=== PATIENT | male | born 1965 | race Caucasian/White ===

== ENCOUNTER 2022-01-29 08:58 | Inpatient (IN) | payer SELFPAY ==
[2022-01-29] VITALS (26 sets, daily range): BP systolic 138–198; BP diastolic 70–113; PULSE 56–64; RESP 12–18; TEMP 36.2–36.6; O2SAT 97–100; BMI 37.8
--- NOTE | ~2022-01-29 | XR_ITS ---
EXAMINATION: XR small bowel follow through DATE: 02/02/2022 15:17 INDICATION: Abdominal pain and bloating, nausea and diarrhea. TECHNIQUE: Textile Artist radiograph(s) of the abdomen was/were obtained. Oral contrast was administered, and sequential radiographs of the abdomen were obtained until oral contrast was noted to be in the proxi mal colon. 9 overhead radiographs and 4 fluoroscopic images of the small bowel were obtained. Fluoros copy exposure time was 0.7 minutes. COMPARISON: CT dated 02/08/2022 FINDINGS: Transit time from the stomach to proximal colon was approximately 60 minutes. There is normal caliber and mucosal fold pattern throughout the small bowel. Terminal ileum is normal. Small amount of contr ast extends into the appendix. IMPRESSION: 1. Normal small bowel follow-through. Reviewed, dictated and finalized at location A. GN INTERN
--- NOTE | ~2022-01-29 | CT_ITS ---
EXAMINATION: CT brain wo con DATE: 02/05/2022 17:04 INDICATION: New onset dizziness TECHNIQUE: Computed tomography (CT) of the head was performed without intravenous contrast. Sagittal and coronal reconstructions were performed. The mA was adjusted according to patient size. Iterative reconstruction technique was employed. The dose-length product was 681.00 mGy-cm. COMPARISON: None FINDINGS: No acute intracranial hemorrhage, acute infarction or abnormal extra axial fluid collection. Ventricl es are normal and symmetric. No mass/mass effect. Multiple symmetric dystrophic calcification is at t he bilateral basal ganglia. The orbits, paranasal sinuses and mastoid air cells are normal. Intracran ial calcified cerebral atherosclerosis is noted. IMPRESSION: 1. No acute intracranial process. Reviewed, dictated and finalized at location A. ESS CONSULTANT
--- NOTE | ~2022-01-29 | MR_ITS ---
EXAMINATION: MR brain/brain stem wo/w con DATE: 02/05/2022 17:39 INDICATION: New onset dizziness TECHNIQUE: Magnetic resonance imaging (MRI) of the brain and brainstem was performed without and with 20 mL Multihance intravenous contrast. Sequences included sagittal and axial T1-weighted SE, axial d iffusion-weighted FS SE, axial T2*-weighted GRE, axial 3D SWAN, axial T2-weighted FLAIR, and axial T2 -weighted FSE. Postcontrast axial and coronal T1-weighted SE was obtained. Apparent diffusion coeffic ient (ADC) maps were created. COMPARISON: Head CT dated 02/05/2022 FINDINGS: There are no areas of restricted diffusion to suggest acute infarction. No intracranial hemorrhage or abnormal intracranial mass lesion. There are a few scattered small foci of nonspecific increased T2- weighted signal intensity in the cerebral white matter which is within normal limits for age. Suscept ibility artifact associated with the dystrophic calcification is at the bilateral basal ganglia. Ther e are no intraparenchymal signal abnormalities seen on the other pulse sequences. The ventricles are symmetric and normal in size with normal variant cavum septum pellucidum at vergae. There are no abno rmal extra-axial fluid collections. Flow voids are seen in the cerebral arteries on the T2-weighted s equences consistent with their expected patency. No mastoid effusion. Visualized orbits and soft tiss ues are unremarkable. There are no areas of abnormal enhancement on the post contrast images. IMPRESSION: 1. Mild age-related changes in the brain. No acute intracranial process or abnormal enhancing brain l esions. Reviewed, dictated and finalized at location A. AKER IMPRESSION: 1. Mild age-related changes in the brain. No acute intracranial process or abno rmal enhancing brain lesions.
--- NOTE | ~2022-01-29 | CT_ITS ---
EXAMINATION: CT abdomen pelvis w con DATE: 01/29/2022 13:00 INDICATION: Abdomen pain, diarrhea. Neuroendocrine tumor. TECHNIQUE: Computed tomography (CT) of the abdomen and pelvis was performed with 100 cc Omnipaque 350 intravenous contrast. The dose-length product was 1834.80 mGy-cm. Automated exposure control and ite rative reconstruction technique were employed. COMPARISON: CT dated 08/23/2018 FINDINGS: There is a subsolid nodule near the right cardiophrenic angle measuring 1.3 cm. There is a nearby calcified nodule at the cardiophrenic angle, benign. There is a 5 mm right upper lobe nodule, image 3. No significant pleural or pericardial effusion. There is cirrhosis of the liver. Splenomegaly. There is ascites. There is a stable 8 cm mesenteric ma ss containing calcifications without significant change from prior study allowing for technique. Ther e is an enlarged left periaortic lymph node at the level of the left renal vein measuring 2.9 cm. Col onic diverticulosis without evidence for diverticulitis. Slight enlargement of small bowel mesenteric mass on the right measuring 3.1 x 1.8 cm compared with 2.2 x 1.8 cm on prior examination. There are additional borderline sized left periaortic and common iliac artery lymph nodes. There are interverte bral lymph nodes bilaterally. Nonobstructive bowel gas pattern. No acute osseous abnormality. IMPRESSION: 1. Right-sided pulmonary nodules, largest being some solid measuring 1.3 cm, possibly metastases. 2: Mesenteric masses, consistent with carcinoid. 3: Abdominal lymphadenopathy. 4: Cirrhosis of the liver with portal hypertension. Ascites. Reviewed, dictated and finalized at location A. R FABRICATION OPERATOR IMPRESSION: 1. Right-sided pulmonary nodules, largest being some solid measuring 1.3 cm, po ssibly metastases. 2: Mesenteric masses, consistent with carcinoid. 3: Abdominal lymphadenopathy. 4: Cirrhosis of the liver with portal hypertension. Ascites.
[2022-01-29 09:25] LABS: Basophils Percent Auto 0.4 % (0.2-1.2); Eosinophils Absolute Auto 0.1 K/mm3 (0-0.3); Eosinophils Percent Auto 3.9 % (0-4.4); Hematocrit 24.9 % (42.0-52.0); Hemoglobin 7.9 g/dL (14.0-18.0); Immature Granulocyte Absolute 0.01 K/mm3 (0.00-0.031); Immature Granulocyte Percent A 0.4 % (0-0.5); Immature Platelet Fraction Pct 4.8 % (0.9-11.2); Lymphocytes Absolute Auto 0.63 K/mm3 (0.9-3.2); Lymphocytes Percent Auto 27.3 % (18.3-44.2); Mean Corpuscular HGB Conc 31.7 g/dl (32-36); Mean Corpuscular Hemoglobin 26.8 pg (26-34); Mean Corpuscular Volume 84.4 fl (80-100); Mean Platelet Volume 10.1 fl (7.4-10.4); Monocytes Absolute Auto 0.2 K/mm3 (0.1-0.6); Monocytes Percent Auto 9.1 % (2.6-8.5); Neutrophils Absolute Auto 1.4 K/mm3 (1.3-6.7); Neutrophils Percent Auto 58.9 % (45.5-73.1); Platelet Count Result 90 k/mm3 (150-375); Red Blood Count 2.95 M/mm3 (4.6-6.20); White Blood Count 2.3 K/mm3 (4.5-10.0)
[2022-01-29 09:33] LABS: Alanine Aminotransferase 13 U/L (6-50); Albumin Level 3.6 g/dL (3.5-5.1); Alkaline Phosphatase 137 U/L (38-126); Anion Gap 5 mmol/L (8-16); Aspartate Amino Transferase 27 U/L (17-59); Bilirubin,Total 1.4 mg/dL (0.2-1.3); Blood Urea Nitrogen 16 mg/dL (9-20); Calcium 8.6 mg/dL (8.4-10.2); Carbon Dioxide 25 mmol/L (22-30); Chloride 108 mmol/L (98-107); Estimated CRCL calculation 86 ml/min; Estimated Glomerular Filt Rate > 60; Glucose 98 mg/dL (65-110); Lipase 122 U/L (23-300); Potassium 3.4 mmol/L (3.4-5.0); Sodium 138 mmol/L (137-145)
[2022-01-29 09:54] LABS: Anisocytosis 2+ (NORMAL); Platelet Estimate Decreased (Adequate); Poikilocytosis 2+ (NORMAL)
[2022-01-29 09:55] LABS: Ovalocytes 1+ (NORMAL)
[2022-01-29 09:57] LABS: Schistocytes None Seen (NORMAL)
[2022-01-29 12:38] LABS: Appearance Urine Clear (Clear); Bilirubin Urine 3+ (Negative); Blood Urine Trace-intact (Negative); Color Urine Amber (Yellow); Glucose Urine UA Negative (Negative); Ketones Urine 1+ mg/dL (Negative); Leukocyte Esterase Ur Negative LEU/UL (Negative); Nitrate Urine Positive (Negative); Protein Urine 2+ mg/dL (Negative); Specific Grav Ur >= 1.030 (1.001-1.035); pH Urine 5.5 (5.0-9.0)
[2022-01-29 12:40] LABS: Bacteria Urine Trace /hpf; Mucus Urine Few /lpf; RBC Urine 21-50 /hpf (0-2); Squamous Epithelial Cell Urine Rare /hpf (Few); WBC Urine 0-3 /hpf
[2022-01-29 13:04] LABS: Add Urine Microscopic? YES
--- NOTE | 2022-01-29 13:21 | ED.ABDPAIN ---
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 Patient states yesterday he noticed bright red stool in his diarrhea and on the toilet paper. Patient denies fever, nausea or vomiting. States the abdominal pain is diffuse. Describes pain as cramping sensation comes in waves. Patient states that his oncologist is at [facility] in [place]. Related Data Allergies Allergy/AdvReac Type Severity Reaction Status Date / Time meperidine Allergy Intermediate Hives / Verified 01/29/22 08:45 Red Face morphine Allergy Intermediate Hives / Verified 01/29/22 08:45 Red Face Penicillins Allergy Intermediate Hives / Verified 01/29/22 08:45 Red Face Review of Systems Review of Systems: CONSTITUTIONAL: Denies fever, chills, or sweats. EYES: Denies visual changes, redness, or discharge. ENT: Denies rhinorrhea, congestion, sore throat, or otalgia. CARDIOVASCULAR: Denies chest pain, palpitations, or edema. RESPIRATORY: Denies cough or dyspnea. GASTROINTESTINAL: Reports abdominal pain, diarrhea GENITOURINARY: Denies dysuria or hematuria. SKIN: Denies rash or itching. MUSCULOSKELETAL: Denies back pain, joint pain, or myalgia. NEUROLOGIC: Denies headache, numbness, dizziness, or weakness. PSYCHIATRIC: Denies anxiety or depression. [facility] Past Medical History Medical History (Updated 01/29/22 @ 14:41 by Aleksandar Allen APRN) HTN (hypertension) with goal to be determined Neuroendocrine cancer Right below-knee amputee Surgical History Surgical History (Updated 01/29/22 @ 14:28 by Pamela Carter NP) H/O hernia repair H/O shoulder surgery Family History Family History (Updated 01/29/22 @ 14:29 by Pamela Carter NP) Mother Diabetes mellitus Cancer Father Diabetes mellitus Heart disease Social History Social History Social History: 2 children disabled Smoking status: Never smoker Exam Narrative: GENERAL: Chronically ill-appearing HEAD: Normocephalic, atraumatic. EYES: Conjunctivae normal, PERRLA and EOMI. CHEST: Clear to auscultation. No respiratory distress. No wheezes rales or rhonchi. No tenderness. HEART: Regular rate and rhythm. No murmur heard. Normal peripheral pulses. ABDOMEN: Soft, diffuse tenderness, morbidly obese nondistended, normal active bowel sounds. BACK: No CVA tenderness EXTREMITIES: right BKA SKIN: Warm, dry, no rash. No noted wounds NEURO: No focal deficits. Alert and oriented x3. MAEW. CN's II-XI intact bilaterally PSYCH: Cooperative. Normal mood and affect. Course Course Emergency Course: 0: Case with Dr. Raj Reece. He is willing to consult patient. Vital Signs Vital signs: Vital Signs Temperature 36.2 C L 01/29/22 09:10 Pulse Rate 56 L 01/29/22 09:10 Respiratory Rate 16 01/29/22 09:10 Blood Pressure 138/70 01/29/22 09:10 Pulse Oximetry 97 01/29/22 09:10 Oxygen Delivery Room Air 01/29/22 09:10 Temperature 36.2 C L 01/29/22 09:10 Pulse Rate 56 L 01/29/22 12:36 Respiratory Rate 12 01/29/22 12:36 Blood Pressure 186/86 H 01/29/22 12:36 Pulse Oximetry 98 01/29/22 12:36 Oxygen Delivery Room Air 01/29/22 09:10 MDM - Abdominal Pain MDM Narrative Medical decision making narrative: 56-year-old male history of diabetes and paraganglioma in multiple sites presented the emergency room with complaints of abdominal pain and diarrhea. Patient states that he was getting his oncological care at [facility] in [place], but had not seen his oncologist since September due to lack of insurance. Patient also remarked that he was havi
--- NOTE | 2022-01-29 14:25 | PM.IMHP ---
H&P: HPI History of Present Illness Date/Time: 01/29/22 14:25 Chief Complaint: Abdominal pain Narrative: The patient has a history appeared ganglioma in multiple sites including his abdomen. The patient came to the emergency room with complaints of abdominal pain for the last 4 months. He has also had diarrhea intermittently for the last 12 days. The patient noticed that he has bright red stool in his diarrhea and on his toilet paper. He denies any fever nausea vomiting. The patient was seeing an oncologist at [facility] in [place] but stated that he ran out of insurance. The patient is having cramping abdominal pain that comes and goes in waves. His H&H is 10.[address] of the abdomen as read as 1. Right-sided pulmonary nodules, largest being some solid measuring 1.3 cm, possibly metastases. 2: Mesenteric masses, consistent with carcinoid. 3: Abdominal lymphadenopathy. 4:? Cirrhosis of the liver with portal hypertension. Ascites. GI and Oncology have been consulted Urine is positive for UTI. He is negative for influenza A/B and COVID. The patient is being admitted to observation on the date of service of 01/29/2022 Review of Systems Review of Systems: See HPI All systems reviewed & are unremarkable except as noted in HPI and below Constitutional: Constitutional: Reports as per HPI and Reports no additional constitutional complaints Eyes: Eyes: Reports as per HPI and Reports no additional eye complaints ENT: Reports system reviewed and no additional complaints, except as documented and Reports Normal hearing present Cardiovascular: Cardiovascular: Reports no additional cardiovascular complaints Respiratory: Respiratory: Reports no additional respiratory complaints and Reports no additional respiratory complaints Gastrointestinal: Gastrointestinal: Reports as per HPI and Reports no additional gastrointestinal complaints Musculoskeletal: Musculoskeletal: Reports no additional musculoskeletal complaints Integumentary/Breasts: Skin/Breast: Reports system reviewed and no additional complaints, except as docu and Reports as per HPI Neurologic: Reports system reviewed and no additional complaints, except as documented, Reports as per HPI and Reports Normal hearing present Psychiatric: Psychiatric: Reports no additional psychiatric complaints and Reports as per HPI Endocrine: Endocrine: Reports no additional endocrine complaints Hematologic/Lymphatic: Hematologic/Lymphatic: Reports no additional hematologic/lymphatic complaints Allergic/Immunologic: Allergic/Immunologic: Reports no additional allergic/immunologic complaints PMFSH Past Medical History Medical History HTN (hypertension) with goal to be determined Neuroendocrine cancer Right below-knee amputee Surgical History Surgical History H/O hernia repair H/O shoulder surgery Family History Family History Mother Diabetes mellitus Cancer Father Diabetes mellitus Heart disease Social History Social History (Updated 01/29/22 @ 17:49 by Pamela Carter NP) Social History: The patient is and has 2 children. He is Disabled. 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 The patient stated he never smoked. He does not use any alcohol marijuana illicit drugs. Code status DNR Smoking status: Never smoker Meds Home Medications and Allergies Allergies Allergy/AdvReac Type Severity Reaction Status Date / Time meperidine Allergy Intermediate Hives / Verified 01/29/22 08:45 Red Face morphine Allergy Intermediate Hives / Verified 01/29/22 08:45 Red Face Penicillins Allergy Intermediate Hives / Verified 01/29/22 08:45 Red Face Vital Signs Vital Signs - 24 hr 01/29/22 09:10 01/29/22 12:36 Temperature 36.2 C L Pulse Rate 56
[2022-01-29 14:49] LABS: Influenza A QL RT-PCR Negative (Negative); Influenza B QL RT-PCR Negative (Negative); SARS-CoV-2 RNA PCR Negative
--- NOTE | 2022-01-29 16:19 | PC.NURSE ---
regular diet food tray ordered
--- NOTE | 2022-01-29 17:55 | ADMGEN ---
This patient, Gino Murphy, was admitted to Medical Room 254-01. Patient/family oriented to hospital policies and general routines including ID bracelet, bed and alarms, visiting hours, pain management, procedures, bathroom and other care routines, personal items, smoking policy, room service/diet, and visiting hours. Information on how to activate the Rapid Response Team has been discussed. Patient/Family are encouraged to report perceived risks to care and to ask questions if they do not understand what they are told or what they should do.
--- NOTE | 2022-01-29 18:51 | PC.NURSE ---
Patient cannot recall current medications, will need to call PCP office in the AM to get current medication list.
[2022-01-29 18:52] LABS: Glucose Point of Care 104 mg/dl (65-105)
[2022-01-29 19:09] LABS: Hematocrit 25.8 % (42.0-52.0); Hemoglobin 8.2 g/dL (14.0-18.0)
[2022-01-29 19:34] LABS: Hemoglobin A1C 4.7 % (<5.7)
[2022-01-29] MEDS: hydrALAZINE HCL 20 MG/ML VIAL 10 MG IV PUSH (20:53)
[2022-01-29] MEDS: FAMOTIDINE 20 MG/2 ML VIAL IV PUSH (20:53)
[2022-01-29] MEDS: hydrOXYzine pamoate 25 MG CAPSULE PO (23:42)
[2022-01-29] MEDS: ZOLPIDEM TARTRATE (*CRX) 5 MG TABLET 10 MG PO (23:42)
[2022-01-30 00:24] LABS: Glucose Point of Care 130 mg/dl (65-105)
[2022-01-30 00:24] LABS: Glucose Point of Care 90 mg/dl (65-105)
[2022-01-30 01:23] LABS: Hematocrit 23.7 % (42.0-52.0); Hemoglobin 7.6 g/dL (14.0-18.0)
[2022-01-30] MEDS: SODIUM CHLORIDE 0.9% IV 1,000 ML 125 ML IV CONT ×3 (02:59→20:51)
[2022-01-30 03:33] VITALS: BP 177/98; PULSE 60; RESP 18; TEMP 36.6; O2SAT 100
[2022-01-30] MEDS: hydrALAZINE HCL 20 MG/ML VIAL 10 MG IV PUSH (04:56)
[2022-01-30 06:08] VITALS: BP 157/75
[2022-01-30 06:34] LABS: Basophils Percent Auto 0.4 % (0.2-1.2); Eosinophils Absolute Auto 0.1 K/mm3 (0-0.3); Eosinophils Percent Auto 2.5 % (0-4.4); Hematocrit 25.3 % (42.0-52.0); Hemoglobin 7.8 g/dL (14.0-18.0); Immature Granulocyte Absolute 0.01 K/mm3 (0.00-0.031); Immature Granulocyte Percent A 0.4 % (0-0.5); Immature Platelet Fraction Pct 4.5 % (0.9-11.2); Lymphocytes Absolute Auto 0.71 K/mm3 (0.9-3.2); Lymphocytes Percent Auto 29.8 % (18.3-44.2); Mean Corpuscular HGB Conc 30.8 g/dl (32-36); Mean Corpuscular Hemoglobin 25.7 pg (26-34); Mean Corpuscular Volume 83.5 fl (80-100); Mean Platelet Volume 9.9 fl (7.4-10.4); Monocytes Absolute Auto 0.2 K/mm3 (0.1-0.6); Monocytes Percent Auto 8.4 % (2.6-8.5); Neutrophils Absolute Auto 1.4 K/mm3 (1.3-6.7); Neutrophils Percent Auto 58.5 % (45.5-73.1); Platelet Count Result 89 k/mm3 (150-375); Red Blood Count 3.03 M/mm3 (4.6-6.20); White Blood Count 2.4 K/mm3 (4.5-10.0)
[2022-01-30 06:51] LABS: Magnesium 1.5 mg/dL (1.6-2.3)
[2022-01-30 06:56] LABS: Platelet Estimate Decreased (Adequate)
[2022-01-30 06:56] LABS: Lactic Acid Reflex 0.8 mmol/L (0.7-2.0)
[2022-01-30 06:57] LABS: Ovalocytes 2+ (NORMAL)
[2022-01-30 06:58] LABS: Schistocytes Rare (NORMAL); Tear Drop Cells 1+ (NORMAL)
[2022-01-30] MEDS: FAMOTIDINE 20 MG/2 ML VIAL IV PUSH ×2 (08:17→20:48)
[2022-01-30 09:12] LABS: Glucose Point of Care 92 mg/dl (65-105)
[2022-01-30] MEDS: cefTRIAXone 2 GM in SODIUM CHLORIDE 0.9% IV 100 ML 200 ML IVPB (09:45)
--- NOTE | 2022-01-30 10:28 | WPDGICN ---
Assessment and Plan Assessment and plan (1) Rectal bleeding: Code(s): K62.5 - Hemorrhage of anus and rectum Status: Acute Assessment and Plan: Patient with rectal bleeding associated with diarrhea. After having had diarrhea for this 3 weeks patient had bright red blood per rectum yesterday. I suspect this may be from hemorrhoids but cannot exclude colitis or other lesions in the colon. To evaluate this more thoroughly, initially I would recommend stool cultures be obtained. Subsequently colonoscopy can be performed early next week. Patient will require laxative preparation for this. (2) Diarrhea: Code(s): R19.7 - Diarrhea, unspecified Status: Acute Assessment and Plan: Diarrhea for 3 weeks. Of uncertain etiology. He has had no stool since admission hospital. Stool cultures are suggested initially. I am a somewhat uncertain if this is related to his neuroendocrine tumor which may be carcinoid (3) Neuroendocrine cancer: Code(s): C7A.8 - Other malignant neuroendocrine tumors Status: Acute Assessment and Plan: Patient followed at [facility] for neuroendocrine tumor. Patient is given the diagnosis of a periganglioma. X-rays suggest this is a carcinoid tumor. Continued follow-up with [facility] Oncology is advised. (4) Cirrhosis: Code(s): K74.60 - Unspecified cirrhosis of liver Status: Acute Assessment and Plan: Supportive cares advised. Ultimately follow-up with his is established doctors at [facility]. I suspect this may be on the basis prior alcohol use. GI Consult Note Consult date/time: 01/30/22 10:28 Reason for consult: Diarrhea, rectal bleeding, cirrhosis, carcinoid tumors. HPI: Gino Murphy is a 56 year old male I am asked to see because of diarrhea and bleeding. Patient has an established diagnosis of paraganglioma. 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 Currently followed at [facility]. This been present for several years. [place] sky apparently lost his job in over the last several months has not been seen by any physicians there. States he has had diarrhea for 3 weeks. Yesterday had some bright red blood per rectum noted in the toilet bowl. And for this reason presented to the hospital. He has had no stool since that time. Patient denies any significant abdominal pain. He underwent a CT scan in the emergency room which reveals intra-abdominal masses consistent with carcinoid tumors he also has felt to have cirrhosis with small degree of ascites. Patient has a past medical history of a right [id number] amputation. Review of Systems Review of Systems: Review of systems noncontributory. [facility] Past Medical History Medical History (Updated 01/30/22 @ 10:31 by Raj Batista MD) HTN (hypertension) with goal to be determined Neuroendocrine cancer Right below-knee amputee Surgical History Surgical History H/O hernia repair H/O shoulder surgery Family History Family History Mother Diabetes mellitus Cancer Father Diabetes mellitus Heart disease Social History Social History (Updated 01/29/22 @ 17:49 by Pamela Carter NP) Social History: The patient is and has 2 children. He is Disabled. He has 2 children of the durable power trademark attorney for healthcare. The patient stated he never smoked. He does not use any alcohol marijuana illicit drugs. Code status DNR Smoking status: Never smoker Second hand tobacco smoke exposure: Yes Alcohol intake: never Substance use: never Lack of Transportation: YES Lack of Food: Often True Current Housing: I Have Housing Concerned About Future Housing: No Difficulty Paying Gas/Electric Bills: No Difficulty Paying for Meds: YES Currently Unemployed: No Education: High School Diploma/GED Difficulty w/ Childcare or Fami
[2022-01-30] MEDS: MAGNESIUM SULF 2 GM/WATER 50ML 2 GM/50 ML BAG IVPB (11:01)
--- NOTE | 2022-01-30 11:36 | PM.IMPN ---
Progress Note: A&P Assessment and Plan (1) Neuroendocrine cancer: Code(s): C7A.8 - Other malignant neuroendocrine tumors Status: Acute Assessment and Plan: -the patient stated that his insurance ran out and will need help with assistance with medical care. assistance coordinator has been consulted. -the patient stated that he has not seen the oncologist and many months. Dr. Puri had been consulted and agrees to see the patient. -the patient is not sure if he is still receiving treatment. The patient is a DNR. 01/30/2022 interval history: patient with history of: ganglioma in multiple sites including his abdomen.? presented emergency department with complaint diarrhea for 2 weeks it yesterday patient noticed red bright blood in stool and on toilet paper, to further evaluate cause of patient diarrhea stool culture is pending and will continue to monitor suspect patient may have hemorrhoids, seen by GI recommending to follow-up on stool culture remained clinically stable patient will need colonoscopy to further evaluate, and states symptoms have improved compared to when he arrived, denies any abdominal pain nausea or vomiting fever or chills continue to monitor. patient with history of neuroendocrine malignancy patient be seen by Dr. Puri cafeteria helper Oncologist. (2) Diarrhea: Code(s): R19.7 - Diarrhea, unspecified Status: Acute Assessment and Plan: -stool specimens have been sent. Stool for occult blood -the patient stated he is been having bright red blood in his stools. (3) HTN (hypertension) with goal to be determined: Code(s): I10 - Essential (primary) hypertension Status: Acute Assessment and Plan: -hydralazine (4) UTI (urinary tract infection): Code(s): N39.0 - Urinary tract infection, site not specified Status: Acute Assessment and Plan: -start with Rocephin. -tailor antibiotics to blood and urine cultures (5) GI bleed: Code(s): K92.2 - Gastrointestinal hemorrhage, unspecified Status: Acute Assessment and Plan: -IV Pepcid -H&H every 6 hours -stool for occult blood. -GI has been consulted. -continue with IV fluids Plan The patient has a chronic ulcerated area to the left foot approximally half dollar size. Wound Care has been consulted. The patient has a right [id number] amputation and uses a prosthesis Subjective Date/time seen: 01/30/22 11:36 Abdominal pain HPI-Narrative: The patient has a history appeared ganglioma in multiple sites including his abdomen.? The patient came to the emergency room with complaints of abdominal pain for the last 4 months.? He has also had diarrhea intermittently for the last 12 days.? The patient noticed that he has bright red stool in his diarrhea and on his toilet paper.? He denies any fever nausea vomiting.? The patient was seeing an oncologist at [facility] in [place] but stated that he ran out of insurance.? The patient is having cramping abdominal pain that comes and goes in waves.? His H&H is 10.9 and 24.9.? CT of the abdomen as read as?1. Right-sided pulmonary nodules, largest being some solid measuring 1.3 cm, possibly metastases. 2: Mesenteric masses, consistent with carcinoid. 3: Abdominal lymphadenopathy. 4:? Cirrhosis of the liver with portal hypertension. Ascites. GI and Oncology have been consulted Urine is positive for UTI.? He is negative for influenza A/B and COVID.? The patient is being admitted to observation on the date of service of 01/29/2022 01/30/2022 interval history: patient with history of: ganglioma in multiple sites including his abdomen.? presented emergency department with complaint diarrhea for 2 weeks it yesterday patient noticed red bright blood in stool and on toilet paper, to further evaluate cause of patient diarrhea stool culture is pending and will continue to monitor suspect patient may have hemorrhoids, seen by GI recommending to follow-up on stool cul
[2022-01-30 11:54] LABS: Hematocrit 24.9 % (42.0-52.0); Hemoglobin 7.7 g/dL (14.0-18.0)
[2022-01-30 12:29] LABS: Glucose Point of Care 91 mg/dl (65-105)
[2022-01-30] MEDS: hydrOXYzine pamoate 25 MG CAPSULE PO (13:52)
[2022-01-30] MEDS: ACETAMINOPHEN 500 MG TABLET 1000 MG PO (14:18)
[2022-01-30 14:46] VITALS: BP 175/72; PULSE 61; RESP 18; TEMP 36.2; O2SAT 99
[2022-01-30 15:44] VITALS: BP 151/68
[2022-01-30 18:17] LABS: Glucose Point of Care 95 mg/dl (65-105)
[2022-01-30 19:52] VITALS: BP 155/74; PULSE 64; RESP 16; TEMP 36.4; O2SAT 99
[2022-01-30] MEDS: ZOLPIDEM TARTRATE (*CRX) 5 MG TABLET PO (20:48)
[2022-01-30 20:58] LABS: Glucose Point of Care 165 mg/dl (65-105)
[2022-01-30] MEDS: PRAMIPEXOLE 0.125 MG TABLET PO (21:09)
[2022-01-31 00:06] LABS: Toxigenic C. Diff NEGATIVE (NEGATIVE)
[2022-01-31 03:36] LABS: IFOB Positive Control Positive; Immunochemical Fecal Occult Bl Positive (N)
[2022-01-31 05:24] VITALS: BP 166/86; PULSE 60; RESP 14; TEMP 36.4; O2SAT 99
[2022-01-31] MEDS: LEVOTHYROXINE SODIUM 112 MCG TABLET PO (06:14)
[2022-01-31] MEDS: SODIUM CHLORIDE 0.9% IV 1,000 ML 125 ML IV CONT (06:14)
[2022-01-31 06:30] LABS: Basophils Percent Auto 0.5 % (0.2-1.2); Eosinophils Absolute Auto 0.1 K/mm3 (0-0.3); Eosinophils Percent Auto 3.8 % (0-4.4); Hematocrit 23.8 % (42.0-52.0); Hemoglobin 7.4 g/dL (14.0-18.0); Immature Granulocyte Absolute 0.01 K/mm3 (0.00-0.031); Immature Granulocyte Percent A 0.5 % (0-0.5); Lymphocytes Absolute Auto 0.64 K/mm3 (0.9-3.2); Mean Corpuscular HGB Conc 31.1 g/dl (32-36); Mean Corpuscular Hemoglobin 26.2 pg (26-34); Mean Corpuscular Volume 84.4 fl (80-100); Mean Platelet Volume 10.9 fl (7.4-10.4); Monocytes Absolute Auto 0.2 K/mm3 (0.1-0.6); Monocytes Percent Auto 8.7 % (2.6-8.5); Neutrophils Absolute Auto 0.9 K/mm3 (1.3-6.7); Neutrophils Percent Auto 51.5 % (45.5-73.1); Platelet Count Result 92 k/mm3 (150-375); Red Blood Count 2.82 M/mm3 (4.6-6.20)
[2022-01-31 06:42] LABS: Alanine Aminotransferase 13 U/L (6-50); Albumin Level 3.3 g/dL (3.5-5.1); Alkaline Phosphatase 125 U/L (38-126); Anion Gap 6 mmol/L (8-16); Aspartate Amino Transferase 26 U/L (17-59); Blood Urea Nitrogen 13 mg/dL (9-20); Carbon Dioxide 22 mmol/L (22-30); Chloride 109 mmol/L (98-107); Estimated CRCL calculation 92 ml/min; Estimated Glomerular Filt Rate > 60; Glucose 77 mg/dL (65-110); Magnesium 1.8 mg/dL (1.6-2.3); Potassium 3.5 mmol/L (3.4-5.0); Sodium 137 mmol/L (137-145)
[2022-01-31] MEDS: ACETAMINOPHEN 500 MG TABLET 1000 MG PO (06:54)
[2022-01-31 07:19] LABS: White Blood Count 1.8 K/mm3 (4.5-10.0)
[2022-01-31 07:21] LABS: Ovalocytes 1+ (NORMAL); Platelet Estimate Decreased (Adequate); Schistocytes Rare (NORMAL); Tear Drop Cells 1+ (NORMAL)
[2022-01-31 08:14] VITALS: PULSE 59
[2022-01-31] MEDS: FERROUS SULFATE 324 MG TABLET PO (08:14)
[2022-01-31] MEDS: SPIRONOLACTONE 50 MG TABLET PO (08:14)
[2022-01-31] MEDS: carvediloL 6.25 MG TABLET PO (08:14)
[2022-01-31] MEDS: hydrOXYzine pamoate 25 MG CAPSULE PO ×2 (08:14→18:19)
[2022-01-31] MEDS: hydrALAZINE HCL 25 MG TABLET PO (08:14)
[2022-01-31] MEDS: GABAPENTIN 400 MG CAPSULE PO (08:15)
[2022-01-31] MEDS: PANTOPRAZOLE 40 MG TABLET PO (08:16)
[2022-01-31] MEDS: ASPIRIN 81 MG CHEWABLE TABLET PO (08:16)
[2022-01-31] MEDS: FAMOTIDINE 20 MG/2 ML VIAL IV PUSH ×2 (08:16→20:13)
[2022-01-31] MEDS: cefTRIAXone 2 GM in SODIUM CHLORIDE 0.9% IV 100 ML 200 ML IVPB (08:27)
[2022-01-31 08:47] LABS: Glucose Point of Care 77 mg/dl (65-105)
--- NOTE | 2022-01-31 10:29 | WPDGIPROGNO ---
Progress Note: A&P Assessment and Plan (1) Rectal bleeding: Code(s): K62.5 - Hemorrhage of anus and rectum Status: Acute Assessment and Plan: Patient presented with rectal bleeding associated with diarrhea. This appears to have resolved. Stool Hemoccult confirmed positive. Prompt resolution of rectal bleeding likely points towards perirectal bleeding source. Hemorrhoids are considered highly likely. Because of patient's significant comorbid disease is including a neuroendocrine tumor will plan to proceed with colonoscopy. Patient reports several previous colonoscopies at other institutions that were unremarkable. Colonoscopy will be performed Tuesday after preparation today. (2) Right below-knee amputee: Code(s): Z89.511 - Acquired absence of right leg below knee Status: Acute (3) Cirrhosis: Code(s): K74.60 - Unspecified cirrhosis of liver Status: Acute Assessment and Plan: Patient with underlying cirrhosis of liver. This is followed elsewhere. Currently at [facility]. He was been told is related to MENDEZ. At this point would suggest supportive care long-term follow-up with his primary care service. (4) Neuroendocrine cancer: Code(s): C7A.8 - Other malignant neuroendocrine tumors Status: Acute (5) Diarrhea: Code(s): R19.7 - Diarrhea, unspecified Status: Acute Assessment and Plan: Diarrhea patient states been going on for several weeks. It appears intermittent he has had a formed stool since being here in followed by a loose stool later in the day. This pattern is suspicious for irritable bowel syndrome. Fiber supplementation may be of benefit for this patient. Stool cultures are in progress and negative to date. (6) Pancytopenia: Code(s): D61.818 - Other pancytopenia Status: Acute Assessment and Plan: Pancytopenia noted on lab testing. suspect this is related to his history of cirrhosis. Subjective Date/time seen: 01/31/22 10:29 Patient alert this morning. Reports no additional blood in stool. He states he had 1 formed stool in 1 loose stool yesterday. Denies abdominal pain. Review of Systems Review of Systems: Review of systems noncontributory. Exam Narrative: Physical exam reveals patient be lying in bed. HEENT ENT exam unremarkable. Patient is anicteric. Lungs are clear. Heart without murmur. Abdomen is obese. He has right [id number] amputation. Objective Data Vital Signs Vital Signs: Vital Signs - 24 hr 01/30/22 14:46 01/30/22 15:44 01/30/22 19:52 Temperature 97.1 F L 97.6 F Pulse Rate 61 64 Respiratory Rate 18 16 Blood Pressure 175/72 H 151/68 H 155/74 H Pulse Oximetry 99 99 Oxygen Delivery 01/30/22 20:00 01/31/22 05:24 01/31/22 08:14 Temperature 97.6 F Pulse Rate 60 59 L Respiratory Rate 14 Blood Pressure 166/86 H Pulse Oximetry 99 Oxygen Delivery Room Air Intake/Output Intake/Output: Intake & Output 01/28/22 01/29/22 01/30/22 01/31/22 23:59 23:59 23:59 23:59 Intake Total 50 4016 1100 Output Total 872 424 8754 Balance -500 3416 100 Meds/Results Medications: Active Medications Generic Name Dose Route Start Last Admin Trade Name Freq PRN Reason Stop Dose Admin Acetaminophen 1,000 mg 01/30/22 13:55 01/31/22 06:54 Acetaminophen 500 Mg Tablet PO 1,000 mg Q6H PRN Administration Pain or Fever Aspirin 81 mg 01/31/22 09:00 01/31/22 08:16 Aspirin 81 Mg Chewable Tablet PO 81 mg DAILY MARY Administration Carvedilol 6.25 mg 01/31/22 09:00 01/31/22 08:14 Carvedilol 6.25 Mg Tablet PO 6.25 mg DAILY MARY Administration Famotidine 20 mg 01/29/22 21:00 01/31/22 08:16 Famotidine 20 Mg/2 Ml Vial IV PUSH 20 mg Q12HR MARY Administration Ferrous Sulfate 324 mg 01/31/22 08:00 01/31/22 08:14 Ferrous Sulfate 324 Mg Tablet PO 324 mg DAILY@0800 MARY Administration Gabapentin 400 mg
--- NOTE | 2022-01-31 11:47 | PM.IMPN ---
Progress Note: A&P Assessment and Plan (1) Neuroendocrine cancer: Code(s): C7A.8 - Other malignant neuroendocrine tumors Status: Acute Assessment and Plan: -the patient stated that his insurance ran out and will need help with assistance with medical care. bereavement program coordinator has been consulted. -the patient stated that he has not seen the oncologist and many months. Dr. Puri had been consulted and agrees to see the patient. -the patient is not sure if he is still receiving treatment. The patient is a DNR. 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 presented emergency department with complaint diarrhea for 2 weeks it and on 01/29 patient noticed red bright blood in stool and on toilet paper, to further evaluate cause of patient diarrhea stool culture is pending and will continue to monitor suspect patient may have hemorrhoids, seen by GI recommending to follow-up on stool culture, remained clinically stable patient will need colonoscopy to further evaluate, and states symptoms have improved and frequency of bowel movement compared to when he arrived, denies any abdominal pain nausea or vomiting fever or chills continue to monitor. patient with history of neuroendocrine malignancy is white counts are trending, patient will be seen by Dr. Puri senior trainer Oncologist and further recommendation to follow. (2) Diarrhea: Code(s): R19.7 - Diarrhea, unspecified Status: Acute Assessment and Plan: -stool specimens have been sent. Stool for occult blood -the patient stated he is been having bright red blood in his stools. (3) HTN (hypertension) with goal to be determined: Code(s): I10 - Essential (primary) hypertension Status: Acute Assessment and Plan: -hydralazine (4) UTI (urinary tract infection): Code(s): N39.0 - Urinary tract infection, site not specified Status: Acute Assessment and Plan: -start with Rocephin. -tailor antibiotics to blood and urine cultures (5) GI bleed: Code(s): K92.2 - Gastrointestinal hemorrhage, unspecified Status: Acute Assessment and Plan: -IV Pepcid -H&H every 6 hours -stool for occult blood. -GI has been consulted. -continue with IV fluids Plan The patient has a chronic ulcerated area to the left foot approximally half dollar size. Wound Care has been consulted. 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 presented emergency department with complaint diarrhea for 2 weeks it and on 01/29 patient noticed red bright blood in stool and on toilet paper, to further evaluate cause of patient diarrhea stool culture is pending and will continue to monitor suspect patient may have hemorrhoids, seen by GI recommending to follow-up on stool culture, remained clinically stable patient will need colonoscopy to further evaluate, and states symptoms have improved and frequency of bowel movement compared to when he arrived, denies any abdominal pain nausea or vomiting fever or chills continue to monitor. patient with history of neuroendocrine malignancy is white counts are trending, patient will be seen by Dr. Puri senior trainer Oncologist and further recommendation to follow. Review of Systems Review of Systems: All systems reviewed & are unremarkable except as noted in HPI and below Exam Narrative: moderately obese Patient is comfortable, NAD HEENT: eyes are clear and none icteric LUNGS:CTA HEART: RR S1S2 ABD: BS+, Soft and nontender Lower extremities: no edema SKIN: nonjaundiced Neuro: grossly intact. Objective Data Vital Signs Vital Signs: Vital Signs - 24 hr 01/30/22 14:46 01/30/22 15:44 01/30/22 19:52 Temperature 97.1 F L 97.6 F Pulse Rate 61 64 Respir
[2022-01-31 11:51] LABS: Glucose Point of Care 81 mg/dl (65-105)
[2022-01-31] MEDS: PEG (High)/E-LYTE SOLN 4,000 ML BTL 4000 ML PO (12:56)
[2022-01-31 14:01] VITALS: BP 161/87; PULSE 66; RESP 16; TEMP 36.6; O2SAT 99
[2022-01-31 16:54] LABS: Glucose Point of Care 93 mg/dl (65-105)
[2022-01-31 19:23] VITALS: BP 138/70; PULSE 55; RESP 18; TEMP 36.4; O2SAT 100
[2022-01-31] MEDS: ZOLPIDEM TARTRATE (*CRX) 5 MG TABLET PO (20:13)
[2022-01-31] MEDS: PRAMIPEXOLE 0.125 MG TABLET PO (20:13)
[2022-01-31 20:37] LABS: Glucose Point of Care 83 mg/dl (65-105)
[2022-02-01] VITALS (11 sets, daily range): BP systolic 160–186; BP diastolic 70–102; PULSE 55–66; RESP 15–20; TEMP 36.2–37; O2SAT 97–100
[2022-02-01] MEDS: ACETAMINOPHEN 500 MG TABLET 1000 MG PO ×2 (01:06→17:14)
[2022-02-01 05:44] LABS: Basophils Percent Auto 0.5 % (0.2-1.2); Eosinophils Absolute Auto 0.1 K/mm3 (0-0.3); Eosinophils Percent Auto 3.3 % (0-4.4); Hematocrit 24.7 % (42.0-52.0); Hemoglobin 7.7 g/dL (14.0-18.0); Immature Granulocyte Absolute 0.01 K/mm3 (0.00-0.031); Immature Granulocyte Percent A 0.5 % (0-0.5); Immature Platelet Fraction Pct 3.9 % (0.9-11.2); Lymphocytes Absolute Auto 0.75 K/mm3 (0.9-3.2); Lymphocytes Percent Auto 35.2 % (18.3-44.2); Mean Corpuscular HGB Conc 31.2 g/dl (32-36); Mean Corpuscular Volume 83.4 fl (80-100); Monocytes Absolute Auto 0.2 K/mm3 (0.1-0.6); Monocytes Percent Auto 9.4 % (2.6-8.5); Neutrophils Absolute Auto 1.1 K/mm3 (1.3-6.7); Neutrophils Percent Auto 51.1 % (45.5-73.1); Platelet Count Result 88 k/mm3 (150-375); Red Blood Count 2.96 M/mm3 (4.6-6.20); Red Cell Distribution Width 16.6 % (11.5-14.5); White Blood Count 2.1 K/mm3 (4.5-10.0)
[2022-02-01 05:51] LABS: Alanine Aminotransferase 14 U/L (6-50); Albumin Level 3.4 g/dL (3.5-5.1); Alkaline Phosphatase 121 U/L (38-126); Anion Gap 7 mmol/L (8-16); Aspartate Amino Transferase 28 U/L (17-59); Bilirubin,Total 1.1 mg/dL (0.2-1.3); Blood Urea Nitrogen 12 mg/dL (9-20); Calcium 8.4 mg/dL (8.4-10.2); Carbon Dioxide 23 mmol/L (22-30); Chloride 108 mmol/L (98-107); Estimated CRCL calculation 85 ml/min; Estimated Glomerular Filt Rate 57; Glucose 76 mg/dL (65-110); Magnesium 1.7 mg/dL (1.6-2.3); Potassium 3.8 mmol/L (3.4-5.0); Sodium 138 mmol/L (137-145)
[2022-02-01] MEDS: PANTOPRAZOLE 40 MG TABLET PO (08:06)
[2022-02-01] MEDS: ASPIRIN 81 MG CHEWABLE TABLET PO (08:06)
[2022-02-01] MEDS: SPIRONOLACTONE 50 MG TABLET PO (08:07)
[2022-02-01] MEDS: hydrALAZINE HCL 25 MG TABLET PO (08:07)
[2022-02-01] MEDS: GABAPENTIN 400 MG CAPSULE PO (08:07)
[2022-02-01] MEDS: carvediloL 6.25 MG TABLET PO (08:07)
[2022-02-01] MEDS: FAMOTIDINE 20 MG/2 ML VIAL IV PUSH ×2 (08:07→20:08)
[2022-02-01] MEDS: cefTRIAXone 2 GM in SODIUM CHLORIDE 0.9% IV 100 ML 200 ML IVPB (08:15)
[2022-02-01 08:40] LABS: Glucose Point of Care 80 mg/dl (65-105)
[2022-02-01 12:05] LABS: Glucose Point of Care 81 mg/dl (65-105)
[2022-02-01] MEDS: LACTATED RINGERS 1,000 ML 150 ML IV CONT (13:23)
--- NOTE | 2022-02-01 13:33 | WPDANESEPPF ---
Anes - Initial Pre Proc Eval Procedure: Operation Date: 02/01/22 14:45 Proposed Procedures p Colonoscopy - Raj Batista MD Date/Time: 02/01/22 13:33 Surgeon: Marsha Carbone DO Pre Op Diagnosis: Diarrhea Patient Data Age: 56 Gender: M Height: 1.93 m Weight: 141.1 kg Last Vital Signs Temp 36.3 C L 02/01/22 13:18 Pulse 55 L 02/01/22 13:18 Resp 18 02/01/22 13:18 BP 177/82 H 02/01/22 13:18 Pulse Ox 100 02/01/22 13:18 O2 Del Method Room Air 02/01/22 13:18 Allergies Allergy/AdvReac Type Severity Reaction Status Date / Time meperidine Allergy Intermediate Hives / Verified 02/01/22 13:15 Red Face morphine Allergy Intermediate Hives / Verified 02/01/22 13:15 Red Face Penicillins Allergy Intermediate Hives / Verified 02/01/22 13:15 Red Face Home Medications Medication Instructions Recorded Confirmed Type zolpidem 5 mg tablet 5 mg PO HS 01/29/22 01/29/22 History aspirin 81 mg chewable tablet 81 mg PO DAILY 01/30/22 01/30/22 History carvedilol 6.25 mg tablet 6.25 mg PO DAILY 01/30/22 01/30/22 History ferrous sulfate 325 mg (65 mg 325 mg PO DAILY 01/30/22 01/30/22 History iron) tablet (FeroSul) gabapentin 400 mg capsule 400 mg PO DAILY 01/30/22 01/30/22 History hydralazine 25 mg tablet 25 mg PO DAILY 01/30/22 01/30/22 History hydroxyzine HCl 25 mg tablet 25 mg PO Q6H PRN Anxiety 01/30/22 01/30/22 History levothyroxine 112 mcg tablet 112 mcg PO DAILY 01/30/22 01/30/22 History omeprazole 40 mg capsule,delayed 40 mg PO DAILY 01/30/22 01/30/22 History release pramipexole 0.125 mg tablet 0.125 mg PO HS 01/30/22 01/30/22 History prochlorperazine maleate 10 mg 10 mg PO Q6H PRN Nausea 01/30/22 01/30/22 History tablet spironolactone 50 mg tablet 50 mg PO DAILY 01/30/22 01/30/22 History Laboratory Tests 01/31/22 01/31/22 02/01/22 16:51 20:15 05:15 WBC 2.1 K/mm3 L K/mm3 (4.5-10.0) RBC 2.96 M/mm3 L M/mm3 (4.6-6.20) Hgb 7.7 g/dL L g/dL (14.0-18.0) Hct 24.7 % L % (42.0-52.0) MCV 83.4 fl fl (80-100) MCH 26.0 pg pg (26-34) MCHC 31.2 g/dl L g/dl (32-36) RDW 16.6 % H % (11.5-14.5) Plt Count 88 k/mm3 L k/mm3 (150-375) MPV 10.0 fl fl (7.4-10.4) Immature Gran % (Auto) 0.5 % % (0-0.5) Neut % (Auto) 51.1 % % (45.5-73.1) Lymph % (Auto) 35.2 % % (18.3-44.2) Reynolds % (Auto) 9.4 % H % (2.6-8.5) Eos % (Auto) 3.3 % % (0-4.4) Baso % (Auto) 0.5 % % (0.2-1.2) Lymph # (Auto) 0.75 K/mm3 L K/mm3 (0.9-3.2) Reynolds # (Auto) 0.2 K/mm3 K/mm3 (0.1-0.6) Eos # (Auto) 0.1 K/mm3 K/mm3 (0-0.3) Baso # (Auto) 0.0 K/mm3 K/mm3 (0.0-0.1) Abs Immat Gran (auto) 0.01 K/mm3 K/mm3 (0.00-0.031) Absolute Neuts (auto) 1.1 K/mm3 L K/mm3 (1.3-6.7) Absolute Nucleated RBC 0.0 K/mm3 K/mm3 (0.0-0.012) Nucleated RBC % 0.0 % % (0.0-0.2) % Immature Plt Fraction 3.9 % % (0.9-11.2) Sodium Potassium Chloride Carbon Dioxide Anion Gap BUN Creatinine Estim Creat Clear Calc Estimated GFR Glucose POC Capillary Glucose 93 mg/dl mg/dl 83 mg/dl mg/dl (65-105) (65-105) Calcium Magnesium Total Bilirubin AST ALT Alkaline Phosphatase Total Protein Albumin 02/01/22 02/01/22 02/01/22 05:15 08:35 11:53 WBC RBC Hgb Hct MCV MCH MCHC RDW Plt Count MPV Immature Gran % (Auto) Neut % (Auto) Lymph % (Auto) Reynolds % (Auto) Eos % (Auto)
[2022-02-01] MEDS: hydrALAZINE HCL 20 MG/ML VIAL 10 MG IV PUSH (14:49)
[2022-02-01 17:03] LABS: Glucose Point of Care 86 mg/dl (65-105)
[2022-02-01] MEDS: SILVERGEL (ELTA) 45 ML 1 APPLIC TOPICAL (17:12)
[2022-02-01] MEDS: FERROUS SULFATE 324 MG TABLET PO (17:12)
--- NOTE | 2022-02-01 17:26 | PM.IMPN ---
Progress Note: A&P Assessment and Plan (1) Neuroendocrine cancer: Code(s): C7A.8 - Other malignant neuroendocrine tumors Status: Acute Assessment and Plan: -the patient stated that his insurance ran out and will need help with assistance with medical care. online content coordinator has been consulted. -the patient stated that he has not seen the oncologist and many months. Dr. Puri had been consulted and agrees to see the patient. -the patient is not sure if he is still receiving treatment. The patient is a DNR. 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 presented emergency department with complaint diarrhea for 2 weeks it and on 01/29 patient noticed red bright blood in stool and on toilet paper, to further evaluate cause of patient diarrhea stool culture is pending and will continue to monitor suspect patient may have hemorrhoids, seen by GI recommending to follow-up on stool culture, stool cultures are pending, remained clinically stable today patient has colonoscopy it showed several internal hemorrhoid and GI suspect most likely cause of his bleeding, nd states symptoms have improved and frequency of bowel movement compared to when he arrived, denies any abdominal pain nausea or vomiting fever or chills continue to monitor. patient with history of neuroendocrine malignancy is white counts are trending, patient will be seen by Dr. Puri property disposal officer Oncologist and further recommendation to follow. (2) Diarrhea: Code(s): R19.7 - Diarrhea, unspecified Status: Acute Assessment and Plan: -stool specimens have been sent. Stool for occult blood -the patient stated he is been having bright red blood in his stools. (3) HTN (hypertension) with goal to be determined: Code(s): I10 - Essential (primary) hypertension Status: Acute Assessment and Plan: -hydralazine (4) UTI (urinary tract infection): Code(s): N39.0 - Urinary tract infection, site not specified Status: Acute Assessment and Plan: -start with Rocephin. -tailor antibiotics to blood and urine cultures (5) GI bleed: Code(s): K92.2 - Gastrointestinal hemorrhage, unspecified Status: Acute Assessment and Plan: -IV Pepcid -H&H every 6 hours -stool for occult blood. -GI has been consulted. -continue with IV fluids Plan The patient has a chronic ulcerated area to the left foot approximally half dollar size. Wound Care has been consulted. 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 presented emergency department with complaint diarrhea for 2 weeks it and on 01/29 patient noticed red bright blood in stool and on toilet paper, to further evaluate cause of patient diarrhea stool culture is pending and will continue to monitor suspect patient may have hemorrhoids, seen by GI recommending to follow-up on stool culture, stool cultures are pending, remained clinically stable today patient has colonoscopy it showed several internal hemorrhoid and GI suspect most likely cause of his bleeding, nd states symptoms have improved and frequency of bowel movement compared to when he arrived, denies any abdominal pain nausea or vomiting fever or chills continue to monitor. patient with history of neuroendocrine malignancy is white counts are trending, patient will be seen by Dr. Puri property disposal officer Oncologist and further recommendation to follow. Review of Systems Review of Systems: All systems reviewed & are unremarkable except as noted in HPI and below Exam Narrative: moderately obese Patient is comfortable, NAD HEENT: eyes are clear and none icteric LUNGS:CTA HEART: RR S1S2 ABD: BS+, Soft and nontender Lower extremities: no edema SKIN: nonjaundiced Neuro: stanley
[2022-02-01] MEDS: PRAMIPEXOLE 0.125 MG TABLET PO (20:08)
[2022-02-01] MEDS: ZOLPIDEM TARTRATE (*CRX) 5 MG TABLET PO (20:08)
[2022-02-01 21:06] LABS: Glucose Point of Care 90 mg/dl (65-105)
[2022-02-02 05:31] LABS: Eosinophils Absolute Auto 0.1 K/mm3 (0-0.3); Eosinophils Percent Auto 3.5 % (0-4.4); Hematocrit 25.4 % (42.0-52.0); Immature Granulocyte Absolute 0.01 K/mm3 (0.00-0.031); Immature Granulocyte Percent A 0.5 % (0-0.5); Lymphocytes Absolute Auto 0.66 K/mm3 (0.9-3.2); Mean Corpuscular HGB Conc 31.5 g/dl (32-36); Mean Corpuscular Hemoglobin 26.1 pg (26-34); Mean Corpuscular Volume 82.7 fl (80-100); Mean Platelet Volume 10.9 fl (7.4-10.4); Monocytes Absolute Auto 0.2 K/mm3 (0.1-0.6); Platelet Count Result 89 k/mm3 (150-375); Red Blood Count 3.07 M/mm3 (4.6-6.20); Red Cell Distribution Width 16.7 % (11.5-14.5)
[2022-02-02 05:51] LABS: Alanine Aminotransferase 14 U/L (6-50); Albumin Level 3.6 g/dL (3.5-5.1); Alkaline Phosphatase 125 U/L (38-126); Aspartate Amino Transferase 30 U/L (17-59); Bilirubin,Total 1.3 mg/dL (0.2-1.3); Blood Urea Nitrogen 11 mg/dL (9-20); Calcium 8.5 mg/dL (8.4-10.2); Carbon Dioxide 23 mmol/L (22-30); Estimated CRCL calculation 85 ml/min; Estimated Glomerular Filt Rate 57; Glucose 75 mg/dL (65-110); Magnesium 1.6 mg/dL (1.6-2.3)
[2022-02-02] MEDS: LEVOTHYROXINE SODIUM 112 MCG TABLET PO (05:58)
[2022-02-02 06:00] VITALS: BP 195/82; PULSE 62; RESP 18; TEMP 36.7; O2SAT 99
[2022-02-02 06:00] LABS: Anion Gap 8 mmol/L (8-16); Chloride 107 mmol/L (98-107); Potassium 3.7 mmol/L (3.4-5.0); Sodium 138 mmol/L (137-145)
[2022-02-02 06:09] LABS: Anisocytosis 2+ (NORMAL); Hypochromasia 1+ (NORMAL); Microcytosis 2+ (NORMAL); Platelet Estimate Adequate (Adequate); Poikilocytosis 2+ (NORMAL)
[2022-02-02 06:10] LABS: Ovalocytes 1+ (NORMAL); Schistocytes None Seen (NORMAL)
[2022-02-02] MEDS: ACETAMINOPHEN 500 MG TABLET 1000 MG PO ×3 (07:45→23:25)
[2022-02-02] MEDS: SPIRONOLACTONE 50 MG TABLET PO (07:46)
[2022-02-02] MEDS: cefTRIAXone 2 GM in SODIUM CHLORIDE 0.9% IV 100 ML IVPB (07:46)
[2022-02-02] MEDS: carvediloL 6.25 MG TABLET PO (07:47)
[2022-02-02] MEDS: ASPIRIN 81 MG CHEWABLE TABLET PO (07:47)
[2022-02-02] MEDS: FAMOTIDINE 20 MG/2 ML VIAL IV PUSH ×2 (07:47→20:35)
[2022-02-02] MEDS: hydrALAZINE HCL 25 MG TABLET PO (07:47)
[2022-02-02] MEDS: PANTOPRAZOLE 40 MG TABLET PO (07:47)
[2022-02-02] MEDS: GABAPENTIN 400 MG CAPSULE PO (07:48)
[2022-02-02] MEDS: hydrALAZINE HCL 20 MG/ML VIAL 10 MG IV PUSH (07:48)
[2022-02-02] MEDS: SILVERGEL (ELTA) 45 ML 1 APPLIC TOPICAL (07:48)
[2022-02-02 09:00] LABS: Glucose Point of Care 75 mg/dl (65-105)
[2022-02-02 10:32] VITALS: BP 143/68
--- NOTE | 2022-02-02 11:46 | WPDGIPROGNO ---
Progress Note: A&P Assessment and Plan (1) Rectal bleeding: Code(s): K62.5 - Hemorrhage of anus and rectum Status: Acute Assessment and Plan: Rectal bleeding attributed to hemorrhoids. Colonoscopy yesterday revealed no other lesions. High-fiber diet advised. Anusol or preparation H as needed. (2) Right below-knee amputee: Code(s): Z89.511 - Acquired absence of right leg below knee Status: Acute (3) Cirrhosis: Code(s): K74.60 - Unspecified cirrhosis of liver Status: Acute Assessment and Plan: Imaging studies reveal underlying cirrhosis. This felt to be secondary to MENDEZ. Patient should continue follow-up [facility] where he is established patient. 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 Currently followed by Oncology at [facility]. Likely this contributes to his abdominal pain that has been present since 2019 when this was diagnosed. Oncology follow-up advised. (5) Diarrhea: Code(s): R19.7 - Diarrhea, unspecified Status: Acute Assessment and Plan: Diarrhea appears to occur intermittently. I suspect irritable bowel syndrome. Adding fiber to his diet may be of some benefit. Outpatient follow-up with his established GI service advised. Subjective Date/time seen: 02/02/22 11:46 Patient alert this morning. Less diarrhea. No more bleeding. Notes he has chronic abdominal pain has been present since 2019. Review of Systems Review of Systems: Review of systems noncontributory. Exam Narrative: Physical exam reveals patient be alert she he is afebrile. Lungs are clear. Heart without murmur. Abdomen is soft somewhat obese. No localized tenderness appreciated. Objective Data Vital Signs Vital Signs: Vital Signs - 24 hr 02/01/22 13:18 02/01/22 14:20 02/01/22 14:30 Temperature 97.4 F L Pulse Rate 55 L 61 60 Respiratory Rate 18 18 16 Blood Pressure 177/82 H 176/98 H 183/94 H Pulse Oximetry 100 98 97 Oxygen Delivery Room Air Room Air Room Air 02/01/22 14:40 02/01/22 14:56 02/01/22 15:15 Temperature 98.2 F Pulse Rate 59 L 58 L 58 L Respiratory Rate 15 16 18 Blood Pressure 165/102 H 172/89 H 160/70 H Pulse Oximetry 97 99 99 Oxygen Delivery Room Air Room Air 02/01/22 15:30 02/01/22 16:00 02/01/22 17:00 Temperature 97.8 F 97.6 F 97.5 F L Pulse Rate 57 L 61 66 Respiratory Rate 16 18 16 Blood Pressure 186/86 H 186/87 H 173/96 H Pulse Oximetry 98 99 98 Oxygen Delivery 02/01/22 20:00 02/01/22 22:00 02/02/22 06:00 Temperature 97.2 F L 98.0 F Pulse Rate 61 62 Respiratory Rate 16 18 Blood Pressure 167/88 H 195/82 H Pulse Oximetry 99 99 Oxygen Delivery Room Air 02/02/22 10:32 Temperature Pulse Rate Respiratory Rate Blood Pressure 143/68 H Pulse Oximetry Oxygen Delivery Intake/Output Intake/Output: Intake & Output 01/30/22 01/31/22 02/01/22 02/02/22 23:59 23:59 23:59 23:59 Intake Total 4016 5400 870 480 Output Total 600 5800 1100 800 Balance 3416 -400 -230 -320 Meds/Results Medications: Active Medications Generic Name Dose Route Start Last Admin Trade Name Freq PRN Reason Stop Dose Admin Acetaminophen 1,000 mg 01/30/22 13:55 02/02/22 07:45 Acetaminophen 500 Mg Tablet PO 1,000 mg Q6H PRN Administration Pain or Fever Aspirin 81 mg 01/31/22 09:00 02/02/22 07:47 Aspirin 81 Mg Chewable Tablet PO 81 mg DAILY MARY Administration Carvedilol 6.25 mg 01/31/22 09:00 02/02/22 07:47 Carvedilol 6.25 Mg Tablet PO 6.25 mg DAILY MARY Administration Famotidine 20 mg 01/29/22 21:00 02/02/22 07:47 Famotidine 20 Mg/2 Ml Vial IV PUSH 20 mg Q12HR MARY Administration Ferrous Sulfate 324 mg 01/31/22 08:00 02/01/22 17:12 Ferrous Sulfate 324 Mg Tablet PO 324 mg IRINA
[2022-02-02 12:12] LABS: Glucose Point of Care 94 mg/dl (65-105)
--- NOTE | 2022-02-02 12:51 | PM.IMPN ---
Progress Note: A&P Assessment and Plan (1) Neuroendocrine cancer: Code(s): C7A.8 - Other malignant neuroendocrine tumors Status: Acute Assessment and Plan: -the patient stated that his insurance ran out and will need help with assistance with medical care. education program coordinator has been consulted. -the patient stated that he has not seen the oncologist and many months. Dr. Puri had been consulted and agrees to see the patient. -the patient is not sure if he is still receiving treatment. The patient is a DNR. 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 presented emergency department with complaint diarrhea for 2 weeks it and on 01/29 patient noticed red bright blood in stool and on toilet paper, to further evaluate cause of patient diarrhea stool culture is pending and will continue to monitor suspect patient may have hemorrhoids, seen by GI recommending to follow-up on stool culture, stool cultures are pending, remained clinically stable on 02/01 patient had colonoscopy it showed several internal hemorrhoid and GI suspect most likely cause of his bleeding, states frequency of bowel movement has improved compared to when he arrived, however today patient complains abdominal pain, no nausea or vomiting fever or chills, to further evaluate will do a small bowel follow and further recommendation to follow, patient with history of neuroendocrine malignancy is white counts are trending, patient will be seen by Dr. Puri cement and concrete plant worker Oncologist and further recommendation to follow. (2) Diarrhea: Code(s): R19.7 - Diarrhea, unspecified Status: Acute Assessment and Plan: -stool specimens have been sent. Stool for occult blood -the patient stated he is been having bright red blood in his stools. (3) HTN (hypertension) with goal to be determined: Code(s): I10 - Essential (primary) hypertension Status: Acute Assessment and Plan: -hydralazine (4) UTI (urinary tract infection): Code(s): N39.0 - Urinary tract infection, site not specified Status: Acute Assessment and Plan: -start with Rocephin. -tailor antibiotics to blood and urine cultures (5) GI bleed: Code(s): K92.2 - Gastrointestinal hemorrhage, unspecified Status: Acute Assessment and Plan: -IV Pepcid -H&H every 6 hours -stool for occult blood. -GI has been consulted. -continue with IV fluids Plan The patient has a chronic ulcerated area to the left foot approximally half dollar size. Wound Care has been consulted. The patient has a right [id number] amputation and uses a prosthesis Subjective Date/time seen: 02/02/22 12:51 02/02/2022 interval history: patient with history of: ganglioma in multiple sites including in his abdomen.? presented emergency department with complaint diarrhea for 2 weeks it and on 01/29 patient noticed red bright blood in stool and on toilet paper, to further evaluate cause of patient diarrhea stool culture is pending and will continue to monitor suspect patient may have hemorrhoids, seen by GI recommending to follow-up on stool culture, stool cultures are pending, remained clinically stable on 02/01 patient had colonoscopy it showed several internal hemorrhoid and GI suspect most likely cause of his bleeding, states frequency of bowel movement has improved compared to when he arrived, however today patient complains abdominal pain, no nausea or vomiting fever or chills, to further evaluate will do a small bowel follow and further recommendation to follow, patient with history of neuroendocrine malignancy is white counts are trending, patient will be seen by Dr. Puri cement and concrete plant worker Oncologist and further recommendation to follow. Review of Systems Review of Systems: All systems reviewed & are unremarkable except as noted in HPI and below Exam Narrative: moderately obese Patient is comfo
[2022-02-02 15:00] LABS: Glucose Point of Care 82 mg/dl (65-105)
[2022-02-02] MEDS: FERROUS SULFATE 324 MG TABLET PO (16:05)
[2022-02-02 17:08] LABS: Glucose Point of Care 94 mg/dl (65-105)
--- NOTE | 2022-02-02 18:00 | PDONCCN ---
HPI - Date of Consult Date/Time: 02/02/22 18:01 Requesting Physician: Marsha Carbone DO Primary Care Provider: Berenice Weldon, HOUSEKEEPING ASSOCIATE - Consult Narrative Reason for consult: Metastatic neuroendocrine tumor Narrative: Gino Murphy is a 56 year old male with history of metastatic neuroendocrine tumor of GI origin with extensive abdominal disease and liver metastasis. She was seen by Dr. Collins last in September 2021. He was getting octreotide injection on a monthly basis but lost his insurance 4 months ago and received loss injection at that time. He was also on everolimus but that was discontinued due to anemia. It was restarted again in September 2021 but then he lost his insurance. Patient came into the hospital with abdominal bloating and pain with diarrhea. He was also complaining of bright red stool in his diarrhea. He denies any nausea vomiting and fever. CT abdomen was performed that showed right-sided pulmonary nodule as well as mesenteric masses and abdominal lymphadenopathy. He also has liver cirrhosis with portal hypertension and ascites. Patient had colonoscopy done on February 01 that showed internal hemorrhoids appear to have been etiology for recent blood in the stool. Upper GI and small bowel x-ray came back unremarkable. He continues to have abdominal bloating and diarrhea . Review of Systems - Review of Systems All systems reviewed & are unremarkable except as noted in HPI and bel - Neurologic Reports system reviewed and no additional complaints, except as documented, Reports hearing normal [facility] Medical History: Medical History (Last Reviewed 02/01/22 @ 13:35 by Richardson Nayak MD) HTN (hypertension) with goal to be determined Neuroendocrine cancer Pancytopenia Right below-knee amputee Surgical History: Surgical History (Last Reviewed 02/01/22 @ 13:35 by Richardson Nayak MD) H/O hernia repair H/O shoulder surgery Family History: Family History (Last Reviewed 02/01/22 @ 13:35 by Richardson Nayak MD) Mother Diabetes mellitus Cancer Father Diabetes mellitus Heart disease - Social History Social History: Social History (Last Reviewed 02/01/22 @ 13:35 by Richardson Nayak MD) Alcohol Use: Alcohol intake: never Substance Use: Substance use: never Others: Spiritual care concerns: No Smoking Status: Smoking status: Never smoker Second hand tobacco smoke exposure: Yes Social Determinants of Health: Has the Lack of Transportation Kept You From Medical Appointments or From Getting Medications?: Yes Within the Past 12 Months, Were You Worried Whether Your Food Would Run Out Before You Got Money to Buy More?: Often True What is Your Housing Situation Today?: I Have Housing Are You Worried That in the Next 2 Months, You May Not Have Your Own Housing to Live In?: No Do You Have Trouble Paying Your Heating Or Electricity Bill?: No Do You Have Trouble Paying For Medicines?: Yes Are You Currently Unemployed and Looking for Work?: No Highest Level of Education Completed: High School Diploma/GED Do You Have Trouble With Childcare or the Care of a Family Member?: No Exam - Vital Signs Vital Signs - 24 hr 02/01/22 20:00 02/01/22 22:00 02/02/22 06:00 Temperature 36.2 C L 36.7 C Pulse Rate 61 62 Respiratory Rate 16 18 Blood Pressure 167/88 H 195/82 H Pulse Oximetry 99 99 Oxygen Delivery Room Air 02/02/22 10:32 Temperature Pulse Rate Respiratory Rate Blood Pressure 143/68 H Pulse Oximetry Oxygen Delivery - Exam HEENT: EOMI, PERRLA Neck: supple. No: JVD Lungs: clear to auscultation, normal air movement Heart: no murmurs, gallops, or rubs, regular rhythm, regular rate Abdomen: abdomen soft, normal bowel sounds, distended Extremities: normal pulses Integumentary: no abnormalities Psychological: mental status NL, mood NL - Lab Results Laboratory Last Value
[2022-02-02] MEDS: PRAMIPEXOLE 0.125 MG TABLET PO (20:35)
[2022-02-02] MEDS: ZOLPIDEM TARTRATE (*CRX) 5 MG TABLET PO (20:35)
[2022-02-02] MEDS: hydrOXYzine pamoate 25 MG CAPSULE PO (20:36)
[2022-02-02 20:43] VITALS: BP 178/65; PULSE 60; RESP 16; TEMP 36.8; O2SAT 98
[2022-02-02 20:43] LABS: Folic Acid 3.9 ng/mL (2.76->20)
[2022-02-02 21:13] LABS: Glucose Point of Care 82 mg/dl (65-105)
[2022-02-02 21:46] LABS: Iron 66 ug/dL (49-181)
[2022-02-02 21:55] LABS: Percent Iron Saturation 19 % (20-50)
[2022-02-03] VITALS (7 sets, daily range): BP systolic 155–185; BP diastolic 73–96; PULSE 60–80; RESP 14–16; TEMP 36.3–36.8; O2SAT 95–99
[2022-02-03] MEDS: hydrALAZINE HCL 20 MG/ML VIAL 10 MG IV PUSH ×2 (03:20→22:05)
[2022-02-03] MEDS: hydrOXYzine HCL 25 MG TABLET PO ×3 (03:23→22:06)
[2022-02-03 06:16] LABS: Immature Granulocyte Absolute 0.01 K/mm3 (0.00-0.031); Immature Granulocyte Percent A 0.5 % (0-0.5); Immature Platelet Fraction Pct 3.6 % (0.9-11.2); Lymphocytes Absolute Auto 0.68 K/mm3 (0.9-3.2); Lymphocytes Percent Auto 33.8 % (18.3-44.2); Mean Corpuscular Hemoglobin 26.8 pg (26-34); Mean Corpuscular Volume 83.6 fl (80-100); Mean Platelet Volume 10.5 fl (7.4-10.4); Monocytes Absolute Auto 0.2 K/mm3 (0.1-0.6); Monocytes Percent Auto 11.4 % (2.6-8.5); Neutrophils Percent Auto 51.3 % (45.5-73.1); Platelet Count Result 94 k/mm3 (150-375); Red Blood Count 2.99 M/mm3 (4.6-6.20)
[2022-02-03 06:28] LABS: Alanine Aminotransferase 13 U/L (6-50); Albumin Level 3.5 g/dL (3.5-5.1); Alkaline Phosphatase 117 U/L (38-126); Anion Gap 7 mmol/L (8-16); Aspartate Amino Transferase 32 U/L (17-59); Bilirubin,Total 1.2 mg/dL (0.2-1.3); Blood Urea Nitrogen 11 mg/dL (9-20); Calcium 8.4 mg/dL (8.4-10.2); Carbon Dioxide 23 mmol/L (22-30); Chloride 104 mmol/L (98-107); Estimated CRCL calculation 85 ml/min; Estimated Glomerular Filt Rate 57; Glucose 76 mg/dL (65-110); Magnesium 1.6 mg/dL (1.6-2.3); Potassium 3.5 mmol/L (3.4-5.0); Sodium 134 mmol/L (137-145)
--- NOTE | 2022-02-03 06:43 | PC.NURSE ---
Pt is alert and oriented and has refused his bed alarm. He stated that he does not need it and that he is able to get onto the bedside commode without help. He stated that he was fine, when I attempted to explain to patient reason for bed alarm he stated that he does not need it that he was not going to fall and was fine transferring himself. Explained to him that it was for his safety but he stated that he does not need it and to leave it off.
[2022-02-03] MEDS: LEVOTHYROXINE SODIUM 112 MCG TABLET PO (06:46)
[2022-02-03 07:25] LABS: Anisocytosis 1+ (NORMAL); Hypochromasia 1+ (NORMAL); Ovalocytes 1+ (NORMAL); Platelet Estimate Decreased (Adequate)
[2022-02-03 07:26] LABS: Schistocytes None Seen (NORMAL)
--- NOTE | 2022-02-03 07:48 | PC.NURSE ---
Received pt in bed, A/O x3 .Bed alarm on pt with BSC at BS Pt got out of bed several times without using call light to ask for help. Bed alarm goes off, staff runs to room, pt in process getting to BSC - pivot from edge of bed to comode. Or pt already sitting on BSC Pt also set off alarm when pt moving self in bed, sitting up. Pt wants the bed alarm off. Pt states he is safe/ stable with transferring self to the bed. Pt has R BKA and Left foot with drsg wrapped in kerlix . Pt states that he has never fallen due to his BKA. Explained safety issues, fall precautions set in place per protocol. Turned off bed alarm per pt's refusal to have on. Charge nurse aware and issue brought up in huddle this am at 0700 with al staff .
--- NOTE | 2022-02-03 07:51 | WPDGIPROGNO ---
Progress Note: A&P Assessment and Plan (1) Neuroendocrine cancer: Code(s): C7A.8 - Other malignant neuroendocrine tumors Status: Acute Assessment and Plan: Patient with metastatic neuroendocrine tumor. This likely contributes to his pain. Plan for Oncology follow-up. Upper GI and small-bowel follow-through performed yesterday was unremarkable. (2) Cirrhosis: Code(s): K74.60 - Unspecified cirrhosis of liver Status: Acute Assessment and Plan: Patient has cirrhosis of the liver. Likely this contributes to his anemia. No specific therapy at this time. Continue to monitor. (3) Right below-knee amputee: Code(s): Z89.511 - Acquired absence of right leg below knee Status: Acute Subjective Date/time seen: 02/03/22 07:51 Patient continues to report discomfort in his upper mid abdomen. He has had this pain since 2019. No significant diarrhea present. No additional bleeding. Review of Systems Review of Systems: Review of systems noncontributory. Exam Narrative: Physical exam reveals patient be alert. Comfortable at rest. HEENT exam reveals no icterus. Lungs are clear. Abdomen is obese. Soft no localized tenderness. Right amputation noted. Objective Data Vital Signs Vital Signs: Vital Signs - 24 hr 02/02/22 10:32 02/02/22 20:43 02/03/22 03:12 Temperature 98.2 F Pulse Rate 60 64 Respiratory Rate 16 16 Blood Pressure 143/68 H 178/65 H 185/87 H Pulse Oximetry 98 97 02/03/22 05:00 Temperature 98.2 F Pulse Rate 73 Respiratory Rate 16 Blood Pressure 181/92 H Pulse Oximetry 99 Intake/Output Intake/Output: Intake & Output 01/31/22 02/01/22 02/02/22 02/03/22 23:59 23:59 23:59 23:59 Intake Total 5400 870 1150 400 Output Total 5800 1100 1650 300 Balance -400 -230 -500 100 Meds/Results Medications: Active Medications Generic Name Dose Route Start Last Admin Trade Name Freq PRN Reason Stop Dose Admin Acetaminophen 1,000 mg 01/30/22 13:55 02/02/22 23:25 Acetaminophen 500 Mg Tablet PO 1,000 mg Q6H PRN Administration Pain or Fever Aspirin 81 mg 01/31/22 09:00 02/02/22 07:47 Aspirin 81 Mg Chewable Tablet PO 81 mg DAILY MARY Administration Carvedilol 6.25 mg 01/31/22 09:00 02/02/22 07:47 Carvedilol 6.25 Mg Tablet PO 6.25 mg DAILY MARY Administration Famotidine 20 mg 01/29/22 21:00 02/02/22 20:35 Famotidine 20 Mg/2 Ml Vial IV PUSH 20 mg Q12HR MARY Administration Ferrous Sulfate 324 mg 01/31/22 08:00 02/02/22 16:05 Ferrous Sulfate 324 Mg Tablet PO 324 mg DAILY@0800 MARY Administration Gabapentin 400 mg 01/31/22 09:00 02/02/22 07:48 Gabapentin 400 Mg Capsule PO 400 mg DAILY MARY Administration Glucose 15 gm 01/29/22 14:41 Glucose Oral Gel 15 Gm Of Glucse In 37.5 Gm Tube PO PRN PRN Hypoglycemia Protocol Hydralazine HCl 10 mg 01/29/22 18:10 02/03/22 03:20 Hydralazine Hcl 20 Mg/Ml Vial IV PUSH 10 mg Q8H PRN Administration Blood Pressure - High Hydralazine HCl 25 mg 01/31/22 09:00 02/02/22 07:47 Hydralazine Hcl 25 Mg Tablet PO 25 mg DAILY MARY Administration Hydroxyzine HCl 25 mg 01/30/22 16:16 02/03/22 03:23 Hydroxyzine Hcl 25 Mg Tablet PO 25 mg Q6H PRN Administration Anxiety Hydroxyzine Pamoate 25 mg 01/29/22 22:10 02/02/22 20:36 Hydroxyzine Pamoate 25 Mg Capsule PO 25 mg Q4H PRN Administration Itching Dextrose 1,000 mls @ 100 mls/hr 01/29/22 14:41 Dextrose 5% 1,000 Ml IVPB PRN PRN Hypoglycemia Protocol Ceftriaxone Sodium 2 gm/ 100 mls @ 200 mls/hr 01/30/22 09:00 02/02/22 08:46 Sodium Chloride IVPB Infused Q24H MARY Infusion Levothyroxine Sodium 112 mcg 01/31/22 06:30 02/03/22 06:46 Levothyroxine Sodium 112 Mcg Tablet PO 112 mcg DAILY@0630 MARY Administration Octreotide Acetate 100 mcg 02/03/22 09:00 Octreotide Acetate 100 Mcg/Ml Vial SUB-
[2022-02-03 08:38] LABS: Glucose Point of Care 70 mg/dl (65-105)
--- NOTE | 2022-02-03 09:06 | PM.IMPN ---
Progress Note: A&P Assessment and Plan (1) Neuroendocrine cancer: Code(s): C7A.8 - Other malignant neuroendocrine tumors Status: Acute Assessment and Plan: -the patient stated that his insurance ran out and will need help with assistance with medical care. hedis coordinator has been consulted. -the patient stated that he has not seen the oncologist and many months. Dr. Puri had been consulted and agrees to see the patient. -the patient is not sure if he is still receiving treatment. The patient is a DNR. 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 presented emergency department with complaint diarrhea for 2 weeks it and on 01/29 patient noticed red bright blood in stool and on toilet paper, to further evaluate cause of patient diarrhea stool culture is pending and will continue to monitor suspect patient may have hemorrhoids, seen by GI recommending to follow-up on stool culture, stool cultures are pending, remained clinically stable on 02/01 patient had colonoscopy it showed several internal hemorrhoid and GI suspect most likely cause of his bleeding, states frequency of bowel movement has improved compared to when he arrived, however today patient complains abdominal pain, no nausea or vomiting fever or chills, to further evaluate will do a small bowel follow and further recommendation to follow, patient with history of neuroendocrine malignancy is white counts are trending, patient will be seen by Dr. Puri boiler blower Oncologist and further recommendation to follow. started on octreotide injection htn: uncontrolled. will increase hydralazine to 25 mg po tid. (2) Diarrhea: Code(s): R19.7 - Diarrhea, unspecified Status: Acute Assessment and Plan: -stool specimens have been sent. Stool for occult blood -the patient stated he is been having bright red blood in his stools. colonoscopy: internal hemorrhodis (3) HTN (hypertension) with goal to be determined: Code(s): I10 - Essential (primary) hypertension Status: Acute Assessment and Plan: -hydralazine (4) UTI (urinary tract infection): Code(s): N39.0 - Urinary tract infection, site not specified Status: Acute Assessment and Plan: -start with Rocephin. -tailor antibiotics to blood and urine cultures (5) GI bleed: Code(s): K92.2 - Gastrointestinal hemorrhage, unspecified Status: Acute Assessment and Plan: -IV Pepcid -H&H every 6 hours -stool for occult blood. -GI has been consulted. -continue with IV fluids s/p colonscopy: internal hemorrhoids Plan The patient has a chronic ulcerated area to the left foot approximally half dollar size. Wound Care has been consulted. The patient has a right [id number] amputation and uses a prosthesis HTN: hydrlaazine, coreg. increase hydralazine. pancytopenai: likley due to undelrying icrrhosis and liver disease Subjective Date/time seen: 02/03/22 09:06 chart reivewed. still having diarrhea and abdominal cramps. no fever, chills. no blood in stool reported. Review of Systems Review of Systems: All systems reviewed & are unremarkable except as noted in HPI and below Exam Narrative: moderately obese Patient is comfortable, NAD HEENT: eyes are clear and none icteric LUNGS:CTA HEART: RR S1S2 ABD: BS+, Soft and nontender Lower extremities: no edema SKIN: nonjaundiced Neuro: grossly intact. Objective Data Vital Signs Vital Signs: Vital Signs - 24 hr 02/02/22 10:32 02/02/22 20:43 02/03/22 03:12 Temperature 98.2 F Pulse Rate 60 64 Respiratory Rate 16 16 Blood Pressure 143/68 H 178/65 H 185/87 H Pulse Oximetry 98 97 02/03/22 05:00 Temperature 98.2 F Pulse Rate 73 Respiratory Rate 16 Blood Pressure 181/92 H Pulse Oximetry 99 Intake/Output Intake/Output: Intake & Output 01/31/22 02/01/22 02/02/22 02/03/22 23:59 23:59 23:59 23:59
[2022-02-03] MEDS: GABAPENTIN 400 MG CAPSULE PO (09:13)
[2022-02-03] MEDS: FERROUS SULFATE 324 MG TABLET PO (09:13)
[2022-02-03] MEDS: SPIRONOLACTONE 50 MG TABLET PO (09:13)
[2022-02-03] MEDS: ASPIRIN 81 MG CHEWABLE TABLET PO (09:13)
[2022-02-03] MEDS: carvediloL 6.25 MG TABLET PO (09:14)
[2022-02-03] MEDS: FAMOTIDINE 20 MG/2 ML VIAL IV PUSH ×2 (09:15→21:46)
[2022-02-03] MEDS: cefTRIAXone 2 GM in SODIUM CHLORIDE 0.9% IV 100 ML 200 ML IVPB (09:15)
[2022-02-03] MEDS: hydrALAZINE HCL 25 MG TABLET PO ×3 (09:16→18:22)
[2022-02-03] MEDS: PANTOPRAZOLE 40 MG TABLET PO (09:16)
[2022-02-03] MEDS: SILVERGEL (ELTA) 45 ML 1 APPLIC TOPICAL (09:16)
[2022-02-03] MEDS: OCTREOTIDE ACETATE 100 MCG/ML VIAL SUB-Q ×3 (09:17→18:22)
[2022-02-03] MEDS: ACETAMINOPHEN 500 MG TABLET 1000 MG PO ×2 (09:23→21:54)
[2022-02-03 12:30] LABS: Glucose Point of Care 103 mg/dl (65-105)
[2022-02-03 17:23] LABS: Glucose Point of Care 107 mg/dl (65-105)
[2022-02-03] MEDS: PRAMIPEXOLE 0.125 MG TABLET PO (21:46)
[2022-02-03 21:49] LABS: Glucose Point of Care 122 mg/dl (65-105)
[2022-02-03] MEDS: ZOLPIDEM TARTRATE (*CRX) 5 MG TABLET PO (21:55)
[2022-02-04 05:51] LABS: Eosinophils Absolute Auto 0.1 K/mm3 (0-0.3); Eosinophils Percent Auto 2.4 % (0-4.4); Hematocrit 27.2 % (42.0-52.0); Hemoglobin 8.5 g/dL (14.0-18.0); Immature Granulocyte Absolute 0.02 K/mm3 (0.00-0.031); Immature Platelet Fraction Pct 4.3 % (0.9-11.2); Lymphocytes Absolute Auto 0.77 K/mm3 (0.9-3.2); Mean Corpuscular HGB Conc 31.3 g/dl (32-36); Mean Corpuscular Hemoglobin 26.2 pg (26-34); Mean Platelet Volume 11.3 fl (7.4-10.4); Monocytes Absolute Auto 0.2 K/mm3 (0.1-0.6); Monocytes Percent Auto 11.5 % (2.6-8.5); Neutrophils Percent Auto 47.1 % (45.5-73.1); Platelet Count Result 100 k/mm3 (150-375); Red Blood Count 3.24 M/mm3 (4.6-6.20); Red Cell Distribution Width 16.8 % (11.5-14.5); White Blood Count 2.1 K/mm3 (4.5-10.0)
[2022-02-04] MEDS: ACETAMINOPHEN 500 MG TABLET 1000 MG PO (05:55)
[2022-02-04] MEDS: hydrOXYzine HCL 25 MG TABLET PO (05:55)
[2022-02-04] MEDS: LEVOTHYROXINE SODIUM 112 MCG TABLET PO (05:56)
[2022-02-04 05:57] LABS: Alanine Aminotransferase 15 U/L (6-50); Albumin Level 3.8 g/dL (3.5-5.1); Alkaline Phosphatase 120 U/L (38-126); Anion Gap 8 mmol/L (8-16); Aspartate Amino Transferase 32 U/L (17-59); Bilirubin,Total 1.3 mg/dL (0.2-1.3); Blood Urea Nitrogen 10 mg/dL (9-20); Calcium 8.7 mg/dL (8.4-10.2); Carbon Dioxide 23 mmol/L (22-30); Chloride 106 mmol/L (98-107); Estimated CRCL calculation 79 ml/min; Estimated Glomerular Filt Rate 52; Glucose 96 mg/dL (65-110); Magnesium 1.7 mg/dL (1.6-2.3); Potassium 3.8 mmol/L (3.4-5.0); Sodium 137 mmol/L (137-145)
[2022-02-04 06:15] VITALS: BP 174/94; PULSE 66; RESP 16; TEMP 36.4; O2SAT 99
[2022-02-04 07:52] LABS: Anisocytosis 1+ (NORMAL); Ovalocytes 1+ (NORMAL); Platelet Estimate Decreased (Adequate)
[2022-02-04 07:53] LABS: Schistocytes None Seen (NORMAL)
[2022-02-04] MEDS: PANTOPRAZOLE 40 MG TABLET PO (09:03)
[2022-02-04] MEDS: SPIRONOLACTONE 50 MG TABLET PO (09:03)
[2022-02-04] MEDS: GABAPENTIN 400 MG CAPSULE PO (09:03)
[2022-02-04] MEDS: ASPIRIN 81 MG CHEWABLE TABLET PO (09:03)
[2022-02-04 09:04] VITALS: PULSE 66
[2022-02-04] MEDS: FERROUS SULFATE 324 MG TABLET PO (09:04)
[2022-02-04] MEDS: hydrALAZINE HCL 50 MG TABLET PO ×3 (09:04→16:21)
[2022-02-04] MEDS: FAMOTIDINE 20 MG/2 ML VIAL IV PUSH ×2 (09:04→21:43)
[2022-02-04] MEDS: carvediloL 6.25 MG TABLET PO (09:04)
[2022-02-04] MEDS: OCTREOTIDE ACETATE 100 MCG/ML VIAL SUB-Q ×2 (09:07→12:02)
[2022-02-04] MEDS: SILVERGEL (ELTA) 45 ML 1 APPLIC TOPICAL (09:07)
[2022-02-04 09:18] LABS: Glucose Point of Care 88 mg/dl (65-105)
[2022-02-04 12:17] LABS: Glucose Point of Care 92 mg/dl (65-105)
[2022-02-04] MEDS: HYDROcodone/acetaminophen (*CRX) 5-325 MG TABLET 1 TAB PO ×2 (12:50→21:54)
[2022-02-04] MEDS: DICYCLOMINE HCL 10 MG CAPSULE PO (13:55)
--- NOTE | 2022-02-04 14:37 | PM.IMPN ---
Progress Note: A&P Assessment and Plan (1) Neuroendocrine cancer: Code(s): C7A.8 - Other malignant neuroendocrine tumors Status: Acute Assessment and Plan: -the patient stated that his insurance ran out and will need help with assistance with medical care. digital asset coordinator has been consulted. -the patient stated that he has not seen the oncologist and many months. Dr. Puri had been consulted and agrees to see the patient. -the patient is not sure if he is still receiving treatment. The patient is a DNR. 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 presented emergency department with complaint diarrhea for 2 weeks it and on 01/29 patient noticed red bright blood in stool and on toilet paper, to further evaluate cause of patient diarrhea stool culture is pending and will continue to monitor suspect patient may have hemorrhoids, seen by GI recommending to follow-up on stool culture, stool cultures are pending, remained clinically stable on 02/01 patient had colonoscopy it showed several internal hemorrhoid and GI suspect most likely cause of his bleeding, states frequency of bowel movement has improved compared to when he arrived, however today patient complains abdominal pain, no nausea or vomiting fever or chills, to further evaluate will do a small bowel follow and further recommendation to follow, patient with history of neuroendocrine malignancy is white counts are trending, patient will be seen by Dr. Puri sports teacher Oncologist and further recommendation to follow. started on octreotide injection htn: uncontrolled. adjust hydralazine dose (2) Diarrhea: Code(s): R19.7 - Diarrhea, unspecified Status: Acute Assessment and Plan: -stool specimens have been sent. Stool for occult blood -the patient stated he is been having bright red blood in his stools. colonoscopy: internal hemorrhodis (3) HTN (hypertension) with goal to be determined: Code(s): I10 - Essential (primary) hypertension Status: Acute Assessment and Plan: -hydralazine (4) UTI (urinary tract infection): Code(s): N39.0 - Urinary tract infection, site not specified Status: Acute Assessment and Plan: -start with Rocephin. -tailor antibiotics to blood and urine cultures Stop antibiotics ceftriaxone as he completed the course of treatment urine cultures been negative (5) GI bleed: Code(s): K92.2 - Gastrointestinal hemorrhage, unspecified Status: Acute Assessment and Plan: -IV Pepcid -H&H every 6 hours -stool for occult blood. -GI has been consulted. -continue with IV fluids s/p colonscopy: internal hemorrhoids Plan The patient has a chronic ulcerated area to the left foot approximally half dollar size. Wound Care has been consulted. The patient has a right [id number] amputation and uses a prosthesis HTN: hydrlaazine, coreg. increase hydralazine. pancytopenai: likley due to undelrying icrrhosis and liver disease Discussed with care coordination. Vicky to get back to his oncologist to get octreotide and injection shot long-acting. Temporarily continue on octreotide t.i.d. injections year which is cheaper as an outpatient as well. This option was given and provided to the patient until he gets back to his oncologist. Will try Bentyl and hydrocodone for pain control for today and monitor his diarrhea a might increase his octreotide does to higher dose to get response Subjective Date/time seen: 02/04/22 14:37 Interval history: he continues to have diarrhea and abdominal cramps. Discussed option with short acting octreotide for the time being until he can get back to his oncologist for depart shock. He is out of insurance Review of Systems Review of Systems: All systems reviewed & are unremarkable except as noted in HPI and below Exam Narrative: moderately obese Patient is comfortable,
[2022-02-04 15:15] VITALS: BP 151/65; PULSE 61; RESP 18; TEMP 36.6; O2SAT 98
[2022-02-04] MEDS: OCTREOTIDE ACETATE 100 MCG/ML VIAL 200 MCG SUB-Q (16:21)
[2022-02-04 21:41] VITALS: BP 169/84; PULSE 58; RESP 16; TEMP 36.8; O2SAT 99
[2022-02-04] MEDS: ZOLPIDEM TARTRATE (*CRX) 5 MG TABLET PO (21:43)
[2022-02-04] MEDS: PRAMIPEXOLE 0.125 MG TABLET PO (21:43)
[2022-02-04] MEDS: hydrALAZINE HCL 20 MG/ML VIAL 10 MG IV PUSH (21:47)
[2022-02-05] VITALS (7 sets, daily range): BP systolic 139–176; BP diastolic 69–89; PULSE 58–82; RESP 16–18; TEMP 36.6–36.8; O2SAT 98–100
[2022-02-05] MEDS: DICYCLOMINE HCL 10 MG CAPSULE PO (01:35)
[2022-02-05 06:01] LABS: Eosinophils Percent Auto 1.9 % (0-4.4); Hematocrit 27.4 % (42.0-52.0); Hemoglobin 8.7 g/dL (14.0-18.0); Immature Platelet Fraction Pct 4.5 % (0.9-11.2); Lymphocytes Absolute Auto 0.76 K/mm3 (0.9-3.2); Lymphocytes Percent Auto 36.7 % (18.3-44.2); Mean Corpuscular HGB Conc 31.8 g/dl (32-36); Mean Corpuscular Hemoglobin 26.4 pg (26-34); Mean Corpuscular Volume 83.3 fl (80-100); Mean Platelet Volume 9.8 fl (7.4-10.4); Monocytes Absolute Auto 0.3 K/mm3 (0.1-0.6); Neutrophils Percent Auto 47.4 % (45.5-73.1); Platelet Count Result 97 k/mm3 (150-375); Red Blood Count 3.29 M/mm3 (4.6-6.20); White Blood Count 2.1 K/mm3 (4.5-10.0)
[2022-02-05 06:24] LABS: Alanine Aminotransferase 14 U/L (6-50); Albumin Level 3.6 g/dL (3.5-5.1); Alkaline Phosphatase 104 U/L (38-126); Anion Gap 7 mmol/L (8-16); Aspartate Amino Transferase 32 U/L (17-59); Bilirubin,Total 1.3 mg/dL (0.2-1.3); Blood Urea Nitrogen 10 mg/dL (9-20); Calcium 8.5 mg/dL (8.4-10.2); Carbon Dioxide 24 mmol/L (22-30); Chloride 102 mmol/L (98-107); Estimated CRCL calculation 85 ml/min; Estimated Glomerular Filt Rate 57; Glucose 88 mg/dL (65-110); Magnesium 1.6 mg/dL (1.6-2.3); Potassium 3.6 mmol/L (3.4-5.0); Sodium 133 mmol/L (137-145)
[2022-02-05] MEDS: LEVOTHYROXINE SODIUM 112 MCG TABLET PO (06:54)
[2022-02-05] MEDS: HYDROcodone/acetaminophen (*CRX) 5-325 MG TABLET 1 TAB PO ×2 (06:54→21:31)
[2022-02-05 07:36] LABS: Anisocytosis 2+ (NORMAL); Microcytosis 1+ (NORMAL); Platelet Estimate Decreased (Adequate)
[2022-02-05 07:37] LABS: Ovalocytes 2+ (NORMAL); Schistocytes None Seen (NORMAL)
[2022-02-05 08:46] LABS: Glucose Point of Care 77 mg/dl (65-105)
[2022-02-05] MEDS: FERROUS SULFATE 324 MG TABLET PO (09:09)
[2022-02-05] MEDS: hydrALAZINE HCL 50 MG TABLET PO ×3 (09:09→18:35)
[2022-02-05] MEDS: ASPIRIN 81 MG CHEWABLE TABLET PO (09:09)
[2022-02-05] MEDS: FAMOTIDINE 20 MG/2 ML VIAL IV PUSH ×2 (09:10→21:31)
[2022-02-05] MEDS: SPIRONOLACTONE 50 MG TABLET PO (09:10)
[2022-02-05] MEDS: carvediloL 6.25 MG TABLET PO (09:10)
[2022-02-05] MEDS: PANTOPRAZOLE 40 MG TABLET PO (09:10)
[2022-02-05] MEDS: GABAPENTIN 400 MG CAPSULE PO (09:10)
[2022-02-05] MEDS: OCTREOTIDE ACETATE 100 MCG/ML VIAL 200 MCG SUB-Q ×3 (09:10→18:35)
[2022-02-05] MEDS: SILVERGEL (ELTA) 45 ML 1 APPLIC TOPICAL (09:11)
--- NOTE | 2022-02-05 10:04 | PCNWS ---
Weekly nutritional screen. Patient is tolerating current High fiber diet with adequate intake at 75-100%. No weight loss reported. No nutritional needs at this time.
[2022-02-05 12:06] LABS: Glucose Point of Care 91 mg/dl (65-105)
--- NOTE | 2022-02-05 13:04 | PM.DS ---
DS: Admitting Diagnosis Discharge Date 02/05/2022 Admitting Diagnosis abdominal pain/diarrhea DS: Discharge Diagnosis Discharge Diagnosis (1) Neuroendocrine cancer: Code(s): C7A.8 - Other malignant neuroendocrine tumors Status: Acute (2) Diarrhea: Code(s): R19.7 - Diarrhea, unspecified Status: Acute (3) HTN (hypertension) with goal to be determined: Code(s): I10 - Essential (primary) hypertension Status: Acute (4) UTI (urinary tract infection): Code(s): N39.0 - Urinary tract infection, site not specified Status: Acute (5) GI bleed: Code(s): K92.2 - Gastrointestinal hemorrhage, unspecified Status: Acute DS: Summary Hospital Course Hospital Course: ?patient with history of:?ganglioma in multiple sites including in? his abdomen.? presented emergency department with complaint diarrhea for 2 weeks it and on 01/29? patient noticed red bright blood in stool and on toilet paper, to further evaluate cause of patient diarrhea stool culture was ordered and will continue to monitor suspect patient may have hemorrhoids. He was seen by GI who recommended to follow-up on stool culture,? stool cultures remain negative. Patient had colonoscopy on 02/01/2022 which showed several internal hemorrhoid and GI suspect most likely cause of his bleeding. Continued to have abdominal cramps and diarrhea since most likely related to his underlying history of neuroendocrine tumor. heme Onc was consulted and he was started on octreotide injection he was on long-acting monthly shot in the past but due to lack of insurance he has not been getting it. He was started on short-acting octreotide which is available in the hospital during the hospital stay with improvement. This given with as needed Bentyl. His hematochezia resolved. He was also hypertensive during the hospital stay and was treated with adjustment of his home medication. His primary oncologist was also contacted and suggested they have a Free program for him to get on with long-acting octreotide injection. he will be given short-acting altered 10 injection until he gets back to his oncologist for her to get into this program. Care coordination was involved with regard to this medication management. The patient has a chronic ulcerated area to the left foot approximally half dollar size.? Wound Care has been consulted. The patient has a right [id number]-[id number] amputation and uses a prosthesis Time Spent with Patient Time attestation: Total time spent providing and/or coordinating discharge services: 45 minutes Exam Narrative: moderately obese Patient is comfortable, NAD HEENT: eyes are clear and none icteric LUNGS:CTA HEART: RR S1S2 ABD: BS+, Soft and nontender Lower extremities: no edema SKIN: nonjaundiced Neuro: grossly intact. DS: Data Data Completed and Pending Labs on day of discharge: Labs from last 24 hours 02/05/22 02/05/22 02/05/22 11:45 08:44 05:24 WBC RBC Hgb Hct MCV MCH MCHC RDW Plt Count MPV Immature Gran % (Auto) Neut % (Auto) Lymph % (Auto) Dawes % (Auto) Eos % (Auto) Baso % (Auto) Lymph # (Auto) Dawes # (Auto) Eos # (Auto) Baso # (Auto) Abs Immat Gran (auto) Absolute Neuts (auto) Absolute Nucleated RBC Nucleated RBC % Platelet Estimate % Immature Plt Fraction Anisocytosis Microcytosis Ovalocytes Schistocytes Sodium 133 L Potassium 3.6 Chloride 102 Carbon Dioxide 24 Anion Gap 7 L BUN 10 Creatinine 1.30 Estim Creat Clear Calc 85 Estimated GFR 57 L Glucose 88 POC Capillary Glucose 91 77 Calcium 8.5 Magnesium 1.6 Total Bilirubin 1.3 AST 32 ALT 14 Alkaline Phosphatase 104 Total Protein 8.0 Albumin 3.6 02/05/22 05:24 WBC 2.1 L RBC 3.29 L Hgb 8.7 L Hct 27.4 L MCV 83.3 MCH 26.4 MCHC 31.8 L RDW 17.0 H Plt C
[2022-02-05 15:23] LABS: Glucose Point of Care 129 mg/dl (65-105)
[2022-02-05] MEDS: MECLIZINE HCL 25 MG TABLET PO (15:59)
--- NOTE | 2022-02-05 16:53 | PM.IMPN ---
Progress Note: A&P Assessment and Plan (1) Neuroendocrine cancer: Code(s): C7A.8 - Other malignant neuroendocrine tumors Status: Acute Assessment and Plan: -the patient stated that his insurance ran out and will need help with assistance with medical care. placement coordinator has been consulted. -the patient stated that he has not seen the oncologist and many months. Dr. Puri had been consulted and agrees to see the patient. -the patient is not sure if he is still receiving treatment. The patient is a DNR. 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 presented emergency department with complaint diarrhea for 2 weeks it and on 01/29 patient noticed red bright blood in stool and on toilet paper, to further evaluate cause of patient diarrhea stool culture is pending and will continue to monitor suspect patient may have hemorrhoids, seen by GI recommending to follow-up on stool culture, stool cultures are pending, remained clinically stable on 02/01 patient had colonoscopy it showed several internal hemorrhoid and GI suspect most likely cause of his bleeding, states frequency of bowel movement has improved compared to when he arrived, however today patient complains abdominal pain, no nausea or vomiting fever or chills, to further evaluate will do a small bowel follow and further recommendation to follow, patient with history of neuroendocrine malignancy is white counts are trending, patient will be seen by 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 started on octreotide injection htn: uncontrolled. adjust hydralazine dose (2) Diarrhea: Code(s): R19.7 - Diarrhea, unspecified Status: Acute Assessment and Plan: -stool specimens have been sent. Stool for occult blood -the patient stated he is been having bright red blood in his stools. colonoscopy: internal hemorrhodis (3) HTN (hypertension) with goal to be determined: Code(s): I10 - Essential (primary) hypertension Status: Acute Assessment and Plan: -hydralazine (4) UTI (urinary tract infection): Code(s): N39.0 - Urinary tract infection, site not specified Status: Acute Assessment and Plan: -start with Rocephin. -tailor antibiotics to blood and urine cultures Stop antibiotics ceftriaxone as he completed the course of treatment urine cultures been negative (5) GI bleed: Code(s): K92.2 - Gastrointestinal hemorrhage, unspecified Status: Acute Assessment and Plan: -IV Pepcid -H&H every 6 hours -stool for occult blood. -GI has been consulted. -continue with IV fluids s/p colonscopy: internal hemorrhoids Plan The patient has a chronic ulcerated area to the left foot approximally half dollar size. Wound Care has been consulted. The patient has a right nobag-tjj-luyc amputation and uses a prosthesis Dizziness: New onset severe. Will get CT head To rule out acute stroke. will also do MRI brain. attempt meclizine HTN: hydrlaazine, coreg. increase hydralazine. pancytopenai: likley due to undelrying icrrhosis and liver disease Discussed with care coordination. Vicky to get back to his oncologist to get octreotide and injection shot long-acting. Temporarily continue on octreotide t.i.d. injections year which is cheaper as an outpatient as well. This option was given and provided to the patient until he gets back to his oncologist. Bentyl and hydrocodone p.r.n.. Octreotide increased with improvement Subjective Date/time seen: 02/05/22 16:53 Interval history: patient continued to improve. Plan for discharge however started having dizziness. Discharge held in further evaluation being planned. Review of Systems Review of Systems: All systems reviewed & are unremarkable except as noted in HPI and below Exam Narrative: moderately obese Patient is comfortable, NAD HEENT: eyes are clear
[2022-02-05 17:59] LABS: Glucose Point of Care 107 mg/dl (65-105)
[2022-02-05] MEDS: PRAMIPEXOLE 0.125 MG TABLET PO (21:31)
[2022-02-05] MEDS: ZOLPIDEM TARTRATE (*CRX) 5 MG TABLET PO (21:31)
[2022-02-05 21:40] LABS: Glucose Point of Care 108 mg/dl (65-105)
[2022-02-06 05:18] LABS: Basophils Percent Auto 0.9 % (0.2-1.2); Eosinophils Percent Auto 1.3 % (0-4.4); Hematocrit 29.7 % (42.0-52.0); Hemoglobin 9.3 g/dL (14.0-18.0); Immature Granulocyte Absolute 0.02 K/mm3 (0.00-0.031); Immature Granulocyte Percent A 0.9 % (0-0.5); Immature Platelet Fraction Pct 4.2 % (0.9-11.2); Lymphocytes Absolute Auto 0.82 K/mm3 (0.9-3.2); Mean Corpuscular HGB Conc 31.3 g/dl (32-36); Mean Corpuscular Hemoglobin 26.3 pg (26-34); Mean Corpuscular Volume 83.9 fl (80-100); Mean Platelet Volume 9.8 fl (7.4-10.4); Monocytes Absolute Auto 0.2 K/mm3 (0.1-0.6); Monocytes Percent Auto 9.2 % (2.6-8.5); Neutrophils Absolute Auto 1.2 K/mm3 (1.3-6.7); Neutrophils Percent Auto 51.7 % (45.5-73.1); Platelet Count Result 96 k/mm3 (150-375); Red Blood Count 3.54 M/mm3 (4.6-6.20); Red Cell Distribution Width 17.2 % (11.5-14.5); White Blood Count 2.3 K/mm3 (4.5-10.0)
[2022-02-06] MEDS: LEVOTHYROXINE SODIUM 112 MCG TABLET PO (05:22)
[2022-02-06 05:30] LABS: Alanine Aminotransferase 15 U/L (6-50); Albumin Level 3.8 g/dL (3.5-5.1); Alkaline Phosphatase 118 U/L (38-126); Anion Gap 8 mmol/L (8-16); Aspartate Amino Transferase 32 U/L (17-59); Bilirubin,Total 1.9 mg/dL (0.2-1.3); Blood Urea Nitrogen 12 mg/dL (9-20); Calcium 8.8 mg/dL (8.4-10.2); Carbon Dioxide 24 mmol/L (22-30); Chloride 106 mmol/L (98-107); Estimated CRCL calculation 79 ml/min; Estimated Glomerular Filt Rate 52; Glucose 92 mg/dL (65-110); Magnesium 1.5 mg/dL (1.6-2.3); Potassium 3.9 mmol/L (3.4-5.0); Sodium 138 mmol/L (137-145)
[2022-02-06 05:48] VITALS: BP 161/69; PULSE 65; RESP 20; TEMP 36.5; O2SAT 99
[2022-02-06 08:28] LABS: Glucose Point of Care 84 mg/dl (65-105)
[2022-02-06] MEDS: MECLIZINE HCL 25 MG TABLET PO ×2 (09:28→17:58)
[2022-02-06 09:29] VITALS: PULSE 75
[2022-02-06] MEDS: FAMOTIDINE 20 MG/2 ML VIAL IV PUSH (09:29)
[2022-02-06] MEDS: hydrALAZINE HCL 50 MG TABLET PO ×3 (09:29→17:58)
[2022-02-06] MEDS: carvediloL 6.25 MG TABLET PO (09:29)
[2022-02-06] MEDS: PANTOPRAZOLE 40 MG TABLET PO (09:29)
[2022-02-06] MEDS: hydrOXYzine pamoate 25 MG CAPSULE PO (09:29)
[2022-02-06] MEDS: FERROUS SULFATE 324 MG TABLET PO (09:29)
[2022-02-06] MEDS: SPIRONOLACTONE 50 MG TABLET PO (09:37)
[2022-02-06] MEDS: GABAPENTIN 400 MG CAPSULE PO (09:38)
[2022-02-06] MEDS: ASPIRIN 81 MG CHEWABLE TABLET PO (09:38)
[2022-02-06] MEDS: SILVERGEL (ELTA) 45 ML 1 APPLIC TOPICAL (09:43)
[2022-02-06] MEDS: OCTREOTIDE ACETATE 100 MCG/ML VIAL 200 MCG SUB-Q ×3 (10:56→17:58)
--- NOTE | 2022-02-06 11:29 | PM.DS ---
DS: Admitting Diagnosis Discharge Date 02/06/2022 Admitting Diagnosis abdominal pain DS: Discharge Diagnosis Discharge Diagnosis (1) Neuroendocrine cancer: Code(s): C7A.8 - Other malignant neuroendocrine tumors Status: Acute (2) Diarrhea: Code(s): R19.7 - Diarrhea, unspecified Status: Acute (3) HTN (hypertension) with goal to be determined: Code(s): I10 - Essential (primary) hypertension Status: Acute (4) UTI (urinary tract infection): Code(s): N39.0 - Urinary tract infection, site not specified Status: Acute (5) GI bleed: Code(s): K92.2 - Gastrointestinal hemorrhage, unspecified Status: Acute DS: Summary Hospital Course Hospital Course: ?patient with 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 his abdomen.? presented emergency department with complaint diarrhea for 2 weeks it and on 01/29? patient noticed red bright blood in stool and on toilet paper, to further evaluate cause of patient diarrhea stool culture? was ordered and will continue to monitor suspect patient may have hemorrhoids.? He was seen by GI? who recommended to follow-up on stool culture,? stool cultures? remain negative.? Patient had colonoscopy on 02/01/2022 which showed several internal hemorrhoid and GI suspect most likely cause of his bleeding.? Continued to have abdominal cramps and diarrhea since most likely related to his underlying history of neuroendocrine tumor. ? heme Onc was consulted and he was started on octreotide injection he was on long-acting monthly shot in the past but due to lack of insurance he has not been getting it.? He was started on short-acting octreotide which is available in the hospital during the hospital stay with improvement.? This given with as needed Bentyl.? His hematochezia resolved.? He was also hypertensive during the hospital stay and was treated with adjustment of his home medication. His primary oncologist was also contacted and suggested they have a ? Free program for him to get on with long-acting octreotide injection. he? will be given short-acting altered 10 injection until he gets back to his oncologist for her to get into this program.? Care coordination was involved with regard to this medication management. The patient has a chronic ulcerated area to the left foot approximally half dollar size.? Wound Care has been consulted. The patient has a right gssrv-kyo-wyri amputation and uses a prosthesis dizziness: acute onset; 02/05/2022. ct head was negative. mri brain was also done which came back negative. his symptoms improved and resolved spontaneously. meclizine was tried. Time Spent with Patient Time attestation: Total time spent providing and/or coordinating discharge services: 45 mins Exam Narrative: moderately obese Patient is comfortable, NAD HEENT: eyes are clear and none icteric LUNGS:CTA HEART: RR S1S2 ABD: BS+, Soft and nontender Lower extremities: no edema SKIN: nonjaundiced Neuro: grossly intact. DS: Data Data Completed and Pending Completed studies during hospitalization: colonoscopy: Internal hemorrhoids appear to have etiology of recent blood in stool Labs on day of discharge: Labs from last 24 hours 02/06/22 02/06/22 02/06/22 08:25 04:58 04:58 WBC 2.3 L RBC 3.54 L Hgb 9.3 L Hct 29.7 L MCV 83.9 MCH 26.3 MCHC 31.3 L RDW 17.2 H Plt Count 96 L MPV 9.8 Immature Gran % (Auto) 0.9 H Neut % (Auto) 51.7 Lymph % (Auto) 36.0 Ramsey % (Auto) 9.2 H Eos % (Auto) 1.3 Baso % (Auto) 0.9 Lymph # (Auto) 0.82 L Ramsey # (Auto) 0.2 Eos # (Auto) 0.0 Baso # (Auto) 0.0 Abs Immat Gran (auto) 0.02 Absolute Neuts (auto) 1.2 L Absolute Nucleated RBC 0.0 Nucleated RBC % 0.0 % Immature Plt Fraction 4.2 Sodium 138 Potassium 3.9 Chloride 106 Carbon Dioxide 24 Anion Gap 8 BUN 12 Creatinine 1.40 H Estim Creat Clear Calc 79 Estimated GF
[2022-02-06 12:21] LABS: Glucose Point of Care 93 mg/dl (65-105)
[2022-02-06 12:45] VITALS: BP 155/88
[2022-02-06 14:00] VITALS: BP 152/65; PULSE 61; RESP 20; TEMP 36.5; O2SAT 100
[2022-02-06 17:57] VITALS: BP 154/94
[2022-02-15 15:45] LABS: Serotonin 305 ng/mL (56-244)
== END 2022-02-06 19:25 | disposition home or self-care (01) | DRG 694 ==
LOC: ANHED 14:41 → ANH2MED 16:17
PROVIDERS: Family Medicine; General Practice; Internal Medicine Gastroenterology; Internal Medicine Hematology & Oncology; Nurse Practitioner; Admitting Provider Student in an Organized Health Care Education/Training Program; Emergency Provider Nurse Practitioner Family; PCP Nurse Practitioner Family; Visit Provider Internal Medicine
PROC: 0DJD8ZZ Inspection of Lower Intestinal Tract, Via Natural or Artificial Opening Endoscopic (ICD-10-PCS; CPT 45378; principal; 2022-02-01 14:45)
DX: C7A.8 Other malignant neuroendocrine tumors (principal); D61.818 Other pancytopenia; C78.7 Secondary malignant neoplasm of liver and intrahepatic bile duct; L97.529 Non-pressure chronic ulcer of other part of left foot with unspecified severity; K64.8 Other hemorrhoids; E11.9 Type 2 diabetes mellitus without complications; I10 Essential (primary) hypertension; E66.9 Obesity, unspecified; D63.8 Anemia in other chronic diseases classified elsewhere; R42 Dizziness and giddiness; K74.60 Unspecified cirrhosis of liver; R19.7 Diarrhea, unspecified; N39.0 Urinary tract infection, site not specified; Z20.822 Contact with and (suspected) exposure to COVID-19; Z68.37 Body mass index [BMI] 37.0-37.9, adult; Z89.521 Acquired absence of right knee; Z66 Do not resuscitate
CPT/HCPCS: 36415; 70450; 70553; 74177; 74250; 80053; 81001; 82274; 82607; 82728; 82746; 82948; 83036; 83540; 83550; 83605; 83690; 83735; 84260; 84443; 85014; 85018; 85025; 85055; 86316; 86850; 86900; 86901; 87040; 87045; 87086; 87177; 87209; 87269; 87272; 87427; 87493; 87636; 89055; 96361; 96365; 96367; 96375; 99285; A9270; A9577; G0378; J0360; J0696; J2354; J2704; J3475; J7030; J7120; Q9967

== ENCOUNTER 2022-02-09 15:44 | Inpatient (IN) | payer SELFPAY ==
[2022-02-09] VITALS (29 sets, daily range): BP systolic 66–154; BP diastolic 23–85; PULSE 53–68; RESP 12–20; TEMP 36.8; O2SAT 97–99; BMI 36.9
--- NOTE | ~2022-02-09 | CT_ITS ---
EXAMINATION: CT abdomen pelvis w con DATE: 02/09/2022 16:53 INDICATION: Abdominal pain and nausea TECHNIQUE: Computed tomography (CT) of the abdomen and pelvis was performed with 100 mL Omnipaque-350 intravenous contrast. Automated exposure control and iterative reconstruction technique were employe d. The dose-length product was 1756.36 mGy-cm. COMPARISON: 01/29/2022 FINDINGS: Calcified left lower lobe nodule consistent with old granulomatous disease. Heart size normal. No per icardial or pleural effusion. Several scattered small hepatic and splenic calcifications and calcifie d periportal lymph node consistent with old granulomatous disease. Subtle nodular liver surface consi stent with cirrhosis. There is suggestion of an ill-defined approximately 4 cm hypodense mass in segm ent 7 of the liver consistent which is somewhat limited due to streak artifact. Splenomegaly measurin g 19.1 cm craniocaudal length consistent with portal venous hypertension. Gallbladder, pancreas, left kidney and bilateral adrenal glands are normal. 2.6 subcentimeter cyst at the lower pole of the righ t kidney. 1 mm nonobstructing stone at a lower pole calyx of the right kidney. Postoperative change o f interval appendectomy with a couple surgical clips along the tip of the appendix and mild stranding along the right paracolic gutter. No bowel obstruction. There are few small diverticula along the si gmoid colon without adjacent inflammatory change to suggest diverticulitis. 10.1 x 5.6 x 7.2 cm lobul ar mass with coarse calcifications centered in the root of the mesentery with multiple surrounding mu scle prominent mesenteric lymph nodes. Bladder is normal. Small amount of ascites in the abdomen and pelvis. No abscess or free intraperitoneal gas. Very small fat-containing umbilical hernia. No pathol ogically enlarged abdominal or pelvic lymphadenopathy. Minimal scattered degenerative skeletal change s in the spine and pelvis. IMPRESSION: 1. 10.1 x 5.6 x 7.2 cm lobular partially calcified mesenteric mass with surrounding mesenteric lympha denopathy consistent with reported metastatic neuroendocrine tumor, likely carcinoid. 2. Cirrhosis with ill-defined 4 cm hypodense mass in segment 7 of the liver most likely metastatic ca rcinoid although could not exclude primary hepatocellular carcinoma. 3. Splenomegaly consistent with secondary portal venous hypertension. 4. Small amount of ascites in the abdomen and pelvis likely related to cirrhosis. 5. Postoperative change of right lower quadrant consistent with interval appendectomy. Reviewed, dictated and finalized at location L. T PRESERVER IMPRESSION: 1. 10.1 x 5.6 x 7.2 cm lobular partially calcified mesenteric mass with surroun ding mesenteric lymphadenopathy consistent with reported metastatic neuroendocr ine tumor, likely carcinoid. 2. Cirrhosis with ill-defined 4 cm hypodense mass in segment 7 of the liver mos t likely metastatic carcinoid although could not exclude primary hepatocellular carcinoma. 3. Splenomegaly consistent with secondary portal venous hypertension. 4. Small amount of ascites in the abdomen and pelvis likely related to cirrhosi s. 5. Postoperative change of right lower quadrant consistent with interval append ectomy.
--- NOTE | 2022-02-09 15:58 | ED.ABDPAIN ---
HPI - Abdominal Pain General Chief Complaint: Abdominal Pain Stated Complaint: weakness Time Seen by Provider: 02/09/22 15:51 History of Present Illness HPI narrative: Patient is a 56-year-old male with a history of neuroendocrine cancer, hypertension, hyperlipidemia, cirrhosis presenting with abdominal pain. Patient states that he was discharged from this facility 3 to 4 days ago. States he was supposed to be started on octreotide at that time but he has been unable to get the prescription filled. States that since being discharged, he has had persistent abdominal cramping and now nausea. States that he has been unable to eat or drink anything for several days. EMS was called today and found him to be hypotensive in the 60s over 30s. Fluids are started and his current blood pressure is 76/36. Patient otherwise complains of generalized weakness. He denies headaches, numbness or focal weakness, chest pain, shortness of breath, cough, vomiting, diarrhea, hematochezia, dysuria. Related Data Home Medications Medication Instructions Recorded Confirmed zolpidem 5 mg tablet 5 mg PO HS 01/29/22 01/29/22 aspirin 81 mg chewable tablet 81 mg PO DAILY 01/30/22 01/30/22 carvedilol 6.25 mg tablet 6.25 mg PO DAILY 01/30/22 01/30/22 ferrous sulfate 325 mg (65 mg 325 mg PO DAILY 01/30/22 01/30/22 iron) tablet (FeroSul) gabapentin 400 mg capsule 400 mg PO DAILY 01/30/22 01/30/22 hydroxyzine HCl 25 mg tablet 25 mg PO Q6H PRN Anxiety 01/30/22 01/30/22 levothyroxine 112 mcg tablet 112 mcg PO DAILY 01/30/22 01/30/22 omeprazole 40 mg capsule,delayed 40 mg PO DAILY 01/30/22 01/30/22 release pramipexole 0.125 mg tablet 0.125 mg PO HS 01/30/22 01/30/22 prochlorperazine maleate 10 mg 10 mg PO Q6H PRN Nausea 01/30/22 01/30/22 tablet spironolactone 50 mg tablet 50 mg PO DAILY 01/30/22 01/30/22 Allergies Allergy/AdvReac Type Severity Reaction Status Date / Time meperidine Allergy Intermediate Hives / Verified 02/09/22 15:54 Red Face morphine Allergy Intermediate Hives / Verified 02/09/22 15:54 Red Face Penicillins Allergy Intermediate Hives / Verified 02/09/22 15:54 Red Face Review of Systems Review of Systems: All systems reviewed & are unremarkable except as noted in HPI and below PMFSH Past Medical History Medical History HTN (hypertension) with goal to be determined Neuroendocrine cancer Pancytopenia Right below-knee amputee Surgical History Surgical History H/O hernia repair H/O shoulder surgery Family History Family History Mother Diabetes mellitus Cancer Father Diabetes mellitus Heart disease Social History Social History Social History: The patient is and has 2 children. He is Disabled. He has 2 children of the durable power trust and estates attorney for healthcare. The patient stated he never smoked. He does not use any alcohol marijuana illicit drugs. Code status DNR Smoking status: Never smoker Second hand tobacco smoke exposure: Yes Alcohol intake: never Substance use: never Lack of Transportation: YES Lack of Food: Often True Current Housing: I Have Housing Concerned About Future Housing: No Difficulty Paying Gas/Electric Bills: No Difficulty Paying for Meds: YES Currently Unemployed: No Education: High School Diploma/GED Difficulty w/ Childcare or Family Care: No Spiritual care concerns: No Exam Narrative: GENERAL: Pale, chronically ill-appearing, in no acute distress HEAD: Normocephalic, atraumatic. EYES: PERRLA and EOMI. ENT: Nares clear, no rhinorrhea or epistaxis. Mucous membranes dry NECK: Supple. CHEST: Clear to auscultation. No respiratory distress. HEART: Regular rate and rhythm. No murmur heard. Normal peripheral pulses. ABDO
[2022-02-09] MEDS: SODIUM CHLORIDE 0.9% IV 1,000 ML 999 ML IV CONT (16:03)
--- NOTE | 2022-02-09 16:04 | ECG_ITS ---
Measurements Intervals [place] Rate: 61 P: 9 MS: 152 QRS: 3 QRSD: 102 T: 14 QT: 503 QTc: 507 Interpretive Statements SINUS RHYTHM MINIMAL VOLTAGE CRITERIA FOR LVH, CONSIDER NORMAL VARIANT [MEETS CRITERIA IN ONE OF: R(aVL), S(V1), R(V5), R(V5/V6)+S(V1)] PROLONGED QT INTERVAL COMPARED TO ECG 08/23/2018 14:15:39 PROLONGED QT INTERVAL NOW PRESENT Electronically Signed On 02-10-2022 17:46:19 [employer]ACHINE by Gagandeep Hobbs M.D.
[2022-02-09 16:30] LABS: Basophils Percent Auto 0.3 % (0.2-1.2); Eosinophils Percent Auto 1.3 % (0-4.4); Hematocrit 24.9 % (42.0-52.0); Hemoglobin 7.8 g/dL (14.0-18.0); Immature Granulocyte Absolute 0.01 K/mm3 (0.00-0.031); Immature Granulocyte Percent A 0.3 % (0-0.5); Immature Platelet Fraction Pct 4.9 % (0.9-11.2); Lymphocytes Absolute Auto 0.79 K/mm3 (0.9-3.2); Lymphocytes Percent Auto 26.2 % (18.3-44.2); Mean Corpuscular HGB Conc 31.3 g/dl (32-36); Mean Corpuscular Hemoglobin 26.6 pg (26-34); Mean Platelet Volume 11.1 fl (7.4-10.4); Monocytes Absolute Auto 0.3 K/mm3 (0.1-0.6); Monocytes Percent Auto 8.3 % (2.6-8.5); Neutrophils Absolute Auto 1.9 K/mm3 (1.3-6.7); Neutrophils Percent Auto 63.6 % (45.5-73.1); Platelet Count Result 94 k/mm3 (150-375); Red Blood Count 2.93 M/mm3 (4.6-6.20)
[2022-02-09 16:36] LABS: Lactic Acid Reflex 1.6 mmol/L (0.7-2.0)
[2022-02-09 16:37] LABS: Alanine Aminotransferase 15 U/L (6-50); Albumin Level 3.4 g/dL (3.5-5.1); Alkaline Phosphatase 117 U/L (38-126); Anion Gap 5 mmol/L (8-16); Aspartate Amino Transferase 31 U/L (17-59); Blood Urea Nitrogen 23 mg/dL (9-20); Calcium 8.3 mg/dL (8.4-10.2); Carbon Dioxide 24 mmol/L (22-30); Chloride 106 mmol/L (98-107); Estimated CRCL calculation 89 ml/min; Estimated Glomerular Filt Rate 57; Glucose 97 mg/dL (65-110); Lipase 189 U/L (23-300); Potassium 3.5 mmol/L (3.4-5.0); Sodium 135 mmol/L (137-145)
[2022-02-09 16:39] LABS: INR 1.5; Prothrombin Time 17.6 Seconds (11.1-14.7)
[2022-02-09 16:40] LABS: Partial Thromboplastin Time 39.4 SECONDS (22.3-36.8)
[2022-02-09 16:58] LABS: Troponin I 0.056 ng/mL (0.000-0.034)
[2022-02-09 18:40] LABS: Add Urine Microscopic? YES; Appearance Urine Clear (Clear); Bilirubin Urine Negative (Negative); Blood Urine Negative (Negative); Glucose Urine UA Negative (Negative); Ketones Urine Negative (Negative); Leukocyte Esterase Ur Negative LEU/UL (Negative); Nitrate Urine Negative (Negative); Protein Urine Negative (Negative); pH Urine 6.5 (5.0-9.0)
--- NOTE | 2022-02-09 18:57 | PM.IMHP ---
H&P: HPI History of Present Illness Date/Time: 02/09/22 18:57 Chief Complaint: Abdominal pain Narrative: This is a 56-year-old male patient to has a history of neuroendocrine cancer, hypertension and hyperlipidemia as well as cirrhosis of the liver. Patient presented to the emergency room with complaints of abdominal pain. The patient was last discharged from here on 02/06/2022. The patient was discharged with octreotide and was not able to fill the prescription. The patient recently had a colonoscopy on 02/01/2022 which showed several internal hemorrhoids and GI suspected this was the cause of his bleeding. The patient continues to have abdominal cramps most likely related to the neuroendocrine tumor. The patient does have an oncologist elsewhere however the patient stated that he would rather see the oncologist here. Wound Care had been consulted for a half-dollar size ulcerated area on the left foot. Patient has been complaining of dizziness onset was 02/05/2022. The patient had a CT of the brain which was negative and an MRI which came back never had negative the patient was tried on meclizine. However today his heart rates in the 50s and 60s which is his baseline. The patient was complaining of dizziness today. WBCs 3.0 H&H is 7.8 and 24.9 his last H&H was 9.3 and 29.7 on 02/06/2022. APTT is 39.4. Sodium is 135. Troponin 0.056. Urine is negative. Influenza A/B and COVID is negative. IV fluids were started in the emergency room and he was given IV Tylenol. I also started him on octreotide. Oncology has been consulted. The patient is being admitted for observation status on the date of service 02/09/2022 Review of Systems Review of Systems: See HPI All systems reviewed & are unremarkable except as noted in HPI and below Constitutional: Constitutional: Reports as per HPI and Reports no additional constitutional complaints Eyes: Eyes: Reports as per HPI and Reports no additional eye complaints ENT: Reports system reviewed and no additional complaints, except as documented and Reports Normal hearing present Cardiovascular: Cardiovascular: Reports no additional cardiovascular complaints Respiratory: Respiratory: Reports no additional respiratory complaints and Reports no additional respiratory complaints Gastrointestinal: Gastrointestinal: Reports as per HPI and Reports no additional gastrointestinal complaints Musculoskeletal: Musculoskeletal: Reports no additional musculoskeletal complaints Integumentary/Breasts: Skin/Breast: Reports system reviewed and no additional complaints, except as docu and Reports as per HPI Neurologic: Reports system reviewed and no additional complaints, except as documented, Reports as per HPI and Reports Normal hearing present Psychiatric: Psychiatric: Reports no additional psychiatric complaints and Reports as per HPI Endocrine: Endocrine: Reports no additional endocrine complaints Hematologic/Lymphatic: Hematologic/Lymphatic: Reports no additional hematologic/lymphatic complaints Allergic/Immunologic: Allergic/Immunologic: Reports no additional allergic/immunologic complaints PMFSH Past Medical History Medical History (Updated 02/09/22 @ 21:55 by Pamela Carter NP) HTN (hypertension) with goal to be determined Hypothyroidism Neuroendocrine cancer Pancytopenia Right below-knee amputee Surgical History Surgical History H/O hernia repair H/O shoulder surgery Family History Family History Mother Diabetes mellitus Cancer Father Diabetes mellitus Heart disease Social History Social History Social History: The patient is and has 2 children. He is Disabled. He has 2 children of the durable power [place] attorney for healthcare. The patient stated he never smoked. He does not use any alcohol marijuana illici
[2022-02-09 18:58] LABS: Mucus Urine Rare /lpf; WBC Urine 0-3 /hpf
[2022-02-09 19:01] LABS: Color Urine Dark Yellow (Yellow)
[2022-02-09 20:05] LABS: Influenza A QL RT-PCR Negative (Negative); Influenza B QL RT-PCR Negative (Negative); SARS-CoV-2 RNA PCR Negative
--- NOTE | 2022-02-09 20:23 | PC.NURSE ---
Pt had a significant change in heart rate, now 55bpm- regular. Assessment reveals pt is still baseline mentation with no other adverse symptoms associated with bradycardia. Hospitalist contacted.
[2022-02-09 23:05] LABS: Hematocrit 26.5 % (42.0-52.0)
[2022-02-09 23:27] LABS: Troponin I 0.035 ng/mL (0.000-0.034)
[2022-02-10] VITALS (13 sets, daily range): BP systolic 139–170; BP diastolic 59–89; PULSE 49–62; RESP 16–22; TEMP 36.1–36.4; O2SAT 98–100
--- NOTE | 2022-02-10 00:05 | ADMGEN ---
This patient, Gino Murphy, was admitted to IMU Room 231-01. Patient/family oriented to hospital policies and general routines including ID bracelet, bed and alarms, visiting hours, pain management, procedures, bathroom and other care routines, personal items, smoking policy, room service/diet, and visiting hours. Information on how to activate the Rapid Response Team has been discussed. Patient/Family are encouraged to report perceived risks to care and to ask questions if they do not understand what they are told or what they should do.
[2022-02-10] MEDS: PRAMIPEXOLE 0.125 MG TABLET PO ×3 (00:17→22:48)
[2022-02-10] MEDS: PANTOPRAZOLE SODIUM IV 40 MG VIAL IV PUSH ×3 (00:17→22:46)
[2022-02-10] MEDS: MELATONIN 5 MG TABLET PO ×2 (00:17→22:45)
[2022-02-10] MEDS: fentaNYL CITRATE INJ (*CRX) 100 MCG/2 ML VIAL 25 MCG IV PUSH ×3 (00:18→22:48)
[2022-02-10 05:21] LABS: Basophils Percent Auto 0.5 % (0.2-1.2); Eosinophils Percent Auto 2.2 % (0-4.4); Hemoglobin 7.8 g/dL (14.0-18.0); Immature Granulocyte Absolute 0.01 K/mm3 (0.00-0.031); Immature Granulocyte Percent A 0.5 % (0-0.5); Immature Platelet Fraction Pct 3.9 % (0.9-11.2); Lymphocytes Percent Auto 37.6 % (18.3-44.2); Mean Corpuscular HGB Conc 31.2 g/dl (32-36); Mean Corpuscular Hemoglobin 26.8 pg (26-34); Mean Corpuscular Volume 85.9 fl (80-100); Mean Platelet Volume 10.5 fl (7.4-10.4); Monocytes Absolute Auto 0.2 K/mm3 (0.1-0.6); Monocytes Percent Auto 8.1 % (2.6-8.5); Neutrophils Percent Auto 51.1 % (45.5-73.1); Platelet Count Result 82 k/mm3 (150-375); Red Blood Count 2.91 M/mm3 (4.6-6.20); Red Cell Distribution Width 18.1 % (11.5-14.5)
[2022-02-10 05:23] LABS: Lactic Acid Reflex 0.9 mmol/L (0.7-2.0)
[2022-02-10 05:26] LABS: Alanine Aminotransferase 14 U/L (6-50); Albumin Level 3.3 g/dL (3.5-5.1); Alkaline Phosphatase 117 U/L (38-126); Anion Gap 3 mmol/L (8-16); Aspartate Amino Transferase 31 U/L (17-59); Blood Urea Nitrogen 20 mg/dL (9-20); Calcium 8.2 mg/dL (8.4-10.2); Carbon Dioxide 26 mmol/L (22-30); Chloride 107 mmol/L (98-107); Estimated CRCL calculation 91 ml/min; Estimated Glomerular Filt Rate > 60; Glucose 88 mg/dL (65-110); Magnesium 1.5 mg/dL (1.6-2.3); Potassium 3.6 mmol/L (3.4-5.0); Sodium 136 mmol/L (137-145)
[2022-02-10 05:56] LABS: White Blood Count 1.9 K/mm3 (4.5-10.0)
[2022-02-10] MEDS: OCTREOTIDE ACETATE 100 MCG/ML VIAL SUB-Q ×3 (08:36→17:48)
[2022-02-10 09:13] LABS: Hematocrit 24.1 % (42.0-52.0); Hemoglobin 7.7 g/dL (14.0-18.0)
[2022-02-10] MEDS: SILVERGEL (ELTA) 45 ML 1 APPLIC TOPICAL (09:30)
[2022-02-10] MEDS: hydrALAZINE HCL 50 MG TABLET PO ×2 (12:49→17:48)
[2022-02-10 15:20] LABS: Hematocrit 25.6 % (42.0-52.0)
--- NOTE | 2022-02-10 16:14 | WPDGICN ---
Assessment and Plan Assessment and plan (1) Neuroendocrine cancer: Code(s): C7A.8 - Other malignant neuroendocrine tumors Status: Acute Assessment and Plan: Patient with neuroendocrine tumor throughout his abdomen. This is carcinoid tumor type process. Currently followed by Oncology. This likely contributes to his diarrhea and abdominal pain. Symptoms improved when he was on octreotide. Patient however has been unable to obtain this medication prompting his readmission. Symptoms of diarrhea and abdominal pain recurred when he did not take this medication. No additional GI workup felt indicated this time. Previous admission colonoscopy small-bowel series were both performed. Internal hemorrhoids were noted at that time no obstruction encountered. (2) Right below-knee amputee: Code(s): Z89.511 - Acquired absence of right leg below knee Status: Acute (3) Cirrhosis: Code(s): K74.60 - Unspecified cirrhosis of liver Status: Acute Assessment and Plan: patient has cirrhosis of the liver. Currently felt to be compensated. This may account for his leukopenia and anemia. He appears to have pancytopenia on this basis. Plan for supportive care. No specific therapy at this time. He has been on a low-dose diuretic that can be continued empirically at this time. (4) Diarrhea: Code(s): R19.7 - Diarrhea, unspecified Status: Acute Assessment and Plan: Diarrhea appears related to his neuroendocrine tumor. Octreotide hopefully will help control the symptoms. No additional therapy will help felt warranted. Previous stool cultures negative. GI Consult Note Consult date/time: 02/10/22 16:14 Reason for consult: Neuroendocrine tumor. HPI: Gino Murphy is a 56 year old male With a known carcinoid tumor that is metastatic throughout the abdomen with multiple abdominal masses. May have liver metastases. Previously followed at [facility]. Was recently admitted to our hospital with diarrhea and rectal bleeding. Colonoscopy confirmed the rectal bleeding from an internal hemorrhoid. He has had no additional rectal bleeding since that time. During her hospital stay he was restarted on octreotide under the direction of the oncology service. However upon discharge from the hospital he no longer to this medication. He states he could not obtain at for on stated reasons. Because of this is abdominal pain which had improved became recurrent. He has had this pain since 2019 and is attributed to the neuroendocrine tumors. Patient states the diarrhea had improved while taking octreotide but now is recurred upon stopping these medications. Patient has additional past medical history of cirrhosis of liver. This is felt compensated and stable at present. Patient also has a previous right below the knee amputation. Review of Systems Review of Systems: Review of systems noncontributory. [facility] Past Medical History Medical History (Updated 02/09/22 @ 21:55 by Pamela Carter NP) HTN (hypertension) with goal to be determined Hypothyroidism Neuroendocrine cancer Pancytopenia Right below-knee amputee Surgical History Surgical History H/O hernia repair H/O shoulder surgery Family History Family History Mother Diabetes mellitus Cancer Father Diabetes mellitus Heart disease Social History Social History Social History: The patient is and has 2 children. He is Disabled. He has 2 children of the durable power consumer attorney for healthcare. The patient stated he never smoked. He does not use any alcohol marijuana illicit drugs. Code status DNR Smoking status: Never smoker Second hand tobacco smoke exposure: No Alcohol intake: unknown Substance use: unknown Lack of Transporta
--- NOTE | 2022-02-10 17:44 | PDONCCN ---
HPI - Date of Consult Date/Time: 02/10/22 17:44 Requesting Physician: Quintin Pizarro MD Primary Care Provider: Berenice Weldon, [employer]ION [employer]IST - Consult Narrative Reason for consult: Metastatic neuroendocrine tumor Narrative: Gino Murphy is a 56 year old male with history of metastatic neuroendocrine tumor of GI origin with extensive abdominal disease and liver metastasis. She is patient of Dr. Monroe and was last seen by her in September 2021. He lost his insurance and was not able to keep the follow-up appointment. He was recently admitted to the hospital on January 30 and received octreotide injection for abdominal cramping and diarrhea. He was discharged on February 06 and came back into the hospital 3 days later with complain of abdominal pain. He is also complaining of diarrhea. Patient had recent colonoscopy on February 01 that showed internal hemorrhoids. CT abdomen and pelvis was performed due to abdominal pain nausea and diarrhea that showed 10 x 5.6 x 7.2 cm mesenteric mass surrounding lymphadenopathy consistent with metastatic neuroendocrine tumor with liver cirrhosis and 4 cm mass in segment 7 of the liver consistent with metastatic carcinoid. Previously ordered serotonin and chromogranin remains pending. Review of Systems - Review of Systems All systems reviewed & are unremarkable except as noted in HPI and bel - Neurologic Reports system reviewed and no additional complaints, except as documented, Reports hearing normal [facility] Medical History: Medical History (Last Updated 02/09/22 @ 21:52 by Pamela Carter NP) HTN (hypertension) with goal to be determined Hypothyroidism Neuroendocrine cancer Pancytopenia Right below-knee amputee Surgical History: Surgical History (Last Reviewed 02/09/22 @ 21:38 by Pamela Carter NP) H/O hernia repair H/O shoulder surgery Family History: Family History (Last Reviewed 02/10/22 @ 00:05 by Jaxon Scott RN) Mother Diabetes mellitus Cancer Father Diabetes mellitus Heart disease - Social History Social History: Social History (Last Reviewed 02/09/22 @ 21:38 by Pamela Carter NP) Alcohol Use: Alcohol intake: unknown Substance Use: Substance use: unknown Others: Spiritual care concerns: No Smoking Status: Smoking status: Never smoker Second hand tobacco smoke exposure: No Social Determinants of Health: Has the Lack of Transportation Kept You From Medical Appointments or From Getting Medications?: No Within the Past 12 Months, Were You Worried Whether Your Food Would Run Out Before You Got Money to Buy More?: Never True What is Your Housing Situation Today?: I Have Housing Are You Worried That in the Next 2 Months, You May Not Have Your Own Housing to Live In?: No Do You Have Trouble Paying Your Heating Or Electricity Bill?: No Do You Have Trouble Paying For Medicines?: No Are You Currently Unemployed and Looking for Work?: No Highest Level of Education Completed: Decline to Answer Do You Have Trouble With Childcare or the Care of a Family Member?: No Exam - Vital Signs Vital Signs - 24 hr 02/09/22 17:45 02/09/22 17:47 02/09/22 18:00 Temperature Pulse Rate 68 63 58 L Respiratory Rate 17 16 17 Blood Pressure 148/73 H Pulse Oximetry 99 98 99 Oxygen Delivery 02/09/22 18:02 02/09/22 18:15 02/09/22 18:17 Temperature Pulse Rate 62 59 L 55 L Respiratory Rate 15 19 14 Blood Pressure 128/74 139/84 Pulse Oximetry 98 98 98 Oxygen Delivery 02/09/22 18:30 02/09/22 18:32 02/09/22 18:45 Temperature Pulse Rate 60 62 60 Respiratory Rate 16 17 16 Blood Pressure 143/72 H Pulse Oximetry 98 98 98 Oxygen Delivery 02/09/22 18:47 02/09/22 19:00 02/09/22 19:02 Temperature Pulse Rate 64 61 61 Respiratory Rate 15 19 17 Blood Pressure 147/72 H 154/85 H Pulse Oximetry 98 98 98 Oxygen Delivery 02/09/22 19:15
--- NOTE | 2022-02-10 18:20 | PM.IMPN ---
Progress Note: A&P Assessment and Plan (1) Abdominal pain: Code(s): R10.9 - Unspecified abdominal pain Status: Acute Assessment and Plan: -fentanyl p.r.n. -1. 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 2. Cirrhosis with ill-defined 4 cm hypodense mass in segment 7 of the liver most likely metastatic carcinoid although could not exclude primary hepatocellular carcinoma. 3. Splenomegaly consistent with secondary portal venous hypertension. 4. Small amount of ascites in the abdomen and pelvis likely related to cirrhosis. -octreotide was continued -IM Bentyl p.r.n. -continue with IV Protonix. -continue with gabapentin for chronic pain 02/10/2022 interval history: patien with history of metastatic neuroendocrine cancer has developed abdominal pain, rectal bleeding and diarrhea on his last admission patient had a colonoscopy it showed several internal hemorrhoid and GI suspect cause of his bleeding, patient was seen by Hematology-Oncology and started the patient on Octreotid however as a outpatient patient was not able to get the medications, and presented emergency depart with abdominal pain, his medication he started now and his pain is better, discussed with social service will plan for outpatient medication follow-up, continue to monitor and further recommendation to follow. (2) Cirrhosis: Code(s): K74.60 - Unspecified cirrhosis of liver Status: Acute Assessment and Plan: -this is a chronic condition and patient is aware. -continue with spironolactone (3) Neuroendocrine cancer: Code(s): C7A.8 - Other malignant neuroendocrine tumors Status: Acute Assessment and Plan: The patient was seeing an outside oncologist but prefers to see the oncologist here. Oncology has been consulted here. Please see the CT above. He has metastatic endocrine cancer (4) HTN (hypertension) with goal to be determined: Code(s): I10 - Essential (primary) hypertension Status: Acute Assessment and Plan: -continue with Coreg -continue with hydralazine (5) Hypothyroidism: Code(s): E03.9 - Hypothyroidism, unspecified Status: Acute Assessment and Plan: -continue levothyroxine -check thyroid level. (6) Anxiety: Code(s): F41.9 - Anxiety disorder, unspecified Status: Acute Assessment and Plan: -continue with hydroxyzine (7) Chronic foot ulcer: Code(s): L97.509 - Non-pressure chronic ulcer of other part of unspecified foot with unspecified severity Status: Acute Assessment and Plan: -wound care has been consulted. (8) Anemia: Code(s): D64.9 - Anemia, unspecified Status: Acute Assessment and Plan: The patient had a GI workup in a colonoscopy. The patient was found to have bleeding hemorrhoids at that time. Continue to monitor H&H. Check stool for occult blood. Subjective Date/time seen: 02/10/22 18:20 Abdominal pain HPI-Narrative: This is a 56-year-old male patient to has a history of neuroendocrine cancer, hypertension and hyperlipidemia as well as cirrhosis of the liver.? Patient presented to the emergency room with complaints of abdominal pain.? The patient was last discharged from here on 02/06/2022.? The patient was discharged with octreotide and was not able to fill the prescription.? The patient recently had a colonoscopy on 02/01/2022 which showed several internal hemorrhoids and GI suspected this was the cause of his bleeding.? The patient continues to have abdominal cramps most likely related to the neuroendocrine tumor.? The patient does have an oncologist elsewhere however the patient stated that he would rather see the oncologist here.? Wound Care had been consulted for a half-dollar size ulcerated area on the left foot.? Patient has been complaining of dizziness
[2022-02-11] VITALS (10 sets, daily range): BP systolic 141–167; BP diastolic 59–87; PULSE 45–62; RESP 14–20; TEMP 36.2–36.8; O2SAT 98–100
[2022-02-11 01:06] LABS: Magnesium 1.6 mg/dL (1.6-2.3)
[2022-02-11] MEDS: fentaNYL CITRATE INJ (*CRX) 100 MCG/2 ML VIAL 25 MCG IV PUSH ×3 (04:32→20:32)
[2022-02-11 04:47] LABS: Basophils Percent Auto 0.5 % (0.2-1.2); Eosinophils Percent Auto 1.9 % (0-4.4); Hematocrit 25.9 % (42.0-52.0); Hemoglobin 8.2 g/dL (14.0-18.0); Immature Granulocyte Absolute 0.01 K/mm3 (0.00-0.031); Immature Granulocyte Percent A 0.5 % (0-0.5); Immature Platelet Fraction Pct 4.1 % (0.9-11.2); Lymphocytes Absolute Auto 0.58 K/mm3 (0.9-3.2); Lymphocytes Percent Auto 27.5 % (18.3-44.2); Mean Corpuscular HGB Conc 31.7 g/dl (32-36); Mean Corpuscular Volume 85.2 fl (80-100); Mean Platelet Volume 10.4 fl (7.4-10.4); Monocytes Absolute Auto 0.2 K/mm3 (0.1-0.6); Monocytes Percent Auto 8.1 % (2.6-8.5); Neutrophils Absolute Auto 1.3 K/mm3 (1.3-6.7); Neutrophils Percent Auto 61.5 % (45.5-73.1); Platelet Count Result 89 k/mm3 (150-375); Red Blood Count 3.04 M/mm3 (4.6-6.20); Red Cell Distribution Width 17.6 % (11.5-14.5); White Blood Count 2.1 K/mm3 (4.5-10.0)
[2022-02-11 04:59] LABS: Alanine Aminotransferase 18 U/L (6-50); Albumin Level 3.5 g/dL (3.5-5.1); Alkaline Phosphatase 119 U/L (38-126); Anion Gap 5 mmol/L (8-16); Aspartate Amino Transferase 39 U/L (17-59); Bilirubin,Total 1.2 mg/dL (0.2-1.3); Blood Urea Nitrogen 17 mg/dL (9-20); Calcium 8.4 mg/dL (8.4-10.2); Carbon Dioxide 24 mmol/L (22-30); Chloride 106 mmol/L (98-107); Estimated CRCL calculation 91 ml/min; Estimated Glomerular Filt Rate > 60; Glucose 105 mg/dL (65-110); Potassium 3.7 mmol/L (3.4-5.0); Sodium 135 mmol/L (137-145)
[2022-02-11] MEDS: LEVOTHYROXINE SODIUM 112 MCG TABLET PO (06:42)
[2022-02-11] MEDS: GABAPENTIN 400 MG CAPSULE PO (09:44)
[2022-02-11] MEDS: FERROUS SULFATE 324 MG TABLET PO (09:44)
[2022-02-11] MEDS: SPIRONOLACTONE 50 MG TABLET PO (09:44)
[2022-02-11] MEDS: hydrALAZINE HCL 50 MG TABLET PO ×3 (09:44→17:58)
[2022-02-11] MEDS: hydrOXYzine pamoate 25 MG CAPSULE PO ×2 (09:44→18:00)
[2022-02-11] MEDS: ASPIRIN 81 MG CHEWABLE TABLET PO (09:44)
[2022-02-11] MEDS: carvediloL 6.25 MG TABLET PO (09:44)
[2022-02-11] MEDS: OCTREOTIDE ACETATE 100 MCG/ML VIAL SUB-Q ×3 (09:45→20:33)
[2022-02-11] MEDS: PANTOPRAZOLE SODIUM IV 40 MG VIAL IV PUSH ×2 (09:45→20:33)
[2022-02-11] MEDS: SILVERGEL (ELTA) 45 ML 1 APPLIC TOPICAL (09:46)
--- NOTE | 2022-02-11 11:44 | WPDGIPROGNO ---
Progress Note: A&P Assessment and Plan (1) Abdominal pain: Code(s): R10.9 - Unspecified abdominal pain Status: Acute Assessment and Plan: probably from underlying neuroendocrine tumor, he has not been able to get medication as outpatient hem-onc on board (2) Neuroendocrine cancer: Code(s): C7A.8 - Other malignant neuroendocrine tumors Status: Acute Assessment and Plan: follow-up by hem-onc (3) Cirrhosis: Code(s): K74.60 - Unspecified cirrhosis of liver Status: Acute Assessment and Plan: compensated, he can follow-up with Dr Batista (4) Diarrhea: Code(s): R19.7 - Diarrhea, unspecified Status: Acute Assessment and Plan: denies today Subjective Date/time seen: 02/11/22 11:44 Interval history: diarrhea better but still with abdominal pain Review of Systems Review of Systems: All systems reviewed & are unremarkable except as noted in HPI and below Exam Narrative: Physical exam reveals patient be alert. Vital signs stable. patient is sitting in bed. HEENT exam reveals no icterus. Lungs are clear. Heart without murmur. Abdomen is obese. No palpable organomegaly evident. He has poorly localized mid abdominal discomfort. Extremities without clubbing cyanosis or edema. He has right lvyde-owi-ggyh amputation. Psych: no anxiety. Neuro: non-focal Objective Data Vital Signs Vital Signs: Vital Signs - 24 hr 02/10/22 12:00 02/10/22 12:00 02/10/22 13:15 Temperature Pulse Rate 54 L 51 L Respiratory Rate Blood Pressure Pulse Oximetry Oxygen Delivery Room Air 02/10/22 12:00 02/10/22 15:24 02/10/22 16:00 Temperature 96.9 F L 97.1 F L Pulse Rate 58 L 55 L Respiratory Rate 18 18 Blood Pressure 170/89 H 153/81 H Pulse Oximetry 99 98 Oxygen Delivery Room Air 02/10/22 16:00 02/10/22 18:00 02/10/22 20:00 Temperature 97.6 F Pulse Rate 59 L 52 L 54 L Respiratory Rate 16 Blood Pressure 150/59 H Pulse Oximetry 99 Oxygen Delivery 02/11/22 00:00 02/10/22 20:00 02/11/22 00:00 Temperature Pulse Rate 45 L Respiratory Rate 16 Blood Pressure 154/60 H Pulse Oximetry 98 Oxygen Delivery Room Air Room Air 02/10/22 20:00 02/10/22 22:00 02/11/22 00:00 Temperature Pulse Rate 53 L 61 52 L Respiratory Rate Blood Pressure Pulse Oximetry Oxygen Delivery 02/11/22 02:00 02/11/22 04:00 02/11/22 04:00 Temperature 97.2 F L Pulse Rate 50 L 62 53 L Respiratory Rate 16 Blood Pressure 167/87 H Pulse Oximetry 99 Oxygen Delivery 02/11/22 06:00 02/11/22 04:00 02/11/22 08:00 Temperature 98.2 F Pulse Rate 48 L 53 L Respiratory Rate 14 Blood Pressure 155/59 H Pulse Oximetry 98 Oxygen Delivery Room Air Intake/Output Intake/Output: Intake & Output 02/08/22 02/09/22 02/10/22 02/11/22 23:59 23:59 23:59 23:59 Intake Total 1100 1080 1800 Output Total 1575 1200 Balance 1100 -495 600 Meds/Results Medications: Active Medications Generic Name Dose Route Start Last Admin Trade Name Bennyq PRN Reason Stop Dose Admin Aspirin 81 mg 02/11/22 09:00 02/11/22 09:44 Aspirin 81 Mg Chewable Tablet PO 81 mg DAILY MARY Administration Carvedilol 6.25 mg 02/11/22 09:00 02/11/22 09:44 Carvedilol 6.25 Mg Tablet PO 6.25 mg DAILY MARY Administration Dicyclomine HCl 20 mg 02/09/22 21:44 Dicyclomine Hcl Inj 20 Mg/2 Ml Vial IM QID PRN Cramping Fentanyl Citrate 25 mcg 02/09/22 21:45 02/11/22 04:32 Fentanyl Citrate Inj (*Crx) 100 Mcg/2 Ml Vial IV PUSH 25 mcg Q4H PRN Administration Pain Rated 7-10 Ferrous Sulfate 324 mg 02/11/22 08:00 02/11/22 09:44 Ferrous Sulfate 324 Mg Tablet PO 324 mg DAILY@0800 MARY Administration Gabapentin 400 mg 02/11/22 09:00 02/11/22 09:44 Gabapentin 400 Mg Capsule PO 400 mg DAILY MARY Administration Hydralazine HCl 50 mg 02/10/22 12:00 02/11/22 09
--- NOTE | 2022-02-11 13:38 | PM.IMPN ---
Progress Note: A&P Assessment and Plan (1) Abdominal pain: Code(s): R10.9 - Unspecified abdominal pain Status: Acute Assessment and Plan: -fentanyl p.r.n. -1. 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 2. Cirrhosis with ill-defined 4 cm hypodense mass in segment 7 of the liver most likely metastatic carcinoid although could not exclude primary hepatocellular carcinoma. 3. Splenomegaly consistent with secondary portal venous hypertension. 4. Small amount of ascites in the abdomen and pelvis likely related to cirrhosis. -octreotide was continued -IM Bentyl p.r.n. -continue with IV Protonix. -continue with gabapentin for chronic pain 02/11/2022 interval history: patien with history of metastatic neuroendocrine cancer has developed abdominal pain, rectal bleeding and diarrhea on his last admission patient had a colonoscopy it showed several internal hemorrhoid and GI suspect cause of his bleeding, patient was seen by Hematology-Oncology and started the patient on Octreotid however as a outpatient patient was not able to get the medications, and presented emergency depart with abdominal pain, his medication started now and his pain is better, discussed with social service will plan for outpatient medication,social service is following with pharmacy, patient blood culture is growing staphylococcus capitis will continue vancomycin and follow up indentification and sansitivity, follow-up, continue to monitor and further recommendation to follow. (2) Cirrhosis: Code(s): K74.60 - Unspecified cirrhosis of liver Status: Acute Assessment and Plan: -this is a chronic condition and patient is aware. -continue with spironolactone (3) Neuroendocrine cancer: Code(s): C7A.8 - Other malignant neuroendocrine tumors Status: Acute Assessment and Plan: The patient was seeing an outside oncologist but prefers to see the oncologist here. Oncology has been consulted here. Please see the CT above. He has metastatic endocrine cancer (4) HTN (hypertension) with goal to be determined: Code(s): I10 - Essential (primary) hypertension Status: Acute Assessment and Plan: -continue with Coreg -continue with hydralazine (5) Hypothyroidism: Code(s): E03.9 - Hypothyroidism, unspecified Status: Acute Assessment and Plan: -continue levothyroxine -check thyroid level. (6) Anxiety: Code(s): F41.9 - Anxiety disorder, unspecified Status: Acute Assessment and Plan: -continue with hydroxyzine (7) Chronic foot ulcer: Code(s): L97.509 - Non-pressure chronic ulcer of other part of unspecified foot with unspecified severity Status: Acute Assessment and Plan: -wound care has been consulted. (8) Anemia: Code(s): D64.9 - Anemia, unspecified Status: Acute Assessment and Plan: The patient had a GI workup in a colonoscopy. The patient was found to have bleeding hemorrhoids at that time. Continue to monitor H&H. Check stool for occult blood. Subjective Date/time seen: 02/11/22 13:38 02/11/2022 interval history: patien with history of metastatic neuroendocrine cancer has developed abdominal pain, rectal bleeding and diarrhea on his last admission patient had a colonoscopy it showed several internal hemorrhoid and GI suspect cause of his bleeding, patient was seen by Hematology-Oncology and started the patient on Octreotid however as a outpatient patient was not able to get the medications, and presented emergency depart with abdominal pain, his medication started now and his pain is better, discussed with social service will plan for outpatient medication,social service is following with pharmacy, patient blood culture is growing staphylococcus capitis will continue vancomycin and follow up in
--- NOTE | 2022-02-11 19:51 | PC.NURSE ---
Pt, Gino Murphy arrived to [address] [place] [address] Room 253 at 1900.
[2022-02-11] MEDS: MELATONIN 5 MG TABLET PO (20:33)
[2022-02-11] MEDS: PRAMIPEXOLE 0.125 MG TABLET PO (20:34)
[2022-02-12] VITALS (8 sets, daily range): BP systolic 125–168; BP diastolic 50–81; PULSE 51–68; RESP 14–20; TEMP 36–36.6; O2SAT 97–100
[2022-02-12 00:51] LABS: Magnesium 1.5 mg/dL (1.6-2.3)
[2022-02-12] MEDS: fentaNYL CITRATE INJ (*CRX) 100 MCG/2 ML VIAL 25 MCG IV PUSH ×3 (02:49→20:31)
[2022-02-12] MEDS: LEVOTHYROXINE SODIUM 112 MCG TABLET PO (05:30)
[2022-02-12] MEDS: hydrOXYzine pamoate 25 MG CAPSULE PO (05:33)
[2022-02-12 06:16] LABS: Hematocrit 26.2 % (42.0-52.0); Hemoglobin 8.2 g/dL (14.0-18.0); Immature Platelet Fraction Pct 4.2 % (0.9-11.2); Mean Corpuscular HGB Conc 31.3 g/dl (32-36); Mean Corpuscular Hemoglobin 26.7 pg (26-34); Mean Corpuscular Volume 85.3 fl (80-100); Mean Platelet Volume 10.5 fl (7.4-10.4); Platelet Count Result 93 k/mm3 (150-375); Red Blood Count 3.07 M/mm3 (4.6-6.20); Red Cell Distribution Width 17.3 % (11.5-14.5)
[2022-02-12 06:24] LABS: White Blood Count 1.7 K/mm3 (4.5-10.0)
[2022-02-12 06:35] LABS: Alanine Aminotransferase 17 U/L (6-50); Albumin Level 3.6 g/dL (3.5-5.1); Alkaline Phosphatase 114 U/L (38-126); Anion Gap 5 mmol/L (8-16); Aspartate Amino Transferase 35 U/L (17-59); Bilirubin,Total 1.3 mg/dL (0.2-1.3); Blood Urea Nitrogen 13 mg/dL (9-20); Calcium 8.4 mg/dL (8.4-10.2); Carbon Dioxide 25 mmol/L (22-30); Chloride 103 mmol/L (98-107); Estimated CRCL calculation 83 ml/min; Estimated Glomerular Filt Rate 57; Glucose 98 mg/dL (65-110); Potassium 3.6 mmol/L (3.4-5.0); Sodium 133 mmol/L (137-145)
[2022-02-12] MEDS: PANTOPRAZOLE SODIUM IV 40 MG VIAL IV PUSH ×2 (08:28→20:31)
[2022-02-12] MEDS: carvediloL 6.25 MG TABLET PO (08:29)
[2022-02-12] MEDS: FERROUS SULFATE 324 MG TABLET PO (08:29)
[2022-02-12] MEDS: ASPIRIN 81 MG CHEWABLE TABLET PO (08:29)
[2022-02-12] MEDS: GABAPENTIN 400 MG CAPSULE PO (08:29)
[2022-02-12] MEDS: hydrALAZINE HCL 50 MG TABLET PO ×3 (08:30→17:18)
[2022-02-12] MEDS: SILVERGEL (ELTA) 45 ML 1 APPLIC TOPICAL (08:31)
[2022-02-12 08:37] LABS: Magnesium 1.7 mg/dL (1.6-2.3)
[2022-02-12 09:14] LABS: Monocytes Absolute Manual 0.13 K/mm3 (0.1-0.90); Monocytes Percent Manual 8 % (3-9); Neutrophils Percent Manual 27 % (46-73); Platelet Estimate Decreased (Adequate); Total Cells Counted 100
[2022-02-12 09:15] LABS: Anisocytosis 1+ (NORMAL); Hypochromasia 1+ (NORMAL); Ovalocytes 1+ (NORMAL); Poikilocytosis 1+ (NORMAL); Schistocytes Rare (NORMAL)
[2022-02-12] MEDS: OCTREOTIDE ACETATE 100 MCG/ML VIAL SUB-Q ×3 (10:26→17:18)
[2022-02-12] MEDS: SPIRONOLACTONE 50 MG TABLET PO (10:26)
[2022-02-12] MEDS: FILGRASTIM-SNDZ 480 MCG/0.8 ML SYRINGE SUB-Q (13:42)
--- NOTE | 2022-02-12 14:06 | PM.IMPN ---
Progress Note: A&P Assessment and Plan (1) Abdominal pain: Code(s): R10.9 - Unspecified abdominal pain Status: Acute Assessment and Plan: -fentanyl p.r.n. -1. 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 2. Cirrhosis with ill-defined 4 cm hypodense mass in segment 7 of the liver most likely metastatic carcinoid although could not exclude primary hepatocellular carcinoma. 3. Splenomegaly consistent with secondary portal venous hypertension. 4. Small amount of ascites in the abdomen and pelvis likely related to cirrhosis. -octreotide was continued -IM Bentyl p.r.n. -continue with IV Protonix. -continue with gabapentin for chronic pain 02/12/2022 interval history: patien with history of metastatic neuroendocrine cancer has developed abdominal pain, rectal bleeding and diarrhea on his last admission patient had a colonoscopy it showed several internal hemorrhoid and GI suspect cause of his bleeding, patient was seen by Hematology-Oncology and started the patient on Octreotid however as a outpatient patient was not able to get the medications, and presented emergency depart with abdominal pain, his medication started now and his pain is better, discussed with social service will plan for outpatient medication,social service is following with pharmacy, I was told today his medication is now available at his pharmacy, also to his white counts have dropped to 1.7 and his ANC is [address] Puri, I have started patient on filgrastim 480mcg q daily, will follow and once his ANC reaches 1000 will stop the medication and plan. patient blood culture is growing staphylococcus capitis will continue vancomycin and follow up indentification and sansitivity, follow-up, continue to monitor and further recommendation to follow. (2) Cirrhosis: Code(s): K74.60 - Unspecified cirrhosis of liver Status: Acute Assessment and Plan: -this is a chronic condition and patient is aware. -continue with spironolactone (3) Neuroendocrine cancer: Code(s): C7A.8 - Other malignant neuroendocrine tumors Status: Acute Assessment and Plan: The patient was seeing an outside oncologist but prefers to see the oncologist here. Oncology has been consulted here. Please see the CT above. He has metastatic endocrine cancer (4) HTN (hypertension) with goal to be determined: Code(s): I10 - Essential (primary) hypertension Status: Acute Assessment and Plan: -continue with Coreg -continue with hydralazine (5) Hypothyroidism: Code(s): E03.9 - Hypothyroidism, unspecified Status: Acute Assessment and Plan: -continue levothyroxine -check thyroid level. (6) Anxiety: Code(s): F41.9 - Anxiety disorder, unspecified Status: Acute Assessment and Plan: -continue with hydroxyzine (7) Chronic foot ulcer: Code(s): L97.509 - Non-pressure chronic ulcer of other part of unspecified foot with unspecified severity Status: Acute Assessment and Plan: -wound care has been consulted. (8) Anemia: Code(s): D64.9 - Anemia, unspecified Status: Acute Assessment and Plan: The patient had a GI workup in a colonoscopy. The patient was found to have bleeding hemorrhoids at that time. Continue to monitor H&H. Check stool for occult blood. Subjective Date/time seen: 02/12/22 14:06 02/12/2022 interval history: patien with history of metastatic neuroendocrine cancer has developed abdominal pain, rectal bleeding and diarrhea on his last admission patient had a colonoscopy it showed several internal hemorrhoid and GI suspect cause of his bleeding, patient was seen by Hematology-Oncology and started the patient on Octreotid however as a outpatient patient was not able to get the medications, and presente
[2022-02-12] MEDS: MELATONIN 5 MG TABLET PO (20:31)
[2022-02-12] MEDS: PRAMIPEXOLE 0.125 MG TABLET PO (20:31)
[2022-02-12 23:23] LABS: IFOB Positive Control Positive; Immunochemical Fecal Occult Bl Positive (N)
[2022-02-13 00:35] LABS: Magnesium 1.5 mg/dL (1.6-2.3)
[2022-02-13] MEDS: fentaNYL CITRATE INJ (*CRX) 100 MCG/2 ML VIAL 25 MCG IV PUSH ×3 (00:41→20:40)
[2022-02-13 04:00] VITALS: BP 142/55; PULSE 60; RESP 14; TEMP 36.1; O2SAT 99
[2022-02-13 05:10] LABS: Basophils Percent Auto 0.4 % (0.2-1.2); Eosinophils Absolute Auto 0.1 K/mm3 (0-0.3); Eosinophils Percent Auto 1.2 % (0-4.4); Hematocrit 28.3 % (42.0-52.0); Immature Granulocyte Absolute 0.04 K/mm3 (0.00-0.031); Immature Granulocyte Percent A 0.5 % (0-0.5); Immature Platelet Fraction Pct 5.3 % (0.9-11.2); Lymphocytes Absolute Auto 0.72 K/mm3 (0.9-3.2); Lymphocytes Percent Auto 8.5 % (18.3-44.2); Mean Corpuscular HGB Conc 31.8 g/dl (32-36); Mean Corpuscular Hemoglobin 26.6 pg (26-34); Mean Corpuscular Volume 83.7 fl (80-100); Mean Platelet Volume 10.3 fl (7.4-10.4); Monocytes Absolute Auto 0.4 K/mm3 (0.1-0.6); Monocytes Percent Auto 4.5 % (2.6-8.5); Neutrophils Absolute Auto 7.2 K/mm3 (1.3-6.7); Neutrophils Percent Auto 84.9 % (45.5-73.1); Platelet Count Result 93 k/mm3 (150-375); Red Blood Count 3.38 M/mm3 (4.6-6.20); Red Cell Distribution Width 17.4 % (11.5-14.5); White Blood Count 8.5 K/mm3 (4.5-10.0)
[2022-02-13 05:19] LABS: Alanine Aminotransferase 19 U/L (6-50); Albumin Level 3.9 g/dL (3.5-5.1); Alkaline Phosphatase 131 U/L (38-126); Anion Gap 8 mmol/L (8-16); Aspartate Amino Transferase 35 U/L (17-59); Bilirubin,Total 2.1 mg/dL (0.2-1.3); Blood Urea Nitrogen 13 mg/dL (9-20); Calcium 8.6 mg/dL (8.4-10.2); Carbon Dioxide 24 mmol/L (22-30); Chloride 103 mmol/L (98-107); Estimated CRCL calculation 83 ml/min; Estimated Glomerular Filt Rate 57; Glucose 119 mg/dL (65-110); Potassium 3.7 mmol/L (3.4-5.0); Sodium 135 mmol/L (137-145)
[2022-02-13] MEDS: LEVOTHYROXINE SODIUM 112 MCG TABLET PO (05:52)
[2022-02-13 08:31] VITALS: PULSE 62
[2022-02-13] MEDS: carvediloL 6.25 MG TABLET PO (08:31)
[2022-02-13] MEDS: hydrALAZINE HCL 50 MG TABLET PO ×3 (08:31→16:21)
[2022-02-13] MEDS: ASPIRIN 81 MG CHEWABLE TABLET PO (08:32)
[2022-02-13] MEDS: PANTOPRAZOLE SODIUM IV 40 MG VIAL IV PUSH ×2 (08:32→20:41)
[2022-02-13] MEDS: FERROUS SULFATE 324 MG TABLET PO (08:33)
[2022-02-13] MEDS: GABAPENTIN 400 MG CAPSULE PO (08:33)
[2022-02-13] MEDS: SPIRONOLACTONE 50 MG TABLET PO (08:33)
[2022-02-13] MEDS: OCTREOTIDE ACETATE 100 MCG/ML VIAL SUB-Q ×3 (08:40→16:19)
[2022-02-13] MEDS: FILGRASTIM-SNDZ 480 MCG/0.8 ML SYRINGE SUB-Q (08:41)
[2022-02-13] MEDS: SILVERGEL (ELTA) 45 ML 1 APPLIC TOPICAL (08:42)
[2022-02-13 10:54] VITALS: BP 118/52; PULSE 60; RESP 18; TEMP 36.4; O2SAT 98
[2022-02-13 11:04] VITALS: O2SAT 97
[2022-02-13] MEDS: hydrOXYzine pamoate 25 MG CAPSULE PO (13:18)
--- NOTE | 2022-02-13 14:39 | PM.IMPN ---
Progress Note: A&P Assessment and Plan (1) Abdominal pain: Code(s): R10.9 - Unspecified abdominal pain Status: Acute Assessment and Plan: -fentanyl p.r.n. -1. 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 2. Cirrhosis with ill-defined 4 cm hypodense mass in segment 7 of the liver most likely metastatic carcinoid although could not exclude primary hepatocellular carcinoma. 3. Splenomegaly consistent with secondary portal venous hypertension. 4. Small amount of ascites in the abdomen and pelvis likely related to cirrhosis. -octreotide was continued -IM Bentyl p.r.n. -continue with IV Protonix. -continue with gabapentin for chronic pain 02/13/2022 interval history: patien with history of metastatic neuroendocrine cancer has developed abdominal pain, rectal bleeding and diarrhea on his last admission patient had a colonoscopy it showed several internal hemorrhoid and GI suspect cause of his bleeding, patient was seen by Hematology-Oncology and started the patient on Octreotid however as a outpatient patient was not able to get the medications, and presented emergency depart with abdominal pain, his medication started now and his pain is better, discussed with social service will plan for outpatient medication,social service is following with pharmacy,on 02/12 I was told his medication is now available at his pharmacy, also on 02/12 his white counts have dropped to 1.7 and his ANC was [address] Puri, I have started patient on filgrastim 480mcg q daily, today his white counts are 8.5 and ANC is above 7000, will stop the medication and plan. patient blood culture is growing staphylococcus capitis not MRSA will start the vancomycin will start doxycycline, follow-up, continue to monitor and further recommendation to follow (2) Cirrhosis: Code(s): K74.60 - Unspecified cirrhosis of liver Status: Acute Assessment and Plan: -this is a chronic condition and patient is aware. -continue with spironolactone (3) Neuroendocrine cancer: Code(s): C7A.8 - Other malignant neuroendocrine tumors Status: Acute Assessment and Plan: The patient was seeing an outside oncologist but prefers to see the oncologist here. Oncology has been consulted here. Please see the CT above. He has metastatic endocrine cancer (4) HTN (hypertension) with goal to be determined: Code(s): I10 - Essential (primary) hypertension Status: Acute Assessment and Plan: -continue with Coreg -continue with hydralazine (5) Hypothyroidism: Code(s): E03.9 - Hypothyroidism, unspecified Status: Acute Assessment and Plan: -continue levothyroxine -check thyroid level. (6) Anxiety: Code(s): F41.9 - Anxiety disorder, unspecified Status: Acute Assessment and Plan: -continue with hydroxyzine (7) Chronic foot ulcer: Code(s): L97.509 - Non-pressure chronic ulcer of other part of unspecified foot with unspecified severity Status: Acute Assessment and Plan: -wound care has been consulted. (8) Anemia: Code(s): D64.9 - Anemia, unspecified Status: Acute Assessment and Plan: The patient had a GI workup in a colonoscopy. The patient was found to have bleeding hemorrhoids at that time. Continue to monitor H&H. Check stool for occult blood. Subjective Date/time seen: 02/13/22 14:39 02/13/2022 interval history: patien with history of metastatic neuroendocrine cancer has developed abdominal pain, rectal bleeding and diarrhea on his last admission patient had a colonoscopy it showed several internal hemorrhoid and GI suspect cause of his bleeding, patient was seen by Hematology-Oncology and started the patient on Octreotid however as a outpatient patient was not able to get the medications, and
[2022-02-13] MEDS: ACETAMINOPHEN 325 MG TABLET 650 MG PO (14:56)
[2022-02-13 15:24] VITALS: BP 117/52; PULSE 70; RESP 18; TEMP 37.1; O2SAT 97
[2022-02-13] MEDS: DOXYCYCLINE 100 MG/NS 100 ML 100 MG/100 ML BAG IVPB ×2 (17:11→21:26)
[2022-02-13 19:18] VITALS: BP 122/58; PULSE 65; RESP 20; TEMP 36.1; O2SAT 95
[2022-02-13] MEDS: MELATONIN 5 MG TABLET PO (20:41)
[2022-02-13] MEDS: PRAMIPEXOLE 0.125 MG TABLET PO (20:41)
[2022-02-14] VITALS (7 sets, daily range): BP systolic 120–141; BP diastolic 49–72; PULSE 56–67; RESP 16–18; TEMP 36.2–36.9; O2SAT 97–100
[2022-02-14 00:51] LABS: Magnesium 1.5 mg/dL (1.6-2.3)
[2022-02-14] MEDS: fentaNYL CITRATE INJ (*CRX) 100 MCG/2 ML VIAL 25 MCG IV PUSH ×3 (01:08→17:23)
[2022-02-14 05:14] LABS: Basophils Percent Auto 0.3 % (0.2-1.2); Eosinophils Absolute Auto 0.1 K/mm3 (0-0.3); Eosinophils Percent Auto 1.1 % (0-4.4); Hematocrit 28.3 % (42.0-52.0); Hemoglobin 8.9 g/dL (14.0-18.0); Immature Granulocyte Absolute 0.18 K/mm3 (0.00-0.031); Immature Granulocyte Percent A 1.9 % (0-0.5); Lymphocytes Absolute Auto 1.17 K/mm3 (0.9-3.2); Lymphocytes Percent Auto 12.4 % (18.3-44.2); Mean Corpuscular HGB Conc 31.4 g/dl (32-36); Mean Corpuscular Hemoglobin 26.3 pg (26-34); Mean Corpuscular Volume 83.5 fl (80-100); Mean Platelet Volume 11.1 fl (7.4-10.4); Monocytes Absolute Auto 0.5 K/mm3 (0.1-0.6); Monocytes Percent Auto 5.2 % (2.6-8.5); Neutrophils Absolute Auto 7.5 K/mm3 (1.3-6.7); Neutrophils Percent Auto 79.1 % (45.5-73.1); Platelet Count Result 91 k/mm3 (150-375); Red Blood Count 3.39 M/mm3 (4.6-6.20); Red Cell Distribution Width 17.6 % (11.5-14.5); White Blood Count 9.5 K/mm3 (4.5-10.0)
[2022-02-14 05:25] LABS: Alanine Aminotransferase 19 U/L (6-50); Albumin Level 3.8 g/dL (3.5-5.1); Alkaline Phosphatase 136 U/L (38-126); Anion Gap 7 mmol/L (8-16); Aspartate Amino Transferase 35 U/L (17-59); Bilirubin,Total 1.9 mg/dL (0.2-1.3); Blood Urea Nitrogen 12 mg/dL (9-20); Calcium 8.8 mg/dL (8.4-10.2); Carbon Dioxide 25 mmol/L (22-30); Chloride 104 mmol/L (98-107); Estimated CRCL calculation 83 ml/min; Estimated Glomerular Filt Rate 57; Glucose 108 mg/dL (65-110); Potassium 3.7 mmol/L (3.4-5.0); Sodium 136 mmol/L (137-145)
[2022-02-14] MEDS: LEVOTHYROXINE SODIUM 112 MCG TABLET PO (06:11)
[2022-02-14] MEDS: GABAPENTIN 400 MG CAPSULE PO (08:10)
[2022-02-14] MEDS: hydrALAZINE HCL 50 MG TABLET PO ×3 (08:11→17:18)
[2022-02-14] MEDS: ASPIRIN 81 MG CHEWABLE TABLET PO (08:11)
[2022-02-14] MEDS: carvediloL 6.25 MG TABLET PO (08:11)
[2022-02-14] MEDS: PANTOPRAZOLE SODIUM IV 40 MG VIAL IV PUSH ×2 (08:11→20:48)
[2022-02-14] MEDS: FERROUS SULFATE 324 MG TABLET PO (08:11)
[2022-02-14] MEDS: SPIRONOLACTONE 50 MG TABLET PO (08:11)
[2022-02-14] MEDS: OCTREOTIDE ACETATE 100 MCG/ML VIAL SUB-Q ×3 (08:13→17:18)
[2022-02-14] MEDS: SILVERGEL (ELTA) 45 ML 1 APPLIC TOPICAL (08:14)
[2022-02-14] MEDS: DOXYCYCLINE 100 MG/NS 100 ML 100 MG/100 ML BAG IVPB ×2 (09:12→20:47)
--- NOTE | 2022-02-14 12:32 | PM.IMPN ---
Progress Note: A&P Assessment and Plan (1) Abdominal pain: Code(s): R10.9 - Unspecified abdominal pain Status: Acute Assessment and Plan: -fentanyl p.r.n. -1. 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 2. Cirrhosis with ill-defined 4 cm hypodense mass in segment 7 of the liver most likely metastatic carcinoid although could not exclude primary hepatocellular carcinoma. 3. Splenomegaly consistent with secondary portal venous hypertension. 4. Small amount of ascites in the abdomen and pelvis likely related to cirrhosis. -octreotide was continued -IM Bentyl p.r.n. -continue with IV Protonix. -continue with gabapentin for chronic pain 02/14/2022 interval history: patien with history of metastatic neuroendocrine cancer has developed abdominal pain, rectal bleeding and diarrhea on his last admission patient had a colonoscopy it showed several internal hemorrhoid and GI suspect cause of his bleeding, patient was seen by Hematology-Oncology and started the patient on Octreotid however as a outpatient patient was not able to get the medications, and presented emergency depart with abdominal pain, his medication started now and his pain is better, discussed with social service will plan for outpatient medication,social service is following with pharmacy,on 02/12 I was told his medication is now available at his pharmacy, also on 02/12 his white counts had dropped to 1.7 and his ANC was [address] Puri, I have started patient on filgrastim 480mcg q daily, on 02/13 his white counts are 8.5 and ANC was above 7000, stopped the medication , today is white counts are 9.5. patient blood culture is growing staphylococcus capitis not MRSA stopped the vancomycin and started doxycycline, will discuss with ID pharmacy on 02/16, continue to monitor and further recommendation to follow (2) Cirrhosis: Code(s): K74.60 - Unspecified cirrhosis of liver Status: Acute Assessment and Plan: -this is a chronic condition and patient is aware. -continue with spironolactone (3) Neuroendocrine cancer: Code(s): C7A.8 - Other malignant neuroendocrine tumors Status: Acute Assessment and Plan: The patient was seeing an outside oncologist but prefers to see the oncologist here. Oncology has been consulted here. Please see the CT above. He has metastatic endocrine cancer (4) HTN (hypertension) with goal to be determined: Code(s): I10 - Essential (primary) hypertension Status: Acute Assessment and Plan: -continue with Coreg -continue with hydralazine (5) Hypothyroidism: Code(s): E03.9 - Hypothyroidism, unspecified Status: Acute Assessment and Plan: -continue levothyroxine -check thyroid level. (6) Anxiety: Code(s): F41.9 - Anxiety disorder, unspecified Status: Acute Assessment and Plan: -continue with hydroxyzine (7) Chronic foot ulcer: Code(s): L97.509 - Non-pressure chronic ulcer of other part of unspecified foot with unspecified severity Status: Acute Assessment and Plan: -wound care has been consulted. (8) Anemia: Code(s): D64.9 - Anemia, unspecified Status: Acute Assessment and Plan: The patient had a GI workup in a colonoscopy. The patient was found to have bleeding hemorrhoids at that time. Continue to monitor H&H. Check stool for occult blood. Subjective Date/time seen: 02/14/22 12:32 02/14/2022 interval history: patien with history of metastatic neuroendocrine cancer has developed abdominal pain, rectal bleeding and diarrhea on his last admission patient had a colonoscopy it showed several internal hemorrhoid and GI suspect cause of his bleeding, patient was seen by Hematology-Oncology and started the patient on Octreotid however as a outpati
[2022-02-14] MEDS: PRAMIPEXOLE 0.125 MG TABLET PO (20:48)
[2022-02-14] MEDS: MELATONIN 5 MG TABLET PO (20:51)
[2022-02-15] MEDS: fentaNYL CITRATE INJ (*CRX) 100 MCG/2 ML VIAL 25 MCG IV PUSH ×2 (00:12→17:59)
[2022-02-15 00:44] LABS: Magnesium 1.4 mg/dL (1.6-2.3)
[2022-02-15 03:54] VITALS: BP 139/55; PULSE 58; RESP 18; TEMP 36.7; O2SAT 95
[2022-02-15] MEDS: LEVOTHYROXINE SODIUM 112 MCG TABLET PO (05:44)
[2022-02-15 05:56] LABS: Basophils Percent Auto 0.4 % (0.2-1.2); Eosinophils Absolute Auto 0.1 K/mm3 (0-0.3); Hematocrit 27.7 % (42.0-52.0); Hemoglobin 8.8 g/dL (14.0-18.0); Immature Granulocyte Absolute 0.03 K/mm3 (0.00-0.031); Immature Granulocyte Percent A 0.7 % (0-0.5); Immature Platelet Fraction Pct 5.1 % (0.9-11.2); Lymphocytes Absolute Auto 0.89 K/mm3 (0.9-3.2); Lymphocytes Percent Auto 19.5 % (18.3-44.2); Mean Corpuscular HGB Conc 31.8 g/dl (32-36); Mean Corpuscular Hemoglobin 26.3 pg (26-34); Mean Corpuscular Volume 82.7 fl (80-100); Mean Platelet Volume 10.8 fl (7.4-10.4); Monocytes Absolute Auto 0.4 K/mm3 (0.1-0.6); Monocytes Percent Auto 8.6 % (2.6-8.5); Neutrophils Absolute Auto 3.1 K/mm3 (1.3-6.7); Neutrophils Percent Auto 68.8 % (45.5-73.1); Platelet Count Result 94 k/mm3 (150-375); Red Blood Count 3.35 M/mm3 (4.6-6.20); Red Cell Distribution Width 17.5 % (11.5-14.5); White Blood Count 4.6 K/mm3 (4.5-10.0)
[2022-02-15 06:00] LABS: Alanine Aminotransferase 18 U/L (6-50); Albumin Level 3.6 g/dL (3.5-5.1); Alkaline Phosphatase 133 U/L (38-126); Anion Gap 6 mmol/L (8-16); Aspartate Amino Transferase 30 U/L (17-59); Bilirubin,Total 1.2 mg/dL (0.2-1.3); Blood Urea Nitrogen 14 mg/dL (9-20); Calcium 8.6 mg/dL (8.4-10.2); Carbon Dioxide 26 mmol/L (22-30); Chloride 106 mmol/L (98-107); Estimated CRCL calculation 77 ml/min; Estimated Glomerular Filt Rate 52; Glucose 107 mg/dL (65-110); Potassium 3.7 mmol/L (3.4-5.0); Sodium 138 mmol/L (137-145)
[2022-02-15 06:37] LABS: Anisocytosis 2+ (NORMAL); Ovalocytes 1+ (NORMAL); Platelet Estimate Decreased (Adequate); Poikilocytosis 2+ (NORMAL); Schistocytes Rare (NORMAL)
[2022-02-15 08:00] VITALS: BP 136/60; PULSE 58; RESP 18; TEMP 36.8; O2SAT 96
[2022-02-15 08:14] VITALS: PULSE 58
[2022-02-15] MEDS: hydrALAZINE HCL 50 MG TABLET PO ×3 (08:14→16:29)
[2022-02-15] MEDS: GABAPENTIN 400 MG CAPSULE PO (08:14)
[2022-02-15] MEDS: carvediloL 6.25 MG TABLET PO (08:14)
[2022-02-15] MEDS: SPIRONOLACTONE 50 MG TABLET PO (08:14)
[2022-02-15] MEDS: OCTREOTIDE ACETATE 100 MCG/ML VIAL SUB-Q ×3 (08:14→16:29)
[2022-02-15] MEDS: FERROUS SULFATE 324 MG TABLET PO (08:14)
[2022-02-15] MEDS: ASPIRIN 81 MG CHEWABLE TABLET PO (08:14)
[2022-02-15] MEDS: PANTOPRAZOLE SODIUM IV 40 MG VIAL IV PUSH ×2 (08:15→20:42)
[2022-02-15] MEDS: DOXYCYCLINE 100 MG/NS 100 ML 100 MG/100 ML BAG IVPB ×2 (08:18→20:42)
[2022-02-15 09:28] LABS: Glucose Point of Care 116 mg/dl (65-105)
[2022-02-15 12:00] VITALS: BP 120/70; PULSE 58; RESP 18; TEMP 36.7; O2SAT 99
[2022-02-15] MEDS: SILVERGEL (ELTA) 45 ML 1 APPLIC TOPICAL (12:16)
--- NOTE | 2022-02-15 12:33 | PM.IMPN ---
Progress Note: A&P Assessment and Plan (1) Abdominal pain: Code(s): R10.9 - Unspecified abdominal pain Status: Acute Assessment and Plan: -fentanyl p.r.n. -1. 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 2. Cirrhosis with ill-defined 4 cm hypodense mass in segment 7 of the liver most likely metastatic carcinoid although could not exclude primary hepatocellular carcinoma. 3. Splenomegaly consistent with secondary portal venous hypertension. 4. Small amount of ascites in the abdomen and pelvis likely related to cirrhosis. -octreotide was continued -IM Bentyl p.r.n. -continue with IV Protonix. -continue with gabapentin for chronic pain 02/15/2022 interval history: patient with history of metastatic neuroendocrine cancer has developed abdominal pain, rectal bleeding and diarrhea on his last admission patient had a colonoscopy it showed several internal hemorrhoid and GI suspect cause of his bleeding, patient was seen by Hematology-Oncology and started the patient on Octreotid however as a outpatient patient was not able to get the medications, and presented emergency depart with abdominal pain, his medication started now and his pain is better, discussed with social service will plan for outpatient medication,social service is following with pharmacy,on 02/12 I was told his medication is now available at his pharmacy, also on 02/12 his white counts had dropped to 1.7 and his ANC was [address] Puri, I have started patient on filgrastim 480mcg q daily, on 02/13 his white counts are 8.5 and ANC was above 7000, stopped the medication , today is white counts are trending down 4.6 and however his ANC is 3000. patient blood culture is growing staphylococcus capitis not MRSA stopped the vancomycin and started doxycycline, will discuss with ID pharmacy on 02/16, continue to monitor and further recommendation to follow (2) Cirrhosis: Code(s): K74.60 - Unspecified cirrhosis of liver Status: Acute Assessment and Plan: -this is a chronic condition and patient is aware. -continue with spironolactone (3) Neuroendocrine cancer: Code(s): C7A.8 - Other malignant neuroendocrine tumors Status: Acute Assessment and Plan: The patient was seeing an outside oncologist but prefers to see the oncologist here. Oncology has been consulted here. Please see the CT above. He has metastatic endocrine cancer (4) HTN (hypertension) with goal to be determined: Code(s): I10 - Essential (primary) hypertension Status: Acute Assessment and Plan: -continue with Coreg -continue with hydralazine (5) Hypothyroidism: Code(s): E03.9 - Hypothyroidism, unspecified Status: Acute Assessment and Plan: -continue levothyroxine -check thyroid level. (6) Anxiety: Code(s): F41.9 - Anxiety disorder, unspecified Status: Acute Assessment and Plan: -continue with hydroxyzine (7) Chronic foot ulcer: Code(s): L97.509 - Non-pressure chronic ulcer of other part of unspecified foot with unspecified severity Status: Acute Assessment and Plan: -wound care has been consulted. (8) Anemia: Code(s): D64.9 - Anemia, unspecified Status: Acute Assessment and Plan: The patient had a GI workup in a colonoscopy. The patient was found to have bleeding hemorrhoids at that time. Continue to monitor H&H. Check stool for occult blood. Subjective Date/time seen: 02/15/22 12:33 -fentanyl p.r.n. -1. 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 2. Cirrhosis with ill-defined 4 cm hypodense mass in segment 7 of the liver most likely metastatic carcinoid although c
[2022-02-15 16:00] VITALS: BP 117/73; PULSE 58; RESP 18; TEMP 36.6; O2SAT 99
[2022-02-15] MEDS: hydrOXYzine pamoate 25 MG CAPSULE PO (17:59)
[2022-02-15 20:00] VITALS: BP 137/52; PULSE 54; RESP 20; TEMP 36.9; O2SAT 96
[2022-02-15] MEDS: MELATONIN 5 MG TABLET PO (20:42)
[2022-02-15] MEDS: PRAMIPEXOLE 0.125 MG TABLET PO (20:42)
[2022-02-16] VITALS: BP 132/52; PULSE 81; RESP 20; TEMP 36.6; O2SAT 98
[2022-02-16 01:22] LABS: Magnesium 1.5 mg/dL (1.6-2.3)
[2022-02-16 04:00] VITALS: BP 156/77; PULSE 58; RESP 20; TEMP 36.9; O2SAT 100
[2022-02-16] MEDS: fentaNYL CITRATE INJ (*CRX) 100 MCG/2 ML VIAL 25 MCG IV PUSH ×2 (05:06→21:34)
[2022-02-16] MEDS: hydrOXYzine pamoate 25 MG CAPSULE PO ×2 (05:06→21:32)
[2022-02-16 06:06] LABS: Basophils Percent Auto 1.2 % (0.2-1.2); Eosinophils Absolute Auto 0.1 K/mm3 (0-0.3); Eosinophils Percent Auto 3.5 % (0-4.4); Hematocrit 27.4 % (42.0-52.0); Hemoglobin 8.5 g/dL (14.0-18.0); Immature Granulocyte Absolute 0.02 K/mm3 (0.00-0.031); Immature Granulocyte Percent A 0.8 % (0-0.5); Immature Platelet Fraction Pct 4.9 % (0.9-11.2); Lymphocytes Absolute Auto 0.78 K/mm3 (0.9-3.2); Mean Corpuscular Hemoglobin 25.9 pg (26-34); Mean Corpuscular Volume 83.5 fl (80-100); Mean Platelet Volume 10.4 fl (7.4-10.4); Monocytes Absolute Auto 0.2 K/mm3 (0.1-0.6); Monocytes Percent Auto 9.2 % (2.6-8.5); Neutrophils Absolute Auto 1.4 K/mm3 (1.3-6.7); Neutrophils Percent Auto 55.3 % (45.5-73.1); Platelet Count Result 91 k/mm3 (150-375); Red Blood Count 3.28 M/mm3 (4.6-6.20); Red Cell Distribution Width 17.3 % (11.5-14.5); White Blood Count 2.6 K/mm3 (4.5-10.0)
[2022-02-16] MEDS: LEVOTHYROXINE SODIUM 112 MCG TABLET PO (06:07)
[2022-02-16 06:13] LABS: Alanine Aminotransferase 16 U/L (6-50); Albumin Level 3.6 g/dL (3.5-5.1); Alkaline Phosphatase 112 U/L (38-126); Anion Gap 6 mmol/L (8-16); Aspartate Amino Transferase 27 U/L (17-59); Bilirubin,Total 1.1 mg/dL (0.2-1.3); Blood Urea Nitrogen 14 mg/dL (9-20); Calcium 8.3 mg/dL (8.4-10.2); Carbon Dioxide 24 mmol/L (22-30); Chloride 103 mmol/L (98-107); Estimated CRCL calculation 82 ml/min; Estimated Glomerular Filt Rate 57; Glucose 104 mg/dL (65-110); Potassium 3.5 mmol/L (3.4-5.0); Sodium 133 mmol/L (137-145)
[2022-02-16 07:11] LABS: Ovalocytes 1+ (NORMAL); Poikilocytosis 1+ (NORMAL); Tear Drop Cells 1+ (NORMAL)
[2022-02-16 07:12] LABS: Schistocytes 1+ (NORMAL)
[2022-02-16 07:13] LABS: Anisocytosis 1+ (NORMAL)
[2022-02-16] MEDS: DOXYCYCLINE 100 MG/NS 100 ML 100 MG/100 ML BAG IVPB ×2 (08:26→21:31)
[2022-02-16] MEDS: OCTREOTIDE ACETATE 100 MCG/ML VIAL SUB-Q ×3 (08:28→16:18)
[2022-02-16] MEDS: SPIRONOLACTONE 50 MG TABLET PO (08:28)
[2022-02-16] MEDS: ASPIRIN 81 MG CHEWABLE TABLET PO (08:28)
[2022-02-16 08:29] VITALS: PULSE 53
[2022-02-16] MEDS: carvediloL 6.25 MG TABLET PO (08:29)
[2022-02-16] MEDS: GABAPENTIN 400 MG CAPSULE PO (08:29)
[2022-02-16] MEDS: FERROUS SULFATE 324 MG TABLET PO (08:29)
[2022-02-16] MEDS: SILVERGEL (ELTA) 45 ML 1 APPLIC TOPICAL (08:30)
[2022-02-16] MEDS: PANTOPRAZOLE SODIUM IV 40 MG VIAL IV PUSH ×2 (08:30→21:32)
[2022-02-16] MEDS: hydrALAZINE HCL 50 MG TABLET PO ×2 (12:55→16:18)
[2022-02-16 14:00] VITALS: BP 120/59; PULSE 56; RESP 22; TEMP 36.4; O2SAT 98
--- NOTE | 2022-02-16 17:51 | PM.IMPN ---
Progress Note: A&P Assessment and Plan (1) Abdominal pain: Code(s): R10.9 - Unspecified abdominal pain Status: Acute Assessment and Plan: -fentanyl p.r.n. -1. 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 2. Cirrhosis with ill-defined 4 cm hypodense mass in segment 7 of the liver most likely metastatic carcinoid although could not exclude primary hepatocellular carcinoma. 3. Splenomegaly consistent with secondary portal venous hypertension. 4. Small amount of ascites in the abdomen and pelvis likely related to cirrhosis. -octreotide was continued -IM Bentyl p.r.n. -continue with IV Protonix. -continue with gabapentin for chronic pain 02/16/2022 interval history:?patient with history of metastatic neuroendocrine cancer has developed abdominal pain, rectal bleeding and diarrhea on his? last admission patient had a colonoscopy it showed several internal hemorrhoid and GI suspect cause of his bleeding,? patient was seen by Hematology-Oncology and started the patient on Octreotid? however as a outpatient patient was not able to get the medications,? and presented emergency depart with abdominal pain, his medication started now? and his pain is better, discussed with social service will plan for outpatient medication,social service is following with pharmacy,on 02/12? I was told his medication is now available at his pharmacy, also on 02/12 his white counts had dropped to 1.7 and his ANC was [address] Puri, I have started patient on filgrastim 480mcg q daily, on 02/13? his white counts are 8.5 and ANC was above 7000,? stopped? the medication , today is white counts are trending down? 4.6 and however his ANC is 3000.? patient blood culture is growing staphylococcus capitis not MRSA? stopped the vancomycin and started doxycycline,? will discuss with ID pharmacy on 02/16, continue to monitor and further recommendation to follow patient remains clinically stable was seen by Oncology evaluated the patient and suggested low white count secondary to liver cirrhosis continue to monitor. (2) Cirrhosis: Code(s): K74.60 - Unspecified cirrhosis of liver Status: Acute Assessment and Plan: -this is a chronic condition and patient is aware. -continue with spironolactone (3) Neuroendocrine cancer: Code(s): C7A.8 - Other malignant neuroendocrine tumors Status: Acute Assessment and Plan: The patient was seeing an outside oncologist but prefers to see the oncologist here. Oncology has been consulted here. Please see the CT above. He has metastatic endocrine cancer (4) HTN (hypertension) with goal to be determined: Code(s): I10 - Essential (primary) hypertension Status: Acute Assessment and Plan: -continue with Coreg -continue with hydralazine (5) Hypothyroidism: Code(s): E03.9 - Hypothyroidism, unspecified Status: Acute Assessment and Plan: -continue levothyroxine -check thyroid level. (6) Anxiety: Code(s): F41.9 - Anxiety disorder, unspecified Status: Acute Assessment and Plan: -continue with hydroxyzine (7) Chronic foot ulcer: Code(s): L97.509 - Non-pressure chronic ulcer of other part of unspecified foot with unspecified severity Status: Acute Assessment and Plan: -wound care has been consulted. (8) Anemia: Code(s): D64.9 - Anemia, unspecified Status: Acute Assessment and Plan: The patient had a GI workup in a colonoscopy. The patient was found to have bleeding hemorrhoids at that time. Continue to monitor H&H. Check stool for occult blood. Subjective Date/time seen: 02/16/22 17:51 1. 10.1 x 5.6 x 7.2 cm lobular partially calcified mesenteric mass with surrounding mesenteric lymphadenopathy consistent with reported metastatic neuroendocrine tu
--- NOTE | 2022-02-16 17:54 | WPDONCPN ---
Progress Note: A/P - Additional Plan no need at this time for Neupogen will follow as outpatient to monitor cbc and continue therapy with Somatostatin analogue - Time Spent With Patient Total time spent is greater than 50% in coordination of care (as documented) at patient's floor/unit and/or counseling patient: less than 15 minutes Subjective Interval history: Pt known with metastatic carcinoid Low WBC count is appreciated m/p secondary to cirrhosis No evidence of sepsis no new complaits Review of Systems - Review of Systems All systems reviewed & are unremarkable except as noted in HPI and bel - Neurologic Reports system reviewed and no additional complaints, except as documented, Reports hearing normal Exam Vital signs: Temp Pulse Resp BP Pulse Ox O2 Del Method 36.4 C 56 L 22 H 120/59 L 98 Room Air 02/16/22 14:00 02/16/22 14:00 02/16/22 14:00 02/16/22 14:00 02/16/22 14:00 02/16/22 09:20 - Constitutional no acute distress - Routine HEENT Exam Head: Present: atraumatic - Routine Neck Exam Present: full ROM PN: Objective Data - Labs CBC & Chem 7: 02/16/22 05:33 02/16/22 05:33 Labs: Laboratory Results - last 24 hr 02/16/22 02/16/22 02/16/22 00:30 05:33 05:33 WBC 2.6 L RBC 3.28 L Hgb 8.5 L Hct 27.4 L MCV 83.5 MCH 25.9 L MCHC 31.0 L RDW 17.3 H Plt Count 91 L MPV 10.4 Immature Gran % (Auto) 0.8 H Neut % (Auto) 55.3 Lymph % (Auto) 30.0 Hubbard % (Auto) 9.2 H Eos % (Auto) 3.5 Baso % (Auto) 1.2 Lymph # (Auto) 0.78 L Hubbard # (Auto) 0.2 Eos # (Auto) 0.1 Baso # (Auto) 0.0 Abs Immat Gran (auto) 0.02 Absolute Neuts (auto) 1.4 Absolute Nucleated RBC 0.0 Nucleated RBC % 0.0 Platelet Estimate Slightly decreased % Immature Plt Fraction 4.9 Poikilocytosis 1+ Anisocytosis 1+ Tear Drop Cells 1+ Ovalocytes 1+ Schistocytes 1+ Sodium 133 L Potassium 3.5 Chloride 103 Carbon Dioxide 24 Anion Gap 6 L BUN 14 Creatinine 1.30 Estim Creat Clear Calc 82 Estimated GFR 57 L Glucose 104 Calcium 8.3 L Magnesium 1.5 L Total Bilirubin 1.1 AST 27 ALT 16 Alkaline Phosphatase 112 Total Protein 8.0 Albumin 3.6
[2022-02-16 18:55] VITALS: BP 136/70; PULSE 60; RESP 20; TEMP 36.3; O2SAT 98
[2022-02-16] MEDS: MELATONIN 5 MG TABLET PO (21:32)
[2022-02-16] MEDS: PRAMIPEXOLE 0.125 MG TABLET PO (21:36)
[2022-02-16 22:41] VITALS: BP 142/72; PULSE 59; RESP 20; TEMP 36.3; O2SAT 99
[2022-02-17 00:47] LABS: Magnesium 1.5 mg/dL (1.6-2.3)
[2022-02-17 02:22] VITALS: BP 158/77; PULSE 58; RESP 20; TEMP 36.2; O2SAT 99
[2022-02-17] MEDS: fentaNYL CITRATE INJ (*CRX) 100 MCG/2 ML VIAL 25 MCG IV PUSH (02:35)
[2022-02-17] MEDS: LEVOTHYROXINE SODIUM 112 MCG TABLET PO (05:51)
[2022-02-17 06:00] VITALS: BP 140/57; PULSE 53; RESP 20; TEMP 37.2; O2SAT 99
[2022-02-17 06:00] LABS: Basophils Percent Auto 0.5 % (0.2-1.2); Eosinophils Absolute Auto 0.1 K/mm3 (0-0.3); Eosinophils Percent Auto 2.9 % (0-4.4); Hematocrit 28.7 % (42.0-52.0); Hemoglobin 9.1 g/dL (14.0-18.0); Immature Granulocyte Absolute 0.02 K/mm3 (0.00-0.031); Immature Platelet Fraction Pct 4.3 % (0.9-11.2); Lymphocytes Absolute Auto 0.72 K/mm3 (0.9-3.2); Mean Corpuscular HGB Conc 31.7 g/dl (32-36); Mean Corpuscular Hemoglobin 26.4 pg (26-34); Mean Corpuscular Volume 83.2 fl (80-100); Mean Platelet Volume 10.3 fl (7.4-10.4); Monocytes Absolute Auto 0.2 K/mm3 (0.1-0.6); Monocytes Percent Auto 9.2 % (2.6-8.5); Neutrophils Absolute Auto 1.1 K/mm3 (1.3-6.7); Neutrophils Percent Auto 51.4 % (45.5-73.1); Platelet Count Result 98 k/mm3 (150-375); Red Blood Count 3.45 M/mm3 (4.6-6.20); Red Cell Distribution Width 17.4 % (11.5-14.5); White Blood Count 2.1 K/mm3 (4.5-10.0)
[2022-02-17 06:09] LABS: Alanine Aminotransferase 17 U/L (6-50); Albumin Level 3.9 g/dL (3.5-5.1); Alkaline Phosphatase 123 U/L (38-126); Anion Gap 7 mmol/L (8-16); Aspartate Amino Transferase 30 U/L (17-59); Bilirubin,Total 1.4 mg/dL (0.2-1.3); Blood Urea Nitrogen 13 mg/dL (9-20); Calcium 8.9 mg/dL (8.4-10.2); Carbon Dioxide 25 mmol/L (22-30); Chloride 105 mmol/L (98-107); Estimated CRCL calculation 76 ml/min; Estimated Glomerular Filt Rate 52; Glucose 107 mg/dL (65-110); Potassium 3.9 mmol/L (3.4-5.0); Sodium 137 mmol/L (137-145)
[2022-02-17 06:36] LABS: Poikilocytosis 1+ (NORMAL)
[2022-02-17 06:37] LABS: Ovalocytes 1+ (NORMAL); Schistocytes 1+ (NORMAL)
[2022-02-17] MEDS: DOXYCYCLINE 100 MG/NS 100 ML 100 MG/100 ML BAG IVPB (08:35)
[2022-02-17] MEDS: OCTREOTIDE ACETATE 100 MCG/ML VIAL SUB-Q ×3 (08:36→16:03)
[2022-02-17] MEDS: hydrALAZINE HCL 50 MG TABLET PO ×3 (08:36→16:03)
[2022-02-17 08:37] VITALS: PULSE 57
[2022-02-17] MEDS: carvediloL 6.25 MG TABLET PO (08:37)
[2022-02-17] MEDS: SILVERGEL (ELTA) 45 ML 1 APPLIC TOPICAL (08:37)
[2022-02-17] MEDS: FERROUS SULFATE 324 MG TABLET PO (08:37)
[2022-02-17] MEDS: ASPIRIN 81 MG CHEWABLE TABLET PO (08:37)
[2022-02-17] MEDS: GABAPENTIN 400 MG CAPSULE PO (08:37)
[2022-02-17] MEDS: PANTOPRAZOLE SODIUM IV 40 MG VIAL IV PUSH (08:37)
[2022-02-17] MEDS: SPIRONOLACTONE 50 MG TABLET PO (08:38)
[2022-02-17 09:16] VITALS: BP 147/78; PULSE 52; RESP 16; TEMP 36.6; O2SAT 100
--- NOTE | 2022-02-17 12:03 | PM.DS ---
DS: Admitting Diagnosis Discharge Date 02/17/2022 Admitting Diagnosis Abdominal pain DS: Summary Hospital Course Reason for hospitalization: Chief Complaint: Abdominal pain Narrative: This is a 56-year-old male patient to has a history of neuroendocrine cancer, hypertension and hyperlipidemia as well as cirrhosis of the liver.? Patient presented to the emergency room with complaints of abdominal pain.? The patient was last discharged from here on 02/06/2022.? The patient was discharged with octreotide and was not able to fill the prescription.? The patient recently had a colonoscopy on 02/01/2022 which showed several internal hemorrhoids and GI suspected this was the cause of his bleeding.? The patient continues to have abdominal cramps most likely related to the neuroendocrine tumor.? The patient does have an oncologist elsewhere however the patient stated that he would rather see the oncologist here.? Wound Care had been consulted for a half-dollar size ulcerated area on the left foot.? Patient has been complaining of dizziness onset was 02/05/2022.? The patient had a CT of the brain which was negative and an MRI which came back never had negative the patient was tried on meclizine.? However today his heart rates in the 50s and 60s which is his baseline.? The patient was complaining of dizziness today.? WBCs 3.0 H&H is 7.8 and 24.9 his last H&H was 9.3 and 29.7 on 02/06/2022.? APTT is 39.4.? Sodium is 135.? Troponin 0.056.? Urine is negative.? Influenza A/B and COVID is negative.? IV fluids were started in the emergency room and he was given IV Tylenol.? I also started him on octreotide.? Oncology has been consulted.? The patient is being admitted for observation status on the date of service 02/09/2022 Hospital Course: patient with history of metastatic neuroendocrine cancer has developed abdominal pain, rectal bleeding and diarrhea on his? last admission patient had a colonoscopy it showed several internal hemorrhoid and GI suspect cause of his bleeding,? patient was seen by Hematology-Oncology and started the patient on Octreotid? however as a outpatient patient was not able to get the medications,? and presented emergency depart with abdominal pain, his medication started now? and his pain is better, discussed with social service will plan for outpatient medication,social service is following with pharmacy,on 02/12? I was told his medication is now available at his pharmacy, also on 02/12 his white counts had dropped to 1.7 and his ANC was [address] Puri, I have started patient on filgrastim 480mcg q daily, on 02/13? his white counts are 8.5 and ANC was above 7000,? stopped? the medication , today is white counts are trending down? 4.6 and however his ANC is 3000.? patient blood culture is growing staphylococcus capitis not MRSA? stopped the vancomycin and started doxycycline,? will discuss with ID pharmacy on 02/16, continue to monitor and further recommendation to follow ?patient remains clinically stable was seen by Oncology evaluated the patient and suggested low white count secondary to liver cirrhosis continue to monitor. today patient remained clinically stable will discharge the patient today Time Spent with Patient Time attestation: Total time spent providing and/or coordinating discharge services: Exam Narrative: moderately obese Patient is comfortable, NAD HEENT: eyes are clear and none icteric LUNGS: normal respiratory effort ABD:? distended Lower extremities: no edema SKIN: nonjaundiced Neuro: grossly intact. DS: Data Data Completed and Pending Labs on day of discharge: Labs from last 24 hours 02/17/22 02/17/22 02/17/22 05:31 05:31 00:25 WBC 2.1 L RBC 3.45 L Hgb 9.1 L Hct 28.7 L MCV 83.2 MCH 26.4 MCHC 31.7 L RDW 17.4 H Plt Count 98 L MPV 10.3 Immature Gran % (Auto) 1.0 H Neut % (Auto) 51.4 Lymph % (Auto) 35.0 Tift % (Auto) 9.2 H Eos % (Auto) 2.9
[2022-02-17 14:22] VITALS: BP 144/61; PULSE 56; RESP 16; TEMP 36.5; O2SAT 95
== END 2022-02-17 17:08 | disposition home or self-care (01) | DRG 694 ==
LOC: ANHED 17:13 → ANHIMU 20:33 → ANH2MED 02-11 19:00
PROVIDERS: Nurse Practitioner; Admitting Provider Internal Medicine; Emergency Provider Emergency Medicine; PCP Nurse Practitioner Family; Visit Provider Family Medicine
DX: C7A.8 Other malignant neuroendocrine tumors (principal); D61.818 Other pancytopenia; I95.9 Hypotension, unspecified; E11.621 Type 2 diabetes mellitus with foot ulcer; C78.7 Secondary malignant neoplasm of liver and intrahepatic bile duct; B95.7 Other staphylococcus as the cause of diseases classified elsewhere; K74.60 Unspecified cirrhosis of liver; L97.429 Non-pressure chronic ulcer of left heel and midfoot with unspecified severity; E03.9 Hypothyroidism, unspecified; F41.9 Anxiety disorder, unspecified; Z20.822 Contact with and (suspected) exposure to COVID-19; I10 Essential (primary) hypertension; K64.8 Other hemorrhoids; E78.5 Hyperlipidemia, unspecified; Z89.511 Acquired absence of right leg below knee; E66.9 Obesity, unspecified; Z68.34 Body mass index [BMI] 34.0-34.9, adult
CPT/HCPCS: 36415; 74177; 80053; 81001; 82274; 82728; 82948; 83605; 83690; 83735; 84443; 84484; 85014; 85018; 85025; 85055; 85610; 85730; 87040; 87077; 87186; 87636; 93005; 96365; 96372; 96374; 96375; 96376; 99285; A9270; C9113; G0378; G0379; J0131; J2354; J3010; J3370; J7030; Q5101; Q9967

== ENCOUNTER 2022-05-05 18:00 | Inpatient (IN) | payer OTHER, SELFPAY ==
[2022-05-05] VITALS (23 sets, daily range): BP systolic 153–192; BP diastolic 85–110; PULSE 70–93; RESP 13–19; TEMP 36.1–36.4; O2SAT 98–100; BMI 39.4
--- NOTE | ~2022-05-05 | US_ITS ---
Limited Abdominal Sonogram: Real-time sonographic imaging of the right upper quadrant was performed. Clinical History: Hydrops gallbladder Findings: The liver is small and nodular in contour, compatible cirrhosis. No focal mass or biliary dilatation evident. Main portal vein demonstrates normal direction of flow. The gallbladder is well d istended, and contains gallbladder sludge. No definite gallbladder wall thickening. The common bile d uct measures 4 mm. The pancreas, aorta, and IVC are obscured by bowel gas shadowing. Moderate perihe patic ascites present. Impression: Cirrhotic liver with moderate perihepatic ascites. Gallbladder sludge. Reviewed, dictated and finalized at location . Impression: Cirrhotic liver with moderate perihepatic ascites. Gallbladder sludge.
--- NOTE | ~2022-05-05 | US_ITS ---
EXAMINATION: US paracentesis abd w/image DATE: 05/06/2022 13:16 INDICATION: Ascites. TECHNIQUE: The procedure and its risks, benefits, and alternatives were discussed with the patient. P otential risks discussed included bleeding and infection. The skin was prepped and draped in sterile fashion. 1% lidocaine was used for local anesthesia. Under ultrasound guidance, a 5 Fr catheter with trochar was advanced into the ascites in the left lower quadrant. Fluid was aspirated. The catheter w as removed, and a dressing was applied. There were no immediate complications. FINDINGS: Ultrasound images demonstrate ascites and the catheter within the fluid. IMPRESSION: 1. Successful ultrasound-guided paracentesis yielding 5000 mL of yellow fluid. Reviewed, dictated and finalized at location A.
--- NOTE | ~2022-05-05 | CT_ITS ---
EXAMINATION: CT abdomen pelvis w con DATE: 05/05/2022 20:35 INDICATION: carcinoid tumor w/ abdominal distention TECHNIQUE: Computed tomography (CT) of the abdomen and pelvis was performed with 100 mL Omnipaque-350 intravenous contrast. Automated exposure control and iterative reconstruction technique were employe d. The dose-length product was 1916.99 mGy-cm. COMPARISON: 02/09/2022. FINDINGS: Lower thorax: Calcified pulmonary granulomas. Bibasilar scar/atelectasis. Calcified hilar nodes. Liver: 4.1 cm hypodense right lobe mass. Nodular border. Biliary/Gallbladder: Distended gallbladder. Calcifications in the cystic duct. No bile duct dilation. Pancreas: No mass or duct dilation. Spleen: Enlarged. Adrenals:No mass. Kidneys: No mass, stone, or hydronephrosis. Simple right lower pole cyst. Subcentimeter left lower po le hypodensity too small to characterize but most likely represents a cyst. 2 mm nonobstructing right lower pole calculus. GI tract: No small or large bowel dilation. Appendix surgically absent. Diverticulosis without divert iculitis. Mesentery/Peritoneum: 8.7 cm lobular calcified mesenteric mass. Large volume ascites. Retroperitoneum: No mass. Atherosclerotic abdominal aortic and/or arterial calcifications.. Periaorti c lymphadenopathy. Pelvis: Pelvic organs are within normal limits. Soft Tissues: Uncomplicated bilateral fat-containing inguinal hernias. Diffuse subcutaneous edema. Le ft lower quadrant emphysema likely from injections. Bones: No acute osseous finding. IMPRESSION: Large volume abdominal ascites. Cirrhosis with portal hypertension. Grossly stable indeterminate righ t liver lobe mass. Gallbladder hydrops with cholelithiasis. Grossly stable mesenteric mass, likely ca rcinoid. Stable mesenteric lymphadenopathy. Diffuse body wall edema. Reviewed, dictated and finalized at location K. IMPRESSION: Large volume abdominal ascites. Cirrhosis with portal hypertension. Grossly sta ble indeterminate right liver lobe mass. Gallbladder hydrops with cholelithiasi s. Grossly stable mesenteric mass, likely carcinoid. Stable mesenteric lymphade nopathy. Diffuse body wall edema.
--- NOTE | ~2022-05-05 | US_ITS ---
EXAMINATION: US paracentesis abd w/image DATE: 05/10/2022 14:41 INDICATION: Recurrent ascites TECHNIQUE: The procedure and its risks and benefits were discussed with the patient. Potential risks discussed included bleeding and infection. The skin was prepped and draped in sterile fashion. 1% lid ocaine was used for local anesthesia. Under ultrasound guidance, a 5 Fr catheter with trochar was adv anced into the ascites in the right lower quadrant. Fluid was aspirated into vacuum bottles. The cath eter was removed, and a dressing was applied. There were no immediate complications. FINDINGS: Ultrasound images demonstrate ascites and the catheter within the fluid. IMPRESSION: 1. Successful ultrasound-guided paracentesis yielding 5000 mL of cloudy yellowish fluid. Reviewed, dictated and finalized at location A. IMPRESSION: 1. Successful ultrasound-guided paracentesis yielding 5000 mL of cloudy yellow guicho fluid.
[2022-05-05 18:36] LABS: Basophils Percent Auto 0.3 % (0.2-1.2); Eosinophils Percent Auto 0.5 % (0-4.4); Hematocrit 25.2 % (42.0-52.0); Hemoglobin 8.1 g/dL (14.0-18.0); Immature Granulocyte Absolute 0.01 K/mm3 (0.00-0.031); Immature Granulocyte Percent A 0.3 % (0-0.5); Lymphocytes Absolute Auto 0.74 K/mm3 (0.9-3.2); Lymphocytes Percent Auto 19.1 % (18.3-44.2); Mean Corpuscular HGB Conc 32.1 g/dl (32-36); Mean Corpuscular Hemoglobin 27.9 pg (26-34); Mean Corpuscular Volume 86.9 fl (80-100); Mean Platelet Volume 9.4 fl (7.4-10.4); Monocytes Absolute Auto 0.2 K/mm3 (0.1-0.6); Monocytes Percent Auto 6.2 % (2.6-8.5); Neutrophils Absolute Auto 2.9 K/mm3 (1.3-6.7); Neutrophils Percent Auto 73.6 % (45.5-73.1); Platelet Count Result 106 k/mm3 (150-375); Red Cell Distribution Width 21.1 % (11.5-14.5); White Blood Count 3.9 K/mm3 (4.5-10.0)
[2022-05-05 18:51] LABS: Alanine Aminotransferase 17 U/L (6-50); Albumin Level 3.6 g/dL (3.5-5.1); Alkaline Phosphatase 124 U/L (38-126); Anion Gap 6 mmol/L (8-16); Aspartate Amino Transferase 39 U/L (17-59); Bilirubin,Total 4.6 mg/dL (0.2-1.3); Blood Urea Nitrogen 18 mg/dL (9-20); Calcium 8.7 mg/dL (8.4-10.2); Carbon Dioxide 26 mmol/L (22-30); Chloride 105 mmol/L (98-107); Estimated Glomerular Filt Rate 36; Glucose 124 mg/dL (65-110); Lipase 125 U/L (23-300); Potassium 3.8 mmol/L (3.4-5.0); Sodium 137 mmol/L (137-145)
[2022-05-05 20:15] LABS: Bacteria Urine None Seen /hpf; Hyaline Casts Urine Present /lpf; Need Manual Microscopic Reviewed; RBC Urine 21-50 /hpf (0-2); Squamous Epithelial Cell Urine None seen /hpf (Few); WBC Urine 0-5 /hpf
[2022-05-05 20:19] LABS: Appearance Urine Cloudy (Clear); Bilirubin Urine 3+ (Negative); Blood Urine 3+ (Negative); Color Urine Orange (Yellow); Glucose Urine UA Negative (Negative); Ketones Urine Negative (Negative); Leukocyte Esterase Ur 1+ LEU/UL (Negative); Nitrate Urine Positive (Negative); Protein Urine 2+ mg/dL (Negative)
[2022-05-05 20:20] LABS: Add Urine Microscopic? YES
[2022-05-05] MEDS: SODIUM CHLORIDE 0.9% IV 1,000 ML 999 ML IV CONT (20:39)
[2022-05-05] MEDS: HYDROmorphone HCL INJ (*CRX) 1 MG/ML SYR 0.5 MG IV PUSH (20:40)
--- NOTE | 2022-05-05 20:47 | ED.GENADULT ---
HPI - General Adult General Chief complaint: Abdominal Pain Stated complaint: ABD distention Time Seen by Provider: 05/05/22 19:15 History of Present Illness HPI narrative: this is a 57-year-old male with a history of neuroendocrine tumor of the stomach presenting with gradual abdominal distension. Patient says that his abdomen is getting more more distended over the last 3 weeks. The patient says that his abdomen is distended but also diffusely tender with a burning sensation. It is nonradiating, 10 out 10 intensity and has been gradually getting worse. He has never had pain like this before there are no exacerbating or alleviating factors. His last bowel movement was this morning and it was a dark stool. He denies fever, chills, nausea vomiting. He does note that his urine has been red tinged without dysuria urgency or frequency. Patient's oncologist is Dr. Puri Related Data Home Medications Medication Instructions Recorded Confirmed aspirin 81 mg chewable tablet 81 mg PO DAILY 01/30/22 02/10/22 carvedilol 6.25 mg tablet 6.25 mg PO DAILY 01/30/22 02/10/22 ferrous sulfate 325 mg (65 mg 325 mg PO DAILY 01/30/22 02/10/22 iron) tablet (FeroSul) gabapentin 400 mg capsule 400 mg PO DAILY 01/30/22 02/10/22 levothyroxine 112 mcg tablet 112 mcg PO DAILY 01/30/22 02/10/22 omeprazole 40 mg capsule,delayed 40 mg PO DAILY 01/30/22 02/10/22 release pramipexole 0.125 mg tablet 0.125 mg PO HS 01/30/22 02/10/22 spironolactone 50 mg tablet 50 mg PO DAILY 01/30/22 02/10/22 Allergies Allergy/AdvReac Type Severity Reaction Status Date / Time meperidine Allergy Intermediate Hives / Verified 05/05/22 19:24 Red Face morphine Allergy Intermediate Hives / Verified 05/05/22 19:24 Red Face Penicillins Allergy Intermediate Hives / Verified 05/05/22 19:24 Red Face PMFSH Past Medical History Medical History (Updated 05/05/22 @ 21:51 by Aiden Gómez MD) HTN (hypertension) with goal to be determined Hypothyroidism Neuroendocrine cancer Pancytopenia Right below-knee amputee Surgical History Surgical History H/O hernia repair H/O shoulder surgery Family History Family History Mother Diabetes mellitus Cancer Father Diabetes mellitus Heart disease Social History Social History Social History: The patient is and has 2 children. He is Disabled. He has 2 children of the durable power animal care provider for healthcare. The patient stated he never smoked. He does not use any alcohol marijuana illicit drugs. Code status DNR Smoking status: Never smoker Second hand tobacco smoke exposure: No Alcohol intake: unknown Substance use: unknown Lack of Transportation: No Lack of Food: Never True Current Housing: I Have Housing Concerned About Future Housing: No Difficulty Paying Gas/Electric Bills: No Difficulty Paying for Meds: No Currently Unemployed: No Education: Decline to Answer Difficulty w/ Childcare or Family Care: No Spiritual care concerns: No Exam Narrative: APPEARANCE: Jaundice male, appears older than stated age Head: atraumatic. EYES: EOMI, NOSE: Atraumatic NECK: Trachea midline RESPIRATORY: No increased rate of breathing CARDIOVASCULAR: RRR, ABDOMINAL: abdomen is distended with diffuse tenderness MUSCULOSKELETAl: No obvious deformities NEURO: Alert. Moving 4/4 extremities SKIN:: Warm, dry. Normal color PSYCHIATRIC: Normal affect Course Vital Signs Vital signs: Vital Signs Temperature 97 F L 05/05/22 18:11 Pulse Rate 93 05/05/22 18:11 Respiratory Rate 16 05/05/22 18:11 Blood Pressure 178/100 H 05/05/22 18:11 Pulse Oximetry 100 05/05/22 18:11 Oxygen Delivery Room Air 05/05/22 18:11 Temperature 97 F L 05/05/22 18:11 Pulse Rate 73 05/05/22 21:12 Re
[2022-05-05] MEDS: PANTOPRAZOLE SODIUM IV 40 MG VIAL 80 MG IV PUSH (21:40)
--- NOTE | 2022-05-05 21:42 | PM.IMHP ---
H&P: HPI History of Present Illness Date/Time: 05/05/22 21:42 Chief Complaint: 57 years old male with past medical history of hypertension neuroendocrine tremor of the stomach been followed by Hematology-Oncology Dr. Puri presented to the hospital with abdominal pain for the past 3 weeks worsening gradually associated with abdominal distension denies fever or chills associated with lower extremity edema at the ER systolic blood pressure was 180 CT scan of the abdomen showed stable mesenteric mass gallbladder hydrops and large ascites with abdominal wall edema UA was abnormal positive nitrate positive white blood cells positive microscopic hematuria patient was admitted to the hospital for further evaluation and treatment of ascites abdominal pain and probable UTI Review of Systems Review of Systems: Twelve system review was done negative except above PMFSH Past Medical History Medical History HTN (hypertension) with goal to be determined Hypothyroidism Neuroendocrine cancer Pancytopenia Right below-knee amputee Surgical History Surgical History H/O hernia repair H/O shoulder surgery Family History Family History Mother Diabetes mellitus Cancer Father Diabetes mellitus Heart disease Social History Social History Social History: The patient is and has 2 children. He is Disabled. He has 2 children of the durable power defense attorney for healthcare. The patient stated he never smoked. He does not use any alcohol marijuana illicit drugs. Code status DNR Smoking status: Never smoker Second hand tobacco smoke exposure: No Alcohol intake: unknown Substance use: unknown Lack of Transportation: No Lack of Food: Never True Current Housing: I Have Housing Concerned About Future Housing: No Difficulty Paying Gas/Electric Bills: No Difficulty Paying for Meds: No Currently Unemployed: No Education: Decline to Answer Difficulty w/ Childcare or Family Care: No Spiritual care concerns: No Meds Home Medications and Allergies Home Medications Medication Instructions Recorded Confirmed Type aspirin 81 mg chewable tablet 81 mg PO DAILY 01/30/22 02/10/22 History carvedilol 6.25 mg tablet 6.25 mg PO DAILY 01/30/22 02/10/22 History ferrous sulfate 325 mg (65 mg 325 mg PO DAILY 01/30/22 02/10/22 History iron) tablet (FeroSul) gabapentin 400 mg capsule 400 mg PO DAILY 01/30/22 02/10/22 History levothyroxine 112 mcg tablet 112 mcg PO DAILY 01/30/22 02/10/22 History omeprazole 40 mg capsule,delayed 40 mg PO DAILY 01/30/22 02/10/22 History release pramipexole 0.125 mg tablet 0.125 mg PO HS 01/30/22 02/10/22 History spironolactone 50 mg tablet 50 mg PO DAILY 01/30/22 02/10/22 History hydralazine 50 mg tablet 50 mg PO TIDWM #90 tabs 02/05/22 02/10/22 Rx hydroxyzine pamoate 25 mg capsule 25 mg PO Q4H PRN Itching #30 caps 02/17/22 Rx melatonin 5 mg tablet 5 mg PO HS #30 tabs 02/17/22 Rx pramipexole 0.125 mg tablet 0.125 mg PO HS #30 tabs 02/17/22 Rx (Mirapex) silver 200 mcg/gram topical gel 1 applic topical DAILY #30 grams 02/17/22 Rx (Silver-Sept) Allergies Allergy/AdvReac Type Severity Reaction Status Date / Time meperidine Allergy Intermediate Hives / Verified 05/05/22 19:24 Red Face morphine Allergy Intermediate Hives / Verified 05/05/22 19:24 Red Face Penicillins Allergy Intermediate Hives / Verified 05/05/22 19:24 Red Face Vital Signs Vital Signs - 24 hr 05/05/22 18:11 05/05/22 19:25 05/05/22 19:31 Temperature 97 F L Pulse Rate 93 92 87 Respiratory Rate 16 18 17 Blood Pressure 178/100 H 192/110 H Pulse Oximetry 100 Oxygen Delivery Room Air 05/05/22 19:33 05/05/22 19:45 05/05/22 20:02 Temp
[2022-05-05] MEDS: FUROSEMIDE INJ 40 MG/4 ML VIAL IV PUSH (22:10)
[2022-05-05] MEDS: hydrALAZINE HCL 20 MG/ML VIAL 10 MG IV PUSH (22:10)
[2022-05-05] MEDS: cefTRIAXone 2 GM/NS 100 ML 2 GM/100 ML BAG IVPB (22:11)
[2022-05-05 22:21] LABS: Lactic Acid Reflex 1.1 mmol/L (0.7-2.0)
[2022-05-05 22:54] LABS: Ammonia < 9 umol/L (9-30)
[2022-05-05 23:26] LABS: Albumin Level 2.9 g/dL (3.5-5.1)
[2022-05-06] VITALS (12 sets, daily range): BP systolic 111–161; BP diastolic 56–93; PULSE 70–91; RESP 18; TEMP 36.3–36.8; O2SAT 98–99; BMI 39.4
--- NOTE | 2022-05-06 04:38 | ADMGEN ---
This patient, Gino Murphy, was admitted to Medical Room 253-01. Patient/family oriented to hospital policies and general routines including ID bracelet, bed and alarms, visiting hours, pain management, procedures, bathroom and other care routines, personal items, smoking policy, room service/diet, and visiting hours. Information on how to activate the Rapid Response Team has been discussed. Patient/Family are encouraged to report perceived risks to care and to ask questions if they do not understand what they are told or what they should do.
[2022-05-06 05:55] LABS: Basophils Percent Auto 0.6 % (0.2-1.2); Eosinophils Absolute Auto 0.1 K/mm3 (0-0.3); Eosinophils Percent Auto 2.3 % (0-4.4); Hematocrit 24.5 % (42.0-52.0); Hemoglobin 7.6 g/dL (14.0-18.0); Immature Granulocyte Absolute 0.02 K/mm3 (0.00-0.031); Immature Granulocyte Percent A 0.6 % (0-0.5); Lymphocytes Absolute Auto 0.66 K/mm3 (0.9-3.2); Lymphocytes Percent Auto 21.3 % (18.3-44.2); Mean Corpuscular Hemoglobin 27.7 pg (26-34); Mean Corpuscular Volume 89.4 fl (80-100); Mean Platelet Volume 10.3 fl (7.4-10.4); Monocytes Absolute Auto 0.3 K/mm3 (0.1-0.6); Monocytes Percent Auto 8.7 % (2.6-8.5); Neutrophils Absolute Auto 2.1 K/mm3 (1.3-6.7); Neutrophils Percent Auto 66.5 % (45.5-73.1); Platelet Count Result 105 k/mm3 (150-375); Red Blood Count 2.74 M/mm3 (4.6-6.20); Red Cell Distribution Width 21.3 % (11.5-14.5); White Blood Count 3.1 K/mm3 (4.5-10.0)
[2022-05-06 06:27] LABS: Alanine Aminotransferase 16 U/L (6-50); Albumin Level 3.1 g/dL (3.5-5.1); Alkaline Phosphatase 104 U/L (38-126); Anion Gap 6 mmol/L (8-16); Aspartate Amino Transferase 33 U/L (17-59); Bilirubin,Total 3.5 mg/dL (0.2-1.3); Blood Urea Nitrogen 17 mg/dL (9-20); Carbon Dioxide 26 mmol/L (22-30); Chloride 109 mmol/L (98-107); Estimated CRCL calculation 60 ml/min; Estimated Glomerular Filt Rate 36; Glucose 103 mg/dL (65-110); Potassium 3.2 mmol/L (3.4-5.0); Sodium 141 mmol/L (137-145)
[2022-05-06] MEDS: HYDROmorphone HCL INJ (*CRX) 1 MG/ML SYR 0.5 MG IV PUSH (07:57)
[2022-05-06] MEDS: FUROSEMIDE INJ 40 MG/4 ML VIAL IV PUSH ×2 (07:59→17:06)
[2022-05-06] MEDS: hydrALAZINE HCL 50 MG TABLET PO ×3 (08:00→17:06)
[2022-05-06] MEDS: PANTOPRAZOLE SODIUM IV 40 MG VIAL IV PUSH ×2 (08:00→17:06)
[2022-05-06 09:27] LABS: INR 1.7; Prothrombin Time 18.9 Seconds (11.1-14.7)
[2022-05-06] MEDS: SILVERGEL (ELTA) 45 ML 1 APPLIC TOPICAL (10:08)
[2022-05-06 13:29] LABS: Appearance Peritoneal Fluid Clear (Clear); Color Peritoneal Fluid Yellow (Colorless); Lymphocytes Peritoneal Fluid 44 %; Neutrophils Peritoneal Fluid 33 % (0-25); Source Peritoneal Fluid Peritoneal Fluid
[2022-05-06 13:30] LABS: Macrophages Peritoneal Fluid 14 %; Mesothelial Cells Peritoneal Fluid 9 %; Nucleated Cells Peritoneal Flu 229 /uL (0-500); RBC Peritoneal Fluid < 2000 /uL (0-100000)
[2022-05-06] MEDS: ACETAMINOPHEN 325 MG TABLET 650 MG PO ×2 (15:30→21:24)
--- NOTE | 2022-05-06 17:17 | PM.IMPN ---
Progress Note: A&P Assessment and Plan (1) Anemia: Code(s): D64.9 - Anemia, unspecified Status: Acute Assessment and Plan: Probably anemia of chronic disease worsening monitor closely Follow CBC Patient has history of GI bleed in the past SCD for DVT prophylaxis (2) Hypothyroidism: Code(s): E03.9 - Hypothyroidism, unspecified Status: Acute Assessment and Plan: Resume home medication (3) Abdominal pain: Code(s): R10.9 - Unspecified abdominal pain Status: Acute Assessment and Plan: Most likely related to ascites UTI and neuroendocrine tumor Pain control Paracentesis IV antibiotics IV Protonix (4) UTI (urinary tract infection): Code(s): N39.0 - Urinary tract infection, site not specified Status: Acute Assessment and Plan: IV antibiotic follow culture results (5) Neuroendocrine cancer: Code(s): C7A.8 - Other malignant neuroendocrine tumors Status: Acute Assessment and Plan: Heme-Onc was consulted (6) HTN (hypertension) with goal to be determined: Code(s): I10 - Essential (primary) hypertension Status: Acute Assessment and Plan: Uncontrolled Added p.r.n. IV hydralazine Continue IV diuresis (7) Ascites: Code(s): R18.8 - Other ascites Status: Acute Assessment and Plan: IV diuresis Paracentesis diagnostic and therapeutic with ordered Probably malignant ascites Continue IV antibiotic pending culture results (8) Acute renal failure: Code(s): N17.9 - Acute kidney failure, unspecified Status: Acute Assessment and Plan: Most likely related to hypoperfusion secondary to anasarca and ascites Diuresis follow renal function (9) Right upper quadrant pain: Code(s): R10.11 - Right upper quadrant pain Status: Acute Assessment and Plan: Will get ultrasound of the abdomen CT scan shows gallbladder hydrops she IV antibiotics consider surgery evaluation if no improvement in a.m. pending ultrasound of the abdomen Subjective Date/time seen: 05/06/22 1015 Review of Systems Review of Systems: Patient states he is just achy all over and cannot get comfortable in any position. Constitutional: Constitutional: Reports as per HPI ENT: Comments: Denies any sinus congestion or drainage Cardiovascular: Comments: Denies any CP, lightheadedness, or dizziness Respiratory: Comments: Denies any SOB, cough Gastrointestinal: Comments: c/o generalized abdominal discomfort and bloating. Denies any nausea or vomiting. Denies any diarrhea or constipation. Denies any melena or hematochezia. Genitourinary: Genitourinary: Reports urinary frequency Comments: c/o increased urinary frequency, but denies any dysuria, suprapubic or flank pain. Musculoskeletal: Comments: c/o soreness to posterior neck without any h/o trauma. State he just cannot get comfortable in the bed. Denies any decreased ROM or pain with movement. Neurologic: Reports system reviewed and no additional complaints, except as documented Psychiatric: Psychiatric: Reports no additional psychiatric complaints Exam Narrative: Pt alert and oriented x 4 and appears uncomfortable but in no acute distress. Const: General: no acute distress and uncomfortable HENMT: Face/Nose/Sinus: Normal nares present Mouth: Yes moist mucous membranes Eyes: General: appearance normal, both eyes and all related structures Sclera: sclerae normal Neck: Neck: supple and no JVD Resp: Effort & Inspection: normal respiratory effort Auscultation: clear to auscultation bilaterally and diminished lung sounds bilateral in the lower lung anders Cardio: Rate: regular rate Rhythm: regular rhythm Other: No rub, gallop or murmur appreciated GI: Inspection: distended GI Palp: Yes Firmness to palpation present (GI) Auscultation: normal bowel sounds Other: Generalized tenderness, but no point tenderness, or rebou
--- NOTE | 2022-05-06 21:38 | ECHO_ITS ---
Patient Info Name: Gino Murphy Age: 57 years : 1965 Gender: Male Ht: 74 in Wt: 325 lbs BSA: 2.84 m2 HR: 82 bpm BP: 158 / 89 mmHg Technical Quality: Fair Exam Date: 05/06/2022 10:49 AM Exam Location: [facility] Pulmonary Exam Room: 253 Patient Status: Inpatient Admit Date: 05/05/2022 Staff Ordering Physician: Ronal García M.A., MD Office Manager: Wendy Beauchamp RDCS Attending Provider: Ronal García M.A., MD Referring Physician: Oj HA; Exam Type: CA echo doppler color flow Study Info Indications - anasarca Complete two-dimensional, color flow and Doppler transthoracic echocardiogram is performed. Summary 1. Complete two-dimensional, color flow and Doppler transthoracic echocardiogram is performed. 2. Left ventricular chamber dimension is normal. 3. Left ventricular systolic function is hyperdynamic, estimated at >70%. 4. There is mildly increased left ventricular wall thickness. 5. The left ventricular diastolic function is grade I diastolic dysfunction. 6. E/e' 9 is minimally elevated. 7. Left atrial chamber dimension is moderately enlarged. 8. There is mild aortic valve sclerosis. 9. There is trace tricuspid valve regurgitation. 10. Mild pulmonary hypertension, estimated pulmonary arterial systolic pressure is 45 mmHg. Left Ventricle E/e' 9 is minimally elevated. Left ventricular chamber dimension is normal. Left ventricular systolic function is hyperdynamic, estimated at >70%. There is mildly increased left ventricular wall thickness. The left ventricular diastolic function is grade I diastolic dysfunction. Right Ventricle Right ventricular chamber dimension is normal. Right ventricular systolic function is normal. Left Atria Left atrial chamber dimension is moderately enlarged. Right Atria Right atrial chamber dimension is normal. Aortic Valve The aortic valve is trileaflet. There is mild aortic valve sclerosis. There is no aortic valve stenosis. There is no aortic valve regurgitation. Pulmonic Valve There is no pulmonic regurgitation. Mitral Valve There is no mitral valve stenosis. There is no mitral valve regurgitation. Tricuspid Valve There is trace tricuspid valve regurgitation. Mild pulmonary hypertension, estimated pulmonary arterial systolic pressure is 45 mmHg. Pericardium/Pleural There is no pericardial effusion. Inferior Vena Cava Normal inferior vena cava with >50% collapse upon inspiration consistent with normal right atrial pressure, 5 mmHg. Aorta The aortic root size at the sinus of Valsalva is normal. Left Ventricular Outflow Tract Name Value Normal LVOT 2D LVOT Diameter 2.1 cm LVOT Doppler LVOT Peak Gradient 6 mmHg LVOT Mean Gradient 3 mmHg LVOT VTI 22 cm LVOT VTI/AV VTI Ratio 0.8 LVOT Stroke Volume 78 ml LVOT CO 17.3 l/min LVOT CI 6.1 l/min/m2 Pulmonic Valve
[2022-05-07] VITALS (11 sets, daily range): BP systolic 125–168; BP diastolic 66–92; PULSE 67–105; RESP 14–17; TEMP 36.5–36.8; O2SAT 97–100
[2022-05-07] MEDS: HYDROmorphone HCL INJ (*CRX) 1 MG/ML SYR 0.5 MG IV PUSH ×2 (03:17→20:59)
[2022-05-07 06:31] LABS: Basophils Percent Auto 0.6 % (0.2-1.2); Eosinophils Absolute Auto 0.1 K/mm3 (0-0.3); Eosinophils Percent Auto 2.2 % (0-4.4); Hematocrit 21.8 % (42.0-52.0); Immature Granulocyte Absolute 0.01 K/mm3 (0.00-0.031); Immature Granulocyte Percent A 0.3 % (0-0.5); Immature Platelet Fraction Pct 2.5 % (0.9-11.2); Lymphocytes Absolute Auto 0.71 K/mm3 (0.9-3.2); Lymphocytes Percent Auto 22.2 % (18.3-44.2); Mean Corpuscular HGB Conc 31.7 g/dl (32-36); Mean Corpuscular Volume 88.6 fl (80-100); Mean Platelet Volume 9.9 fl (7.4-10.4); Monocytes Absolute Auto 0.3 K/mm3 (0.1-0.6); Monocytes Percent Auto 8.8 % (2.6-8.5); Neutrophils Absolute Auto 2.1 K/mm3 (1.3-6.7); Neutrophils Percent Auto 65.9 % (45.5-73.1); Platelet Count Result 110 k/mm3 (150-375); Red Blood Count 2.46 M/mm3 (4.6-6.20); Red Cell Distribution Width 21.2 % (11.5-14.5); White Blood Count 3.2 K/mm3 (4.5-10.0)
[2022-05-07 06:39] LABS: Alanine Aminotransferase 14 U/L (6-50); Albumin Level 2.8 g/dL (3.5-5.1); Alkaline Phosphatase 84 U/L (38-126); Anion Gap 5 mmol/L (8-16); Aspartate Amino Transferase 33 U/L (17-59); Bilirubin,Total 3.2 mg/dL (0.2-1.3); Blood Urea Nitrogen 18 mg/dL (9-20); Calcium 7.5 mg/dL (8.4-10.2); Carbon Dioxide 27 mmol/L (22-30); Chloride 107 mmol/L (98-107); Estimated CRCL calculation 61 ml/min; Estimated Glomerular Filt Rate 39; Glucose 92 mg/dL (65-110); Potassium 2.9 mmol/L (3.4-5.0); Sodium 139 mmol/L (137-145)
[2022-05-07 06:55] LABS: Hemoglobin 6.9 g/dL (14.0-18.0)
[2022-05-07] MEDS: FERROUS SULFATE 324 MG TABLET PO (09:22)
[2022-05-07] MEDS: POTASSIUM CHLORIDE 20 MEQ TABLET.ER 40 MEQ PO ×2 (09:22→17:17)
[2022-05-07] MEDS: KCL 20 MEQ/SW 100 ML 100 ML 50 MEQ IVPB (09:22)
[2022-05-07] MEDS: ASPIRIN 81 MG CHEWABLE TABLET PO (09:22)
[2022-05-07] MEDS: SPIRONOLACTONE 50 MG TABLET PO (09:23)
[2022-05-07] MEDS: PANTOPRAZOLE 40 MG TABLET PO (09:23)
[2022-05-07] MEDS: GABAPENTIN 400 MG CAPSULE PO (09:23)
[2022-05-07] MEDS: FUROSEMIDE INJ 40 MG/4 ML VIAL IV PUSH ×2 (09:23→17:17)
[2022-05-07] MEDS: OCTREOTIDE ACETATE 100 MCG/ML VIAL SUB-Q ×3 (09:24→18:42)
[2022-05-07] MEDS: SILVERGEL (ELTA) 45 ML 1 APPLIC TOPICAL (09:25)
[2022-05-07] MEDS: hydrALAZINE HCL 50 MG TABLET PO ×3 (09:38→17:17)
[2022-05-07] MEDS: SODIUM CHLORIDE 0.9% IV 250 ML 30 ML IV CONT (11:49)
--- NOTE | 2022-05-07 13:45 | PDONCCN ---
HPI - Date of Consult Date/Time: 05/07/22 13:45 Requesting Physician: Ronal García MD Primary Care Provider: Berenice Weldon, CORRECTIVE THERAPY AIDE - Consult Narrative Narrative: Gino Murphy is a 57 year old male Mr Murphy is a 57 y o male being followed for a low grade neuroendocrine tumor and has been receiving Octreotide. He was admitted for a possible UTI and worsening Ascites which might be related to his Abdominal tuomor or worsening cirrhoses CT has not shown significant chane in size of his tumor since 02/11. Review of Systems - Gastrointestinal Reports abdominal pain, Reports other (distention) - Neurologic Reports system reviewed and no additional complaints, except as documented PMFSH Medical History: Medical History (Last Reviewed 05/05/22 @ 21:46 by Ronal García MD) HTN (hypertension) with goal to be determined Hypothyroidism Neuroendocrine cancer Pancytopenia Right below-knee amputee Surgical History: Surgical History (Last Reviewed 05/05/22 @ 21:46 by Ronal aGrcía MD) H/O hernia repair H/O shoulder surgery Family History: Family History (Last Reviewed 05/06/22 @ 00:04 by Angelo Mantilla RN) Mother Diabetes mellitus Cancer Father Diabetes mellitus Heart disease - Social History Social History: Social History (Last Reviewed 05/05/22 @ 21:46 by Ronal García MD) Alcohol Use: Alcohol intake: never Substance Use: Substance use: never Others: Spiritual care concerns: No Smoking Status: Smoking status: Never smoker Second hand tobacco smoke exposure: No Social Determinants of Health: Has the Lack of Transportation Kept You From Medical Appointments or From Getting Medications?: No Within the Past 12 Months, Were You Worried Whether Your Food Would Run Out Before You Got Money to Buy More?: Sometimes True What is Your Housing Situation Today?: I Have Housing Are You Worried That in the Next 2 Months, You May Not Have Your Own Housing to Live In?: No Do You Have Trouble Paying Your Heating Or Electricity Bill?: No Do You Have Trouble Paying For Medicines?: No Are You Currently Unemployed and Looking for Work?: No Highest Level of Education Completed: High School Diploma/GED Do You Have Trouble With Childcare or the Care of a Family Member?: No Exam - Vital Signs Vital Signs - 24 hr 05/06/22 16:00 05/06/22 19:35 05/06/22 21:48 Temperature 36.6 C 36.8 C Pulse Rate 88 85 Respiratory Rate 18 Blood Pressure 111/56 L Pulse Oximetry 98 Oxygen Delivery 05/07/22 03:14 05/06/22 20:00 05/07/22 00:00 Temperature 36.7 C Pulse Rate 74 86 76 Respiratory Rate 17 Blood Pressure 146/76 H Pulse Oximetry 98 Oxygen Delivery 05/07/22 04:00 05/07/22 11:42 05/07/22 08:00 Temperature 36.8 C Pulse Rate 70 72 Respiratory Rate 16 Blood Pressure 137/66 Pulse Oximetry 98 Oxygen Delivery Room Air 05/07/22 12:00 Temperature 36.5 C Pulse Rate 78 Respiratory Rate 15 Blood Pressure 137/78 Pulse Oximetry 97 Oxygen Delivery - Lab Results Laboratory Last Values WBC 3.2 K/mm3 (4.5-10.0) L 05/07/22 05:54 RBC 2.46 M/mm3 (4.6-6.20) L 05/07/22 05:54 Hgb 6.9 g/dL (14.0-18.0) L* 05/07/22 05:54 Hct 21.8 % (42.0-52.0) L 05/07/22 05:54 MCV 88.6 fl (80-100) 05/07/22 05:54 MCH 28.0 pg (26-34) 05/07/22 05:54 MCHC 31.7 g/dl (32-36) L 05/07/22 05:54 RDW 21.2 % (11.5-14.5) H 05/07/22 05:54 Plt Count 110 k/mm3 (150-375) L 05/07/22 05:54 MPV 9.9 fl (7.4-10.4) 05/07/22 05:54 Immature Gran % (Auto) 0.3 % (0-0.5) 05/07/22 05:54 Neut % (Auto) 65.9 % (45.5-73.1) 05/07/22 05:54 Lymph % (Auto) 22.2 % (18.3-44.2) 05/07/22 05:54 Real % (Auto) 8.8 % (2.6-8.5) H 05/07/22 05:54 Eos % (Auto) 2.2 % (0-4.4) 05/07/22 05:54 Baso % (Auto) 0.6
--- NOTE | 2022-05-07 16:27 | WPDGICN ---
Assessment and Plan Assessment and plan (1) Ascites: Code(s): R18.8 - Other ascites Status: Acute Assessment and Plan: no sbp on antibiotics also for uti on diuretics and 2g na diet may need more paracentesis (still uncomfortable and abd is distended) (2) Cirrhosis: Code(s): K74.60 - Unspecified cirrhosis of liver Status: Acute Assessment and Plan: known history and he has seen Dr Batista (3) Neuroendocrine cancer: Code(s): C7A.8 - Other malignant neuroendocrine tumors Status: Acute Assessment and Plan: octreotide, large mass in abdomen that is causing pain (4) Abdominal pain: Code(s): R10.9 - Unspecified abdominal pain Status: Acute (5) UTI (urinary tract infection): Code(s): N39.0 - Urinary tract infection, site not specified Status: Acute Assessment and Plan: on abx GI Consult Note Consult date/time: 05/07/22 16:27 Reason for consult: ascites, cirrhosis, neuroendocrine tumor HPI: Gino Murphy is a 57 year old male with cirrhosis, low grade neuroendocrine tumor that is metastatic throughout the abdomen with multiple abdominal masses that has been receiving Octreotide as outpatient. He came this time with abdominal pain for the past 3 weeks that got more severe and also noted abdominal distension, no fever or chills. CT scan of the abdomen reviewed and showed stable mesenteric mass, gallbladder hydrops and large ascites with abdominal wall edema, abnormal UA and admitted for a possible UTI. Also had paracentesis with removal of 5 liters (no obvious sbp), started on abx and also on diuretics. Review of Systems Constitutional: Constitutional: Denies chills Eyes: Eyes: Denies blurry vision ENT: Reports Normal hearing present Cardiovascular: Cardiovascular: Denies chest pain Respiratory: Respiratory: Denies cough Gastrointestinal: Gastrointestinal: Reports abdominal pain Genitourinary: Genitourinary: Denies urinary incontinence Musculoskeletal: Musculoskeletal: Denies joint swelling Integumentary/Breasts: Skin/Breast: Denies rash Neurologic: Denies Abnormal speech present Psychiatric: Psychiatric: Denies behavioral changes [facility] Past Medical History Medical History HTN (hypertension) with goal to be determined Hypothyroidism Neuroendocrine cancer Pancytopenia Right below-knee amputee Surgical History Surgical History H/O hernia repair H/O shoulder surgery Family History Family History Mother Diabetes mellitus Cancer Father Diabetes mellitus Heart disease Social History Social History Social History: The patient is and has 2 children. He is Disabled. He has 2 children of the durable power deputy attorney general for healthcare. The patient stated he never smoked. He does not use any alcohol marijuana illicit drugs. Code status DNR Smoking status: Never smoker Second hand tobacco smoke exposure: No Alcohol intake: never Substance use: never Lack of Transportation: No Lack of Food: Sometimes True Current Housing: I Have Housing Concerned About Future Housing: No Difficulty Paying Gas/Electric Bills: No Difficulty Paying for Meds: No Currently Unemployed: No Education: High School Diploma/GED Difficulty w/ Childcare or Family Care: No Spiritual care concerns: No Meds Home Medications and Allergies Home Medications Medication Instructions Recorded Confirmed Type aspirin 81 mg chewable tablet 81 mg PO DAILY 01/30/22 05/06/22 History ferrous sulfate 325 mg (65 mg 325 mg PO DAILY 01/30/22 05/06/22 History iron) tablet (FeroSul) gabapentin 400 mg capsule 400 mg PO DAILY 01/30/22 05/06/22 History levothyroxine
--- NOTE | 2022-05-07 16:56 | PM.IMPN ---
Progress Note: A&P Assessment and Plan (1) Anemia: Code(s): D64.9 - Anemia, unspecified Status: Acute Assessment and Plan: Probably anemia of chronic disease worsening monitor closely Follow CBC Hgb was 7.6 yesterday and 6.9 today. Will order 1 unit PRBCs Patient has history of GI bleed in the past SCD for DVT prophylaxis (2) Hypothyroidism: Code(s): E03.9 - Hypothyroidism, unspecified Status: Acute Assessment and Plan: Resume home medication (3) Abdominal pain: Code(s): R10.9 - Unspecified abdominal pain Status: Acute Assessment and Plan: Most likely related to ascites UTI and neuroendocrine tumor Pain control Paracentesis IV antibiotics IV Protonix (4) UTI (urinary tract infection): Code(s): N39.0 - Urinary tract infection, site not specified Status: Acute Assessment and Plan: IV antibiotic follow culture results (5) Neuroendocrine cancer: Code(s): C7A.8 - Other malignant neuroendocrine tumors Status: Acute Assessment and Plan: Heme-Onc was consulted- appreciate input (6) HTN (hypertension) with goal to be determined: Code(s): I10 - Essential (primary) hypertension Status: Acute Assessment and Plan: Uncontrolled Added p.r.n. 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 pending ultrasound of the abdomen Subjective Date/time seen: 05/07/22 1045 Review of Systems Review of Systems: All systems reviewed & are unremarkable except as noted in HPI and below Constitutional: Constitutional: Reports body ache(s) (Generalized) Comments: Pt reports he feels like crap just like every other day. Denies any new complaints and states he no longer has the neck ache that he had yesterday. Cardiovascular: Comments: Denies any CP, palpitations, lightheadedness Respiratory: Comments: Denies any SOB, cough Gastrointestinal: Gastrointestinal: Reports abdominal pain (generalized ache), Reports bloating and Reports nausea Exam Narrative: Pt alert and oriented x 4 and appears uncomfortable but in no acute distress. States he feels just like yesterday. Const: General: no acute distress and uncomfortable HENMT: Face/Nose/Sinus: Normal nares present Mouth: Yes moist mucous membranes Eyes: General: appearance normal, both eyes and all related structures Sclera: sclerae normal Neck: Neck: supple and no JVD Resp: Effort & Inspection: normal respiratory effort Auscultation: clear to auscultation bilaterally and diminished lung sounds bilateral in the lower lung anders Cardio: Rate: regular rate Rhythm: regular rhythm Other: No rub, gallop or murmur appreciated GI: Inspection: distended Auscultation: normal bowel sounds Other: Generalized tenderness, but no point tenderness, or rebound tenderness appreciated. Skin: General skin exam: normal color and no rashes or lesions noted Neuro: Speech: normal speech Motor exam (neuro): Normal motor muscle tone present throughout Other: Pt moving all extremities equally Extrem: General: normal to inspection Other: No peripheral edema appreciated. Bilateral pedal pulses palpated and
[2022-05-07] MEDS: PRAMIPEXOLE 0.125 MG TABLET PO (21:00)
[2022-05-07] MEDS: MELATONIN 5 MG TABLET PO (21:00)
[2022-05-08] VITALS (9 sets, daily range): BP systolic 112–143; BP diastolic 65–83; PULSE 74–89; RESP 16–18; TEMP 36.5–36.9; O2SAT 95–97
[2022-05-08 05:51] LABS: Eosinophils Absolute Auto 0.1 K/mm3 (0-0.3); Eosinophils Percent Auto 3.3 % (0-4.4); Hematocrit 25.8 % (42.0-52.0); Immature Granulocyte Absolute 0.01 K/mm3 (0.00-0.031); Immature Granulocyte Percent A 0.3 % (0-0.5); Lymphocytes Absolute Auto 0.82 K/mm3 (0.9-3.2); Lymphocytes Percent Auto 27.2 % (18.3-44.2); Mean Corpuscular Hemoglobin 27.8 pg (26-34); Mean Corpuscular Volume 89.6 fl (80-100); Mean Platelet Volume 9.8 fl (7.4-10.4); Monocytes Absolute Auto 0.3 K/mm3 (0.1-0.6); Monocytes Percent Auto 9.3 % (2.6-8.5); Neutrophils Absolute Auto 1.8 K/mm3 (1.3-6.7); Neutrophils Percent Auto 58.9 % (45.5-73.1); Platelet Count Result 94 k/mm3 (150-375); Red Blood Count 2.88 M/mm3 (4.6-6.20); Red Cell Distribution Width 20.7 % (11.5-14.5)
[2022-05-08 06:11] LABS: Alanine Aminotransferase 13 U/L (6-50); Alkaline Phosphatase 92 U/L (38-126); Anion Gap 4 mmol/L (8-16); Aspartate Amino Transferase 32 U/L (17-59); Bilirubin,Total 3.8 mg/dL (0.2-1.3); Blood Urea Nitrogen 17 mg/dL (9-20); Calcium 7.9 mg/dL (8.4-10.2); Carbon Dioxide 26 mmol/L (22-30); Chloride 108 mmol/L (98-107); Estimated CRCL calculation 58 ml/min; Estimated Glomerular Filt Rate 36; Glucose 91 mg/dL (65-110); Potassium 3.4 mmol/L (3.4-5.0); Sodium 138 mmol/L (137-145)
[2022-05-08] MEDS: LEVOTHYROXINE SODIUM 112 MCG TABLET PO (06:19)
[2022-05-08] MEDS: GABAPENTIN 400 MG CAPSULE PO (08:54)
[2022-05-08] MEDS: ASPIRIN 81 MG CHEWABLE TABLET PO (08:54)
[2022-05-08] MEDS: FERROUS SULFATE 324 MG TABLET PO (08:54)
[2022-05-08] MEDS: OCTREOTIDE ACETATE 100 MCG/ML VIAL SUB-Q ×3 (08:54→17:26)
[2022-05-08] MEDS: SPIRONOLACTONE 50 MG TABLET PO (08:55)
[2022-05-08] MEDS: hydrALAZINE HCL 50 MG TABLET PO ×3 (08:55→17:19)
[2022-05-08] MEDS: SILVERGEL (ELTA) 45 ML 1 APPLIC TOPICAL (08:55)
[2022-05-08] MEDS: PANTOPRAZOLE 40 MG TABLET PO (08:55)
[2022-05-08] MEDS: FUROSEMIDE INJ 40 MG/4 ML VIAL IV PUSH ×2 (08:55→17:19)
[2022-05-08] MEDS: HYDROmorphone HCL INJ (*CRX) 1 MG/ML SYR 0.5 MG IV PUSH ×2 (09:13→21:23)
--- NOTE | 2022-05-08 12:17 | PM.IMPN ---
Progress Note: A&P Assessment and Plan (1) Anemia: Code(s): D64.9 - Anemia, unspecified Status: Acute Assessment and Plan: Probably anemia of chronic disease worsening monitor closely Follow CBC Hgb was 7.6 yesterday and 6.9 today. Will order 1 unit PRBCs Patient has history of GI bleed in the past SCD for DVT prophylaxis 05/08/2022 interval history: 57 y/o male with history of low grad neuroendocrine tumor seen by oncologist and receiving octreotide, the oncologist suspect ascites 2/2 worsening tumor and/or his liver cirrhosis, here with abdomen pain and recurrent ascites, patient had paracentesis upon arrival on 05/06 and 5L was removed, he continue to have enlarging ascites and patient is being diuresed with lasix and spironolactone, his Scr is rising, will schedule paracentesis for tomorrow, (2) Hypothyroidism: Code(s): E03.9 - Hypothyroidism, unspecified Status: Acute Assessment and Plan: Resume home medication (3) Abdominal pain: Code(s): R10.9 - Unspecified abdominal pain Status: Acute Assessment and Plan: Most likely related to ascites UTI and neuroendocrine tumor Pain control Paracentesis IV antibiotics IV Protonix (4) UTI (urinary tract infection): Code(s): N39.0 - Urinary tract infection, site not specified Status: Acute Assessment and Plan: IV antibiotic follow culture results (5) Neuroendocrine cancer: Code(s): C7A.8 - Other malignant neuroendocrine tumors Status: Acute Assessment and Plan: Heme-Onc was consulted- appreciate input (6) HTN (hypertension) with goal to be determined: Code(s): I10 - Essential (primary) hypertension Status: Acute Assessment and Plan: Uncontrolled Added p.r.n. 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 pending ultrasound of the abdomen Subjective Date/time seen: 05/08/22 12:17 05/08/2022 interval history: 57 y/o male with history of low grad neuroendocrine tumor seen by oncologist and receiving octreotide, the oncologist suspect ascites 2/2 worsening tumor and/or his liver cirrhosis, here with abdomen pain and recurrent ascites, patient had paracentesis upon arrival on 05/06 and 5L was removed, he continue to have enlarging ascites and patient is being diuresed with lasix and spironolactone, his Scr is rising, will schedule paracentesis for tomorrow, Review of Systems Review of Systems: All systems reviewed & are unremarkable except as noted in HPI and below Exam Narrative: Morbidly obese Patient is comfortable, NAD HEENT: eyes are clear and none icteric LUNGS: Normal respiratory effort ABD: Distended ascites Lower extremities: no edema SKIN: nonjaundiced Neuro: grossly intact. Objective Data Vital Signs Vital Signs: Vital Signs - 24 hr 05/07/22 12:55 05/07/22 13:55 05/07/22 16:00 Temperature 98.0 F 98.3 F Pulse Rate 67 81 86 Respiratory Rate 16 16 Blood Pressure 139/77 168/92 H Pulse Oximetry 97 100 Oxygen Delivery 05/07/22 23:16 05/07/22 20:00 05/07/22 20:00 Temperature 97.9 F Pulse Rate 82 82 105 H Respiratory Rate 14 14 Blood Pressure 125/67 Pulse O
[2022-05-08] MEDS: POTASSIUM CHLORIDE 20 MEQ TABLET 40 MEQ PO (12:58)
--- NOTE | 2022-05-08 13:13 | WPDGIPROGNO ---
Progress Note: A&P Assessment and Plan (1) Ascites: Code(s): R18.8 - Other ascites Status: Acute Assessment and Plan: will repeat another paracentesis tomorrow, still distended on aldactone, monitor renal function given ckd (2) Abdominal pain: Code(s): R10.9 - Unspecified abdominal pain Status: Acute Assessment and Plan: similar also neuroendocrine tumor with known lesions- on octreotide (3) Cirrhosis: Code(s): K74.60 - Unspecified cirrhosis of liver Status: Acute Assessment and Plan: 2g na diet, diuretics- monitor renal function (4) Neuroendocrine cancer: Code(s): C7A.8 - Other malignant neuroendocrine tumors Status: Acute Assessment and Plan: by oncology on octreotide Subjective Date/time seen: 05/08/22 13:13 Interval history: no changes, similar pain, abdomen still distended Review of Systems Review of Systems: All systems reviewed & are unremarkable except as noted in HPI and below Exam Narrative: Pt alert and oriented x 4 and appears uncomfortable but in no acute distress. Const: General: no acute distress and uncomfortable HENMT: Face/Nose/Sinus: Normal nares present Eyes: General: appearance normal, both eyes and all related structures Sclera: sclerae normal Neck: Neck: supple Resp: Effort & Inspection: normal respiratory effort Auscultation: clear to auscultation bilaterally Cardio: Rate: regular rate Rhythm: regular rhythm GI: Inspection: distended GI Palp: No Guarding due to palpation present (GI) Auscultation: normal bowel sounds Other: + fluid wave c/w ascites, no rebound Skin: General skin exam: normal color and no rashes or lesions noted Neuro: Speech: normal speech Motor exam (neuro): Normal motor muscle tone present throughout Extrem: General: normal to inspection Psych: Mental Status: mental status grossly normal Affect: normal affect Objective Data Vital Signs Vital Signs: Vital Signs - 24 hr 05/07/22 13:55 05/07/22 16:00 05/07/22 23:16 Temperature 98.3 F 97.9 F Pulse Rate 81 86 82 Respiratory Rate 16 14 Blood Pressure 168/92 H 125/67 Pulse Oximetry 100 97 Oxygen Delivery 05/07/22 20:00 05/07/22 20:00 05/08/22 00:00 Temperature Pulse Rate 82 105 H 79 Respiratory Rate 14 Blood Pressure Pulse Oximetry 97 Oxygen Delivery Room Air 05/08/22 04:00 05/08/22 07:09 Temperature 97.7 F Pulse Rate 79 78 Respiratory Rate 16 Blood Pressure 138/83 Pulse Oximetry 96 Oxygen Delivery Intake/Output Intake/Output: Intake & Output 05/05/22 05/06/22 05/07/22 05/08/22 23:59 23:59 23:59 23:59 Intake Total 1100 1825 1870 1130 Output Total 800 36937 2800 1800 Balance 300 -8425 -930 -670 Meds/Results Medications: Active Medications Generic Name Dose Route Start Last Admin Trade Name Freq PRN Reason Stop Dose Admin Acetaminophen 650 mg 05/05/22 21:38 05/06/22 21:24 Acetaminophen 325 Mg Tablet PO 650 mg Q6H PRN Administration Mild Pain (1-3) Aspirin 81 mg 05/07/22 09:00 05/08/22 08:54 Aspirin 81 Mg Chewable Tablet PO 81 mg DAILY MARY Administration Ferrous Sulfate 324 mg 05/07/22 08:00 05/08/22 08:54 Ferrous Sulfate 324 Mg Tablet PO 324 mg DAILY@0800 MARY Administration Furosemide 40 mg 05/06/22 09:00 05/08/22 08:55 Furosemide Inj 40 Mg/4 Ml Vial IV PUSH 40 mg BID MARY Administration Gabapentin 400 mg 05/07/22 09:00 05/08/22 08:54 Gabapentin 400 Mg Capsule PO 400 mg DAILY MARY Administration Hydralazine HCl 10 mg 05/05/22 21:38 05/05/22 22:10 Hydralazine Hcl 20 Mg/Ml Vial IV PUSH 10 mg Q6H PRN Administration Hypertension Hydralazine HCl 50 mg 05/06/22 09:00 05/08/22 12:58 Hydralazine Hcl 50 Mg Tablet PO 50 mg TID MARY Administration Hydromorphone HCl 0.5 mg 05/05/22 21:51 05/08/22 09:13 Hydromorphone Hcl Inj (*Crx) 1 Mg/Ml Syr IV PUSH 0.5 mg Q4
[2022-05-08] MEDS: MELATONIN 5 MG TABLET PO (21:20)
[2022-05-08] MEDS: PRAMIPEXOLE 0.125 MG TABLET PO (21:20)
[2022-05-09] VITALS: PULSE 75
[2022-05-09 04:00] VITALS: PULSE 74
[2022-05-09 05:40] LABS: Hematocrit 25.5 % (42.0-52.0); Mean Corpuscular HGB Conc 31.4 g/dl (32-36); Mean Corpuscular Hemoglobin 27.5 pg (26-34); Mean Corpuscular Volume 87.6 fl (80-100); Mean Platelet Volume 9.8 fl (7.4-10.4); Platelet Count Result 104 k/mm3 (150-375); Red Blood Count 2.91 M/mm3 (4.6-6.20); Red Cell Distribution Width 20.7 % (11.5-14.5); White Blood Count 3.1 K/mm3 (4.5-10.0)
[2022-05-09 05:42] LABS: Alanine Aminotransferase 14 U/L (6-50); Albumin Level 2.9 g/dL (3.5-5.1); Alkaline Phosphatase 96 U/L (38-126); Anion Gap 4 mmol/L (8-16); Aspartate Amino Transferase 31 U/L (17-59); Bilirubin,Total 3.5 mg/dL (0.2-1.3); Blood Urea Nitrogen 20 mg/dL (9-20); Calcium 7.9 mg/dL (8.4-10.2); Carbon Dioxide 29 mmol/L (22-30); Chloride 104 mmol/L (98-107); Estimated CRCL calculation 58 ml/min; Estimated Glomerular Filt Rate 36; Glucose 99 mg/dL (65-110); Magnesium 1.6 mg/dL (1.6-2.3); Potassium 3.5 mmol/L (3.4-5.0); Sodium 137 mmol/L (137-145)
[2022-05-09] MEDS: LEVOTHYROXINE SODIUM 112 MCG TABLET PO (06:27)
[2022-05-09 06:40] VITALS: BP 115/67; PULSE 81; RESP 16; TEMP 36.9; O2SAT 96
[2022-05-09] MEDS: FERROUS SULFATE 324 MG TABLET PO (08:56)
[2022-05-09] MEDS: PANTOPRAZOLE 40 MG TABLET PO (08:56)
[2022-05-09] MEDS: OCTREOTIDE ACETATE 100 MCG/ML VIAL SUB-Q ×3 (08:56→17:08)
[2022-05-09] MEDS: GABAPENTIN 400 MG CAPSULE PO (08:56)
[2022-05-09] MEDS: FUROSEMIDE INJ 40 MG/4 ML VIAL IV PUSH ×2 (08:56→17:08)
[2022-05-09] MEDS: ASPIRIN 81 MG CHEWABLE TABLET PO (08:56)
[2022-05-09] MEDS: hydrALAZINE HCL 50 MG TABLET PO ×3 (08:56→17:08)
[2022-05-09] MEDS: SPIRONOLACTONE 50 MG TABLET PO (08:56)
[2022-05-09] MEDS: SILVERGEL (ELTA) 45 ML 1 APPLIC TOPICAL (08:57)
[2022-05-09] MEDS: HYDROmorphone HCL INJ (*CRX) 1 MG/ML SYR 0.5 MG IV PUSH ×3 (09:14→21:09)
--- NOTE | 2022-05-09 11:42 | PM.IMPN ---
Progress Note: A&P Assessment and Plan (1) Anemia: Code(s): D64.9 - Anemia, unspecified Status: Acute Assessment and Plan: 05/09/22 11:42 Probably anemia of chronic disease worsening monitor closely Follow CBC Hgb was 7.6 yesterday and 6.9 today. Will order 1 unit PRBCs Patient has history of GI bleed in the past SCD for DVT prophylaxis 05/09/2022 interval history: 57 y/o male with history of low grad neuroendocrine tumor seen by oncologist and receiving octreotide, the oncologist suspect ascites 2/2 worsening tumor and/or his liver cirrhosis, here with abdomen pain and recurrent ascites, patient had paracentesis upon arrival on 05/06 and 5L was removed, he continue to have enlarging ascites and patient is being diuresed with lasix and spironolactone, his Scr is rising, will schedule paracentesis for tomorrow, Patient has no new complaints will monitor. (2) Hypothyroidism: Code(s): E03.9 - Hypothyroidism, unspecified Status: Acute Assessment and Plan: Resume home medication (3) Abdominal pain: Code(s): R10.9 - Unspecified abdominal pain Status: Acute Assessment and Plan: Most likely related to ascites UTI and neuroendocrine tumor Pain control Paracentesis IV antibiotics IV Protonix (4) UTI (urinary tract infection): Code(s): N39.0 - Urinary tract infection, site not specified Status: Acute Assessment and Plan: IV antibiotic follow culture results (5) Neuroendocrine cancer: Code(s): C7A.8 - Other malignant neuroendocrine tumors Status: Acute Assessment and Plan: Heme-Onc was consulted- appreciate input (6) HTN (hypertension) with goal to be determined: Code(s): I10 - Essential (primary) hypertension Status: Acute Assessment and Plan: Uncontrolled Added p.r.n. 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 pending ultrasound of the abdomen Subjective Date/time seen: 05/09/22 11:42 Probably anemia of chronic disease worsening monitor closely Follow CBC Hgb was 7.6 yesterday and 6.9 today. Will order 1 unit PRBCs Patient has history of GI bleed in the past SCD for DVT prophylaxis 05/09/2022 interval history: 57 y/o male with history of low grad neuroendocrine tumor seen by oncologist and receiving octreotide, the oncologist suspect ascites 2/2 worsening tumor and/or his liver cirrhosis, here with abdomen pain and recurrent ascites, patient had paracentesis upon arrival on 05/06 and 5L was removed, he continue to have enlarging ascites and patient is being diuresed with lasix and spironolactone, his Scr is rising, will schedule paracentesis for tomorrow, Patient has no new complaints will monitor. Review of Systems Review of Systems: All systems reviewed & are unremarkable except as noted in HPI and below Exam Narrative: Morbidly obese Patient is comfortable, NAD HEENT: eyes are clear and none icteric LUNGS: Normal respiratory effort ABD: Distended ascites Lower extremities: no edema SKIN: nonjaundiced Neuro: grossly intact. Objective Data Vital Signs Vital Signs: Vital Signs - 24 hr 05/08/22 14:00 05/08/22 12:00 05/08
[2022-05-09 12:32] LABS: Albumin Peritoneal Fluid 0.8 g/dL
[2022-05-09 14:00] VITALS: BP 120/72; PULSE 84; RESP 22; TEMP 36.7; O2SAT 96
[2022-05-09 15:52] LABS: Amylase Peritoneal Fluid 10 U/L
--- NOTE | 2022-05-09 16:46 | WPDGIPROGNO ---
Progress Note: A&P Assessment and Plan (1) Ascites: Code(s): R18.8 - Other ascites Status: Acute Assessment and Plan: pending another paracentesis- still distended with discomfort on aldactone, monitor renal function given ckd (2) Abdominal pain: Code(s): R10.9 - Unspecified abdominal pain Status: Acute Assessment and Plan: similar also neuroendocrine tumor with known lesions- on octreotide (3) Cirrhosis: Code(s): K74.60 - Unspecified cirrhosis of liver Status: Acute Assessment and Plan: 2g na diet, diuretics- monitor renal function (4) Neuroendocrine cancer: Code(s): C7A.8 - Other malignant neuroendocrine tumors Status: Acute Assessment and Plan: by oncology on octreotide Subjective Date/time seen: 05/09/22 16:46 Interval history: today with more abdominal distension and less appetite Review of Systems Review of Systems: All systems reviewed & are unremarkable except as noted in HPI and below Exam Narrative: Pt alert and oriented x 4 and appears uncomfortable but in no acute distress. Const: General: no acute distress and uncomfortable HENMT: Face/Nose/Sinus: Normal nares present Eyes: General: appearance normal, both eyes and all related structures Sclera: sclerae normal Neck: Neck: supple Resp: Effort & Inspection: normal respiratory effort Auscultation: clear to auscultation bilaterally Cardio: Rate: regular rate Rhythm: regular rhythm GI: Inspection: distended GI Palp: No Guarding due to palpation present (GI) Auscultation: normal bowel sounds Other: + fluid wave c/w ascites, no rebound Skin: General skin exam: normal color and no rashes or lesions noted Neuro: Speech: normal speech Motor exam (neuro): Normal motor muscle tone present throughout Extrem: General: normal to inspection Psych: Mental Status: mental status grossly normal Affect: normal affect Objective Data Vital Signs Vital Signs: Vital Signs - 24 hr 05/08/22 20:35 05/08/22 20:00 05/08/22 20:00 Temperature 98.2 F Pulse Rate 76 76 83 Respiratory Rate 16 16 Blood Pressure 143/69 H Pulse Oximetry 95 95 Oxygen Delivery Room Air 05/09/22 00:00 05/09/22 04:00 05/09/22 06:40 Temperature 98.5 F Pulse Rate 75 74 81 Respiratory Rate 16 Blood Pressure 115/67 Pulse Oximetry 96 Oxygen Delivery 03/19/23 14:00 Temperature 98.0 F Pulse Rate 84 Respiratory Rate 22 H Blood Pressure 120/72 Pulse Oximetry 96 Oxygen Delivery Intake/Output Intake/Output: Intake & Output 05/06/22 05/07/22 05/08/22 05/09/22 23:59 23:59 23:59 23:59 Intake Total 1825 1920 1570 1390 Output Total [id number] 1220 7159 800 [facility] [phone] Meds/Results Medications: Active Medications Generic Name Dose Route Start Last Admin Trade Name Freq PRN Reason Stop Dose Admin Acetaminophen 650 mg 05/05/22 21:38 05/06/22 21:24 Acetaminophen 325 Mg Tablet PO 650 mg Q6H PRN Administration Mild Pain (1-3) Aspirin 81 mg 05/07/22 09:00 05/09/22 08:56 Aspirin 81 Mg Chewable Tablet PO 81 mg DAILY MARY Administration Ferrous Sulfate 324 mg 05/07/22 08:00 05/09/22 08:56 Ferrous Sulfate 324 Mg Tablet PO 324 mg DAILY@0800 MARY Administration Furosemide 40 mg 05/06/22 09:00 05/09/22 08:56 Furosemide Inj 40 Mg/4 Ml Vial IV PUSH 40 mg BID MARY Administration Gabapentin 400 mg 05/07/22 09:00 05/09/22 08:56 Gabapentin 400 Mg Capsule PO 400 mg DAILY MARY Administration Hydralazine HCl 10 mg 05/05/22 21:38 05/05/22 22:10 Hydralazine Hcl 20 Mg/Ml Vial IV PUSH 10 mg Q6H PRN Administration Hypertension Hydralazine HCl 50 mg 05/06/22 09:00 05/09/22 12:59 Hydralazine Hcl 50 Mg Tablet PO 50 mg TID MARY Administration Hydromorphone HCl 0.5 mg 05/05/22 21:51 05/09/22 09:14 Hydromorphone Hcl Inj (*Crx) 1 Mg/Ml Syr IV PUSH 0.5 mg Q4H PRN Administra
[2022-05-09] MEDS: MELATONIN 5 MG TABLET PO (20:16)
[2022-05-09] MEDS: PRAMIPEXOLE 0.125 MG TABLET PO (20:16)
[2022-05-09 21:12] VITALS: BP 116/63; PULSE 79; RESP 16; TEMP 37.2; O2SAT 97
[2022-05-10] MEDS: HYDROmorphone HCL INJ (*CRX) 1 MG/ML SYR 0.5 MG IV PUSH ×4 (04:35→23:51)
[2022-05-10 04:57] LABS: Hematocrit 26.5 % (42.0-52.0); Hemoglobin 8.5 g/dL (14.0-18.0); Mean Corpuscular HGB Conc 32.1 g/dl (32-36); Mean Corpuscular Volume 87.2 fl (80-100); Mean Platelet Volume 9.6 fl (7.4-10.4); Platelet Count Result 106 k/mm3 (150-375); Red Blood Count 3.04 M/mm3 (4.6-6.20); Red Cell Distribution Width 20.9 % (11.5-14.5); White Blood Count 3.3 K/mm3 (4.5-10.0)
[2022-05-10 05:02] LABS: INR 1.6
[2022-05-10 05:03] LABS: Alanine Aminotransferase 14 U/L (6-50); Alkaline Phosphatase 110 U/L (38-126); Anion Gap 5 mmol/L (8-16); Aspartate Amino Transferase 37 U/L (17-59); Bilirubin,Total 3.4 mg/dL (0.2-1.3); Blood Urea Nitrogen 22 mg/dL (9-20); Calcium 8.1 mg/dL (8.4-10.2); Carbon Dioxide 30 mmol/L (22-30); Chloride 102 mmol/L (98-107); Estimated CRCL calculation 50 ml/min; Estimated Glomerular Filt Rate 31; Glucose 106 mg/dL (65-110); Magnesium 1.5 mg/dL (1.6-2.3); Partial Thromboplastin Time 42.7 SECONDS (22.3-36.8); Potassium 3.5 mmol/L (3.4-5.0); Sodium 137 mmol/L (137-145)
[2022-05-10] MEDS: LEVOTHYROXINE SODIUM 112 MCG TABLET PO (05:42)
[2022-05-10 06:04] VITALS: BP 105/60; PULSE 73; RESP 16; TEMP 36.8; O2SAT 94
[2022-05-10 06:31] LABS: Glucose Peritoneal Fluid 107 mg/dL; LDH Peritoneal Fluid 45 U/L (<63); Total Protein Peritoneal Fluid <3.0 g/dL
[2022-05-10] MEDS: FUROSEMIDE INJ 40 MG/4 ML VIAL IV PUSH ×2 (08:55→18:03)
[2022-05-10] MEDS: OCTREOTIDE ACETATE 100 MCG/ML VIAL SUB-Q ×3 (08:56→18:03)
[2022-05-10] MEDS: SILVERGEL (ELTA) 45 ML 1 APPLIC TOPICAL (08:56)
--- NOTE | 2022-05-10 13:30 | PC.NURSE ---
Pt to ultrasound via stretcher for paracentesis
[2022-05-10 14:00] VITALS: BP 145/84; PULSE 85; RESP 16; O2SAT 97
--- NOTE | 2022-05-10 14:45 | PM.IMPN ---
Progress Note: A&P Assessment and Plan (1) Anemia: Code(s): D64.9 - Anemia, unspecified Status: Acute Assessment and Plan: 05/09/22 11:42 Probably anemia of chronic disease worsening monitor closely Follow CBC Hgb was 7.6 yesterday and 6.9 today. Will order 1 unit PRBCs Patient has history of GI bleed in the past SCD for DVT prophylaxis 05/10/2022 interval history: 57 y/o male with history of low grad neuroendocrine tumor seen by oncologist and receiving octreotide, the oncologist suspect ascites 2/2 worsening tumor and/or his liver cirrhosis, here with abdomen pain and recurrent ascites, patient had paracentesis upon arrival on 05/06 and 5L was removed, he continue to have enlarging ascites and patient is being diuresed with lasix and spironolactone, his Scr is rising, will schedule paracentesis for today, patient is on ceftriaxone for prophylaxis for SBP, Patient has no new complaints will monitor. (2) Hypothyroidism: Code(s): E03.9 - Hypothyroidism, unspecified Status: Acute Assessment and Plan: Resume home medication (3) Abdominal pain: Code(s): R10.9 - Unspecified abdominal pain Status: Acute Assessment and Plan: Most likely related to ascites UTI and neuroendocrine tumor Pain control Paracentesis IV antibiotics IV Protonix (4) UTI (urinary tract infection): Code(s): N39.0 - Urinary tract infection, site not specified Status: Acute Assessment and Plan: IV antibiotic follow culture results (5) Neuroendocrine cancer: Code(s): C7A.8 - Other malignant neuroendocrine tumors Status: Acute Assessment and Plan: Heme-Onc was consulted- appreciate input (6) HTN (hypertension) with goal to be determined: Code(s): I10 - Essential (primary) hypertension Status: Acute Assessment and Plan: Uncontrolled Added p.r.n. 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 pending ultrasound of the abdomen Subjective Date/time seen: 05/10/22 14:45 05/09/22 11:42 Probably anemia of chronic disease worsening monitor closely Follow CBC Hgb was 7.6 yesterday and 6.9 today. Will order 1 unit PRBCs Patient has history of GI bleed in the past SCD for DVT prophylaxis 05/10/2022 interval history: 57 y/o male with history of low grad neuroendocrine tumor seen by oncologist and receiving octreotide, the oncologist suspect ascites 2/2 worsening tumor and/or his liver cirrhosis, here with abdomen pain and recurrent ascites, patient had paracentesis upon arrival on 05/06 and 5L was removed, he continue to have enlarging ascites and patient is being diuresed with lasix and spironolactone, his Scr is rising, will schedule paracentesis for today, patient is on ceftriaxone for prophylaxis for SBP, Patient has no new complaints will monitor. Review of Systems Review of Systems: All systems reviewed & are unremarkable except as noted in HPI and below Exam Narrative: Morbidly obese Patient is comfortable, NAD HEENT: eyes are clear and none icteric LUNGS: Normal respiratory effort ABD: Distended ascites Lower extremities: no edema SKIN: nonjaundiced Neuro: grossly inta
[2022-05-10] MEDS: ASPIRIN 81 MG CHEWABLE TABLET PO (14:51)
[2022-05-10] MEDS: hydrALAZINE HCL 50 MG TABLET PO ×2 (14:51→18:03)
[2022-05-10] MEDS: FERROUS SULFATE 324 MG TABLET PO (14:51)
[2022-05-10] MEDS: GABAPENTIN 400 MG CAPSULE PO (14:51)
[2022-05-10] MEDS: PANTOPRAZOLE 40 MG TABLET PO (14:51)
[2022-05-10] MEDS: SPIRONOLACTONE 50 MG TABLET PO (14:51)
--- NOTE | 2022-05-10 16:30 | WPDGIPROGNO ---
Progress Note: A&P Assessment and Plan (1) Ascites: Code(s): R18.8 - Other ascites Status: Acute Assessment and Plan: much better after another paracentesis ok to resume diet and probably can go home tomorrow, then will need to set up LVP as outpatient as needed 2g na diet he can follow-up as outpatient (2) Abdominal pain: Code(s): R10.9 - Unspecified abdominal pain Status: Acute Assessment and Plan: similar also neuroendocrine tumor with known lesions- on octreotide (3) Cirrhosis: Code(s): K74.60 - Unspecified cirrhosis of liver Status: Acute Assessment and Plan: 2g na diet, diuretics- monitor renal function (4) Neuroendocrine cancer: Code(s): C7A.8 - Other malignant neuroendocrine tumors Status: Acute Assessment and Plan: by oncology on octreotide Subjective Date/time seen: 05/10/22 16:30 Interval history: feeling much better after 5 more liters removed today Review of Systems Review of Systems: All systems reviewed & are unremarkable except as noted in HPI and below Exam Narrative: Pt alert and oriented x 4 Const: General: no acute distress and uncomfortable HENMT: Face/Nose/Sinus: Normal nares present Eyes: General: appearance normal, both eyes and all related structures Sclera: sclerae normal Neck: Neck: supple Resp: Effort & Inspection: normal respiratory effort Auscultation: clear to auscultation bilaterally Cardio: Rate: regular rate Rhythm: regular rhythm GI: Inspection: distended GI Palp: No Guarding due to palpation present (GI) Auscultation: normal bowel sounds Other: + fluid wave c/w ascites, no rebound- better Skin: General skin exam: normal color and no rashes or lesions noted Neuro: Speech: normal speech Motor exam (neuro): Normal motor muscle tone present throughout Extrem: General: normal to inspection Psych: Mental Status: mental status grossly normal Affect: normal affect Objective Data Vital Signs Vital Signs: Vital Signs - 24 hr 05/09/22 21:12 05/10/22 06:04 05/10/22 08:00 Temperature 99.0 F 98.2 F Pulse Rate 79 73 Respiratory Rate 16 16 Blood Pressure 116/63 105/60 Pulse Oximetry 97 94 Oxygen Delivery Room Air 05/10/22 14:00 Temperature Pulse Rate 85 Respiratory Rate 16 Blood Pressure 145/84 H Pulse Oximetry 97 Oxygen Delivery Intake/Output Intake/Output: Intake & Output 05/07/22 05/08/22 05/09/22 05/10/22 23:59 23:59 23:59 23:59 Intake Total 1920 1620 1980 300 Output Total 2800 0003 2224 1580 Balance -988 -248 929 -9538 Meds/Results Medications: Active Medications Generic Name Dose Route Start Last Admin Trade Name Freq PRN Reason Stop Dose Admin Acetaminophen 650 mg 05/05/22 21:38 05/06/22 21:24 Acetaminophen 325 Mg Tablet PO 650 mg Q6H PRN Administration Mild Pain (1-3) Aspirin 81 mg 05/07/22 09:00 05/10/22 14:51 Aspirin 81 Mg Chewable Tablet PO 81 mg DAILY MARY Administration Ferrous Sulfate 324 mg 05/07/22 08:00 05/10/22 14:51 Ferrous Sulfate 324 Mg Tablet PO 324 mg DAILY@0800 MARY Administration Furosemide 40 mg 05/06/22 09:00 05/10/22 08:55 Furosemide Inj 40 Mg/4 Ml Vial IV PUSH 40 mg BID MARY Administration Gabapentin 400 mg 05/07/22 09:00 05/10/22 14:51 Gabapentin 400 Mg Capsule PO 400 mg DAILY MARY Administration Hydralazine HCl 10 mg 05/05/22 21:38 05/05/22 22:10 Hydralazine Hcl 20 Mg/Ml Vial IV PUSH 10 mg Q6H PRN Administration Hypertension Hydralazine HCl 50 mg 05/06/22 09:00 05/10/22 14:54 Hydralazine Hcl 50 Mg Tablet PO Not Given TID MARY Hydromorphone HCl 0.5 mg 05/05/22 21:51 05/10/22 08:56 Hydromorphone Hcl Inj (*Crx) 1 Mg/Ml Syr IV PUSH 0.5 mg Q4H PRN Administration Abdominal Cramping Ceftriaxone Sodium 1 gm in 50 mls @ 100 mls/hr 05/06/22 21:00 05/09/22 20:46 Rocephin 1 Gm/Ns 50 Ml IVPB Infused Q24H
[2022-05-10 20:16] VITALS: BP 124/67; PULSE 84; RESP 20; TEMP 36.3; O2SAT 96
[2022-05-10] MEDS: PRAMIPEXOLE 0.125 MG TABLET PO (20:20)
[2022-05-10] MEDS: MELATONIN 5 MG TABLET PO (20:20)
[2022-05-11 03:30] VITALS: BP 125/64; PULSE 68; RESP 20; TEMP 36.2; O2SAT 95
[2022-05-11] MEDS: LEVOTHYROXINE SODIUM 112 MCG TABLET PO (05:31)
[2022-05-11] MEDS: HYDROmorphone HCL INJ (*CRX) 1 MG/ML SYR 0.5 MG IV PUSH ×4 (05:35→20:54)
[2022-05-11 05:40] LABS: Hematocrit 26.2 % (42.0-52.0); Hemoglobin 8.5 g/dL (14.0-18.0); Immature Platelet Fraction Pct 2.9 % (0.9-11.2); Mean Corpuscular HGB Conc 32.4 g/dl (32-36); Mean Corpuscular Hemoglobin 27.7 pg (26-34); Mean Corpuscular Volume 85.3 fl (80-100); Mean Platelet Volume 9.5 fl (7.4-10.4); Platelet Count Result 100 k/mm3 (150-375); Red Blood Count 3.07 M/mm3 (4.6-6.20); Red Cell Distribution Width 20.6 % (11.5-14.5); White Blood Count 3.1 K/mm3 (4.5-10.0)
[2022-05-11 05:51] LABS: Alanine Aminotransferase 14 U/L (6-50); Albumin Level 2.9 g/dL (3.5-5.1); Alkaline Phosphatase 102 U/L (38-126); Anion Gap 2 mmol/L (8-16); Aspartate Amino Transferase 37 U/L (17-59); Bilirubin,Total 3.5 mg/dL (0.2-1.3); Blood Urea Nitrogen 23 mg/dL (9-20); Calcium 8.3 mg/dL (8.4-10.2); Carbon Dioxide 33 mmol/L (22-30); Chloride 101 mmol/L (98-107); Estimated CRCL calculation 50 ml/min; Estimated Glomerular Filt Rate 32; Glucose 99 mg/dL (65-110); Magnesium 1.6 mg/dL (1.6-2.3); Potassium 3.6 mmol/L (3.4-5.0); Sodium 136 mmol/L (137-145)
[2022-05-11] MEDS: ASPIRIN 81 MG CHEWABLE TABLET PO (08:47)
[2022-05-11] MEDS: SPIRONOLACTONE 50 MG TABLET PO (08:47)
[2022-05-11] MEDS: PANTOPRAZOLE 40 MG TABLET PO (08:47)
[2022-05-11] MEDS: hydrALAZINE HCL 50 MG TABLET PO ×3 (08:47→16:34)
[2022-05-11 08:48] VITALS: RESP 20; O2SAT 94
[2022-05-11] MEDS: FERROUS SULFATE 324 MG TABLET PO (08:48)
[2022-05-11] MEDS: FUROSEMIDE INJ 40 MG/4 ML VIAL IV PUSH ×2 (08:48→16:34)
[2022-05-11] MEDS: OCTREOTIDE ACETATE 100 MCG/ML VIAL SUB-Q ×3 (08:48→16:39)
[2022-05-11] MEDS: GABAPENTIN 400 MG CAPSULE PO (08:48)
[2022-05-11] MEDS: SILVERGEL (ELTA) 45 ML 1 APPLIC TOPICAL (08:49)
--- NOTE | 2022-05-11 11:47 | PCNFU ---
Nutrition Follow-Up Complete: Inadequate oral intake related to NPO status, loss of appetite, chronic illness as evidenced by weight changes and pt report of poor appetite Goal: Adequate PO intake when diet is advanced Patient is meeting goal. No new goal. Pt current nutrition is 2 gm Na. Last recorded weight is 128 kg. Bowel Motility:+Bm reported 05/08 Labs Reviewed:Cr 2.10,GFR 32, BUN 32, Alb 2.9 Meds Noted:Lasix, Protonix Skin: WNL Additional Notes: Patient remains on a 2 gm Na diet. Paracentesis performed 05/10 removed 5 L fluid. Oral Intake has been greater than 75% of most meals. Agree with diet orders. Monitoring diet advancement, intakes, weights, labs, plan of care. Follow up in 7 days.
--- NOTE | 2022-05-11 12:49 | PM.IMPN ---
Progress Note: A&P Assessment and Plan (1) Anemia: Code(s): D64.9 - Anemia, unspecified Status: Acute Assessment and Plan: 05/09/22 11:42 Probably anemia of chronic disease worsening monitor closely Follow CBC Hgb was 7.6 yesterday and 6.9 today. Will order 1 unit PRBCs Patient has history of GI bleed in the past SCD for DVT prophylaxis 05/10/2022 interval history: 57 y/o male with history of low grad neuroendocrine tumor seen by oncologist and receiving octreotide, the oncologist suspect ascites 2/2 worsening tumor and/or his liver cirrhosis, here with abdomen pain and recurrent ascites, patient had paracentesis upon arrival on 05/06 and 5L was removed, he continue to have enlarging ascites and patient is being diuresed with lasix and spironolactone, his Scr is rising, will schedule paracentesis for today, patient is on ceftriaxone for prophylaxis for SBP, Patient has no new complaints will monitor. (2) Hypothyroidism: Code(s): E03.9 - Hypothyroidism, unspecified Status: Acute Assessment and Plan: Resume home medication (3) Abdominal pain: Code(s): R10.9 - Unspecified abdominal pain Status: Acute Assessment and Plan: Most likely related to ascites UTI and neuroendocrine tumor Pain control Paracentesis IV antibiotics IV Protonix (4) UTI (urinary tract infection): Code(s): N39.0 - Urinary tract infection, site not specified Status: Acute Assessment and Plan: IV antibiotic follow culture results (5) Neuroendocrine cancer: Code(s): C7A.8 - Other malignant neuroendocrine tumors Status: Acute Assessment and Plan: Heme-Onc was consulted- appreciate input (6) HTN (hypertension) with goal to be determined: Code(s): I10 - Essential (primary) hypertension Status: Acute Assessment and Plan: Uncontrolled Added p.r.n. 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 pending ultrasound of the abdomen Subjective Date/time seen: 05/11/22 12:49 Probably anemia of chronic disease worsening monitor closely Follow CBC Hgb was 7.6 yesterday and 6.9 today. Will order 1 unit PRBCs Patient has history of GI bleed in the past SCD for DVT prophylaxis 05/11/2022 interval history: 57 y/o male with history of low grad neuroendocrine tumor seen by oncologist and receiving octreotide, the oncologist suspect ascites 2/2 worsening tumor and/or his liver cirrhosis, here with abdomen pain and recurrent ascites, patient had paracentesis upon arrival on 05/06 and 5L was removed, he continue to have enlarging ascites and patient is being diuresed with lasix and spironolactone, his Scr is rising, and patient had again paracentesis on 05/10 and 5L was removed, patient continue to have abdominal pain most likely 2/2 to the tumors, will consult general surgery, patient is on ceftriaxone for prophylaxis for SBP, Patient has no new complaints will monitor. Review of Systems Review of Systems: All systems reviewed & are unremarkable except as noted in HPI and below Exam Narrative: Morbidly obese Patient is comfortable, NAD HEENT: eyes are clear and none icteric LUNGS: Normal re
[2022-05-11 13:04] VITALS: O2SAT 94
[2022-05-11 14:00] VITALS: BP 117/68; PULSE 75; RESP 18; TEMP 36.4; O2SAT 95
--- NOTE | 2022-05-11 14:37 | WPDGIPROGNO ---
Progress Note: A&P Assessment and Plan (1) Ascites: Code(s): R18.8 - Other ascites Status: Acute Assessment and Plan: improved after paracentesis but still with chronic abdominal pain liquid study was negative for SBP, can stop antibiotic he also will need to set up LVP as outpatient as needed 2g na diet (2) Abdominal pain: Code(s): R10.9 - Unspecified abdominal pain Status: Acute Assessment and Plan: similar also neuroendocrine tumor with known lesions in liver (stable since last CT scan) and lymph nodes (will check also AFP level)- on octreotide and he is seeing by hem-onc (3) Cirrhosis: Code(s): K74.60 - Unspecified cirrhosis of liver Status: Acute Assessment and Plan: 2g na diet, diuretics- monitor renal function, creat ~ 2 (4) Neuroendocrine cancer: Code(s): C7A.8 - Other malignant neuroendocrine tumors Status: Acute Assessment and Plan: by oncology on octreotide Subjective Date/time seen: 05/11/22 14:37 Interval history: no changes, similar chronic abdominal pain Review of Systems Review of Systems: All systems reviewed & are unremarkable except as noted in HPI and below Exam Narrative: Pt alert and oriented x 4 Const: General: no acute distress and uncomfortable HENMT: Face/Nose/Sinus: Normal nares present Eyes: General: appearance normal, both eyes and all related structures Sclera: sclerae normal Neck: Neck: supple Resp: Effort & Inspection: normal respiratory effort Auscultation: clear to auscultation bilaterally Cardio: Rate: regular rate Rhythm: regular rhythm GI: Inspection: distended GI Palp: Yes Tenderness to palpation present (GI) and No Guarding due to palpation present (GI) Auscultation: normal bowel sounds Other: + fluid wave c/w ascites, no rebound- better Skin: General skin exam: normal color and no rashes or lesions noted Neuro: Speech: normal speech Motor exam (neuro): Normal motor muscle tone present throughout Extrem: General: normal to inspection Psych: Mental Status: mental status grossly normal Affect: normal affect Objective Data Vital Signs Vital Signs: Vital Signs - 24 hr 05/10/22 20:16 05/11/22 03:30 05/11/22 08:48 Temperature 97.3 F L 97.2 F L Pulse Rate 84 68 Respiratory Rate 20 20 20 Blood Pressure 124/67 125/64 Pulse Oximetry 96 95 94 Oxygen Delivery Room Air 05/11/22 13:04 Temperature Pulse Rate Respiratory Rate Blood Pressure Pulse Oximetry 94 Oxygen Delivery Room Air Intake/Output Intake/Output: Intake & Output 05/08/22 05/09/22 05/10/22 05/11/22 23:59 23:59 23:59 23:59 Intake Total 1620 6441 235 4353 Output Total 3055 0337 7170 [address] [id number] [phone] -[phone] -570 Meds/Results Medications: Active Medications Generic Name Dose Route Start Last Admin Trade Name Freq PRN Reason Stop Dose Admin Acetaminophen 650 mg 05/05/22 21:38 05/06/22 21:24 Acetaminophen 325 Mg Tablet PO 650 mg Q6H PRN Administration Mild Pain (1-3) Aspirin 81 mg 05/07/22 09:00 05/11/22 08:47 Aspirin 81 Mg Chewable Tablet PO 81 mg DAILY MARY Administration Ferrous Sulfate 324 mg 05/07/22 08:00 05/11/22 08:48 Ferrous Sulfate 324 Mg Tablet PO 324 mg DAILY@0800 MARY Administration Furosemide 40 mg 05/06/22 09:00 05/11/22 08:48 Furosemide Inj 40 Mg/4 Ml Vial IV PUSH 40 mg BID MARY Administration Gabapentin 400 mg 05/07/22 09:00 05/11/22 08:48 Gabapentin 400 Mg Capsule PO 400 mg DAILY MARY Administration Hydralazine HCl 10 mg 05/05/22 21:38 05/05/22 22:10 Hydralazine Hcl 20 Mg/Ml Vial IV PUSH 10 mg Q6H PRN Administration Hypertension Hydralazine HCl 50 mg 05/06/22 09:00 05/11/22 12:22 Hydralazine Hcl 50 Mg Tablet PO 50 mg TID MARY Administration Hydromorphone HCl 0.5 mg 05/05/22 21:51 05/11/22 10:34 Hydromorphone Hcl Inj (*Crx) 1 Mg/Ml Syr IV PUSH 0.5 mg Q4H PRN
[2022-05-11 20:00] VITALS: PULSE 84; RESP 20; O2SAT 98
[2022-05-11 20:06] VITALS: BP 127/72; PULSE 84; RESP 20; TEMP 36.7; O2SAT 98
[2022-05-11] MEDS: PRAMIPEXOLE 0.125 MG TABLET PO (20:56)
[2022-05-11] MEDS: MELATONIN 5 MG TABLET PO (20:56)
[2022-05-12 03:08] VITALS: BP 110/48; PULSE 84; RESP 20; TEMP 36.4; O2SAT 94
[2022-05-12] MEDS: HYDROmorphone HCL INJ (*CRX) 1 MG/ML SYR 0.5 MG IV PUSH ×2 (04:03→14:23)
[2022-05-12 05:52] LABS: Hematocrit 28.9 % (42.0-52.0); Hemoglobin 9.4 g/dL (14.0-18.0); Mean Corpuscular HGB Conc 32.5 g/dl (32-36); Mean Corpuscular Hemoglobin 27.6 pg (26-34); Mean Platelet Volume 10.6 fl (7.4-10.4); Platelet Count Result 108 k/mm3 (150-375); Red Cell Distribution Width 20.9 % (11.5-14.5); White Blood Count 3.7 K/mm3 (4.5-10.0)
[2022-05-12 06:05] LABS: Alanine Aminotransferase 15 U/L (6-50); Albumin Level 3.2 g/dL (3.5-5.1); Alkaline Phosphatase 124 U/L (38-126); Anion Gap 7 mmol/L (8-16); Aspartate Amino Transferase 39 U/L (17-59); Bilirubin,Total 3.9 mg/dL (0.2-1.3); Blood Urea Nitrogen 28 mg/dL (9-20); Calcium 8.1 mg/dL (8.4-10.2); Carbon Dioxide 30 mmol/L (22-30); Chloride 98 mmol/L (98-107); Estimated CRCL calculation 50 ml/min; Estimated Glomerular Filt Rate 32; Glucose 108 mg/dL (65-110); Magnesium 1.7 mg/dL (1.6-2.3); Potassium 3.7 mmol/L (3.4-5.0); Sodium 135 mmol/L (137-145)
[2022-05-12] MEDS: LEVOTHYROXINE SODIUM 112 MCG TABLET PO (06:14)
[2022-05-12] MEDS: FERROUS SULFATE 324 MG TABLET PO (08:44)
[2022-05-12] MEDS: FUROSEMIDE INJ 40 MG/4 ML VIAL IV PUSH (08:44)
[2022-05-12] MEDS: ASPIRIN 81 MG CHEWABLE TABLET PO (08:44)
[2022-05-12] MEDS: OCTREOTIDE ACETATE 100 MCG/ML VIAL SUB-Q ×2 (08:44→12:09)
[2022-05-12] MEDS: hydrALAZINE HCL 50 MG TABLET PO ×2 (08:45→12:09)
[2022-05-12] MEDS: GABAPENTIN 400 MG CAPSULE PO (08:45)
[2022-05-12] MEDS: PANTOPRAZOLE 40 MG TABLET PO (08:45)
[2022-05-12] MEDS: SPIRONOLACTONE 50 MG TABLET PO (08:46)
[2022-05-12] MEDS: SILVERGEL (ELTA) 45 ML 1 APPLIC TOPICAL (08:46)
--- NOTE | 2022-05-12 11:52 | PM.DS ---
DS: Admitting Diagnosis Discharge Date April 12, 2022 Admitting Diagnosis Abdominal ascites DS: Discharge Diagnosis Discharge Diagnosis (1) Anemia: Code(s): D64.9 - Anemia, unspecified Status: Acute (2) Hypothyroidism: Code(s): E03.9 - Hypothyroidism, unspecified Status: Acute (3) Abdominal pain: Code(s): R10.9 - Unspecified abdominal pain Status: Acute (4) UTI (urinary tract infection): Code(s): N39.0 - Urinary tract infection, site not specified Status: Acute (5) Neuroendocrine cancer: Code(s): C7A.8 - Other malignant neuroendocrine tumors Status: Acute (6) HTN (hypertension) with goal to be determined: Code(s): I10 - Essential (primary) hypertension Status: Acute (7) Ascites: Code(s): R18.8 - Other ascites Status: Acute (8) Acute renal failure: Code(s): N17.9 - Acute kidney failure, unspecified Status: Acute (9) Right upper quadrant pain: Code(s): R10.11 - Right upper quadrant pain Status: Acute DS: Summary Hospital Course Hospital Course: Patient is a 57-year-old male who came in with abdominal ascites abdominal such. He has a history of a neuroendocrine tumor and also cirrhosis. Patient was not any liver failure. He will need follow-up with GI as an outpatient for large volume paracentesis as needed. Time Spent with Patient Time attestation: Total time spent providing and/or coordinating discharge services: Exam Const: General: no acute distress and uncomfortable HENMT: Face/Nose/Sinus: Normal nares present Mouth: Yes moist mucous membranes Eyes: General: appearance normal, both eyes and all related structures Sclera: sclerae normal Neck: Neck: supple and no JVD Resp: Effort & Inspection: normal respiratory effort Auscultation: clear to auscultation bilaterally and diminished lung sounds bilateral in the lower lung anders Cardio: Rate: regular rate Rhythm: regular rhythm GI: Inspection: distended Auscultation: normal bowel sounds Skin: General skin exam: normal color and no rashes or lesions noted Neuro: Cranial nerves: Yes Normal hearing present Speech: normal speech and No Abnormal speech present Motor exam (neuro): Normal motor muscle tone present throughout Extrem: General: normal to inspection Psych: Mental Status: mental status grossly normal Affect: normal affect DS: Data Data Completed and Pending Completed studies during hospitalization: Pending at discharge 05/05/22 21:40 Cytology [PTH] Routine Labs on day of discharge: Labs from last 24 hours 05/12/22 05/12/22 05/12/22 05:37 05:37 05:37 WBC 3.7 L RBC 3.40 L Hgb 9.4 L Hct 28.9 L MCV 85.0 MCH 27.6 MCHC 32.5 RDW 20.9 H Plt Count 108 L MPV 10.6 H Sodium 135 L Potassium 3.7 Chloride 98 Carbon Dioxide 30 Anion Gap 7 L BUN 28 H Creatinine 2.10 H Estim Creat Clear Calc 50 Estimated GFR 32 L Glucose 108 Calcium 8.1 L Magnesium 1.7 Total Bilirubin 3.9 H AST 39 ALT 15 Alkaline Phosphatase 124 Total Protein 8.0 Albumin 3.2 L Alpha Fetoprotein Pending Discharge Plan Discharge Attending physician on discharge: Samir Dunn Consulting providers: Gerardo Bui ; Chandler Woodall I. ; Gino Metz Discharging Clinician: Samir Dunn Patient Disposition: Home, Self-Care Activity: no preference Diet: as tolerated Patient Instructions: Antibiotic Form, Pain Management (DC) Stand Alone Forms: General Discharge Information Follow-up/Referrals: David Puri MD [Physician] - Gerardo Bui MD [Physician] - Discharge Medications: New furosemide 20 mg tablet 20 mg PO DAILY Qty: 30 0RF Continued gabapentin 400 mg capsule 400 mg PO DAILY pramipexole 0.125 mg tablet 0.125 mg PO HS levothyroxine 112
[2022-05-12 14:25] VITALS: BP 118/66; PULSE 86; RESP 17; TEMP 36.6; O2SAT 96
--- NOTE | 2022-05-12 14:35 | WPDGIPROGNO ---
Progress Note: A&P Assessment and Plan (1) Ascites: Code(s): R18.8 - Other ascites Status: Acute Assessment and Plan: improved after paracentesis but still with chronic abdominal pain liquid study was negative for SBP patient wishing to enroll in hospice, he can always follow-up if needs another LVP but seems that he is going to be just in comfort (2) Abdominal pain: Code(s): R10.9 - Unspecified abdominal pain Status: Acute Assessment and Plan: similar neuroendocrine tumor with known lesions in liver (stable since last CT scan) and lymph nodes (pending AFP level)- on octreotide and he is seeing by hem-onc (3) Cirrhosis: Code(s): K74.60 - Unspecified cirrhosis of liver Status: Acute Assessment and Plan: 2g na diet, diuretics- monitor renal function, creat stable ~ 2 (4) Neuroendocrine cancer: Code(s): C7A.8 - Other malignant neuroendocrine tumors Status: Acute Assessment and Plan: by oncology on octreotide Subjective Date/time seen: 05/12/22 14:35 Interval history: no major changes, chronic abdominal pain as usual. He is going home and decided to use hospice Review of Systems Review of Systems: All systems reviewed & are unremarkable except as noted in HPI and below Exam Narrative: Pt alert and oriented x 4 Const: General: no acute distress and uncomfortable HENMT: Face/Nose/Sinus: Normal nares present Eyes: General: appearance normal, both eyes and all related structures Sclera: sclerae normal Neck: Neck: supple Resp: Effort & Inspection: normal respiratory effort Auscultation: clear to auscultation bilaterally Cardio: Rate: regular rate Rhythm: regular rhythm GI: Inspection: distended GI Palp: Yes Tenderness to palpation present (GI) and No Guarding due to palpation present (GI) Auscultation: normal bowel sounds Other: + fluid wave c/w ascites, no rebound- better Skin: General skin exam: normal color and no rashes or lesions noted Neuro: Speech: normal speech Motor exam (neuro): Normal motor muscle tone present throughout Extrem: General: normal to inspection Psych: Mental Status: mental status grossly normal Affect: normal affect Objective Data Vital Signs Vital Signs: Vital Signs - 24 hr 05/11/22 20:06 05/11/22 20:00 05/12/22 03:08 Temperature 98.1 F 97.6 F Pulse Rate 84 84 84 Respiratory Rate 20 20 20 Blood Pressure 127/72 110/48 L Pulse Oximetry 98 98 94 Oxygen Delivery Room Air 05/12/22 08:45 05/12/22 14:25 Temperature 98 F Pulse Rate 86 Respiratory Rate 17 Blood Pressure 118/66 Pulse Oximetry 96 Oxygen Delivery Room Air Intake/Output Intake/Output: Intake & Output 05/09/22 05/10/22 05/11/22 05/12/22 23:59 23:59 23:59 23:59 Intake Total 2479 067 1398 990 Output Total 1250 5875 3200 700 Balance 976 -0132 -505 290 Meds/Results Medications: Active Medications Generic Name Dose Route Start Last Admin Trade Name Freq PRN Reason Stop Dose Admin Acetaminophen 650 mg 05/05/22 21:38 05/06/22 21:24 Acetaminophen 325 Mg Tablet PO 650 mg Q6H PRN Administration Mild Pain (1-3) Aspirin 81 mg 05/07/22 09:00 05/12/22 08:44 Aspirin 81 Mg Chewable Tablet PO 81 mg DAILY MARY Administration Ferrous Sulfate 324 mg 05/07/22 08:00 05/12/22 08:44 Ferrous Sulfate 324 Mg Tablet PO 324 mg DAILY@0800 MARY Administration Furosemide 40 mg 05/06/22 09:00 05/12/22 08:44 Furosemide Inj 40 Mg/4 Ml Vial IV PUSH 40 mg BID MARY Administration Gabapentin 400 mg 05/07/22 09:00 05/12/22 08:45 Gabapentin 400 Mg Capsule PO 400 mg DAILY MARY Administration Hydralazine HCl 10 mg 05/05/22 21:38 05/05/22 22:10 Hydralazine Hcl 20 Mg/Ml Vial IV PUSH 10 mg Q6H PRN Administration Hypertension Hydralazine HCl 50 mg 05/06/22 09:00 05/12/22 12:09 Hydralazine Hcl 50 Mg Tablet PO 50 mg TID MARY Administration [employer]
[2022-05-17 16:37] LABS: Alpha Fetoprotein Tumor Marker 4.2 ng/mL (<6.1)
== END 2022-05-12 15:42 | disposition hospice, home (50) | DRG 433 ==
LOC: ANHED 21:51 → ANH2MED 05-06 09:09
PROVIDERS: Emergency Medicine; Family Medicine; Internal Medicine Gastroenterology; Nurse Practitioner Family; Admitting Provider Internal Medicine; Emergency Provider Emergency Medicine; PCP Nurse Practitioner Family; Visit Provider Chiropractor
DX: K74.60 Unspecified cirrhosis of liver (principal); C7A.8 Other malignant neuroendocrine tumors; R18.8 Other ascites; N39.0 Urinary tract infection, site not specified; N17.9 Acute kidney failure, unspecified; D64.9 Anemia, unspecified; E03.9 Hypothyroidism, unspecified; I10 Essential (primary) hypertension; Z89.511 Acquired absence of right leg below knee; Z88.0 Allergy status to penicillin; Z88.5 Allergy status to narcotic agent; Z79.899 Other long term (current) drug therapy
CPT/HCPCS: 36415; 36430; 49083; 74177; 76705; 80053; 81001; 82040; 82042; 82105; 82140; 82150; 82945; 83605; 83615; 83690; 83735; 84157; 85014; 85018; 85025; 85027; 85055; 85610; 85730; 86850; 86900; 86901; 86923; 87040; 87070; 87075; 87205; 88108; 88305; 88342; 89051; 93306; 96361; 96365; 96374; 96375; 99285; A9270; C9113; G0378; J0360; J0696; J1170; J1940; J2354; J3480; J7030; J7050; P9016; Q9967

== ENCOUNTER 2022-06-11 09:23 | Outpatient (CLI) | payer OTHER, SELFPAY ==
--- NOTE | ~2022-06-11 | US_ITS ---
EXAMINATION: US paracentesis abd w/image DATE: 06/11/2022 11:16 INDICATION: Ascites. Malignant neuroendocrine tumor. TECHNIQUE: The procedure and its risks and benefits were discussed with the patient. Potential risks discussed included bleeding and infection. The skin was prepped and draped in sterile fashion. 1% lid ocaine was used for local anesthesia. Under ultrasound guidance, a 5 Fr catheter with trochar was adv anced into the ascites in the left lower quadrant. Fluid was aspirated into vacuum bottles. The cynthia ter was removed, and a dressing was applied. There were no immediate complications. FINDINGS: Ultrasound images demonstrate ascites and the catheter within the fluid. IMPRESSION: 1. Successful ultrasound-guided paracentesis yielding 5000 mL of cloudy yellow fluid. Reviewed, dictated and finalized at location A.
[2022-06-11 10:48] LABS: INR 1.4; Prothrombin Time 16.5 Seconds (11.1-14.7)
== END 2022-06-11 09:24 | disposition home or self-care (01) ==
PROVIDERS: PCP Nurse Practitioner Family; Visit Provider Internal Medicine Nephrology
DX: C7A.8 Other malignant neuroendocrine tumors (principal); R18.8 Other ascites
CPT/HCPCS: 36415; 49083; 85610; 85730